=== PATIENT | female | born 1960 | race Caucasian/White ===

== ENCOUNTER → 2023-10-04 09:33 | Outpatient (REF) | payer OTHER, SELFPAY ==
[2023-10-04 10:17] LABS: % Basophils 0.3 % (0-2); % Eosinophils 0.5 % (0-6); % Immature Granulocytes 0.3 % (0-0.5); % Lymphocytes 42.2 % (20.5-51.1); % Monocytes 11.6 % (1.7-9.3); % Neutrophils 45.1 % (42.2-75.2); Absolute Lymphocytes 1.7 10^3/uL (1.2-3.4); Absolute Monocytes 0.5 10^3/uL (0.1-0.6); Absolute Neutrophils 1.8 10^3/uL (1.4-6.5); Hematocrit 28.9 % (37.0-47.0); Hemoglobin 10.2 g/dL (12.0-16.0); Mean Corp Hgb Conc. 35.3 g/dL (33.0-37.0); Mean Corpuscular Hgb 33.1 pg (27.0-31.0); Mean Corpuscular Volume 93.8 fL (81.0-99.0); Mean Platelet Volume 9.5 fL (7.4-10.4); Nucleated Red Blood Cells % 0 %; Platelet Count 117 10^3/uL (130-400); Red Blood Cell Count 3.08 10^6/uL (4.20-5.40); Red Cell Dist. Width 21.8 % (11.5-14.5)
[2023-10-04 13:09] LABS: ALT (SGPT) 19 U/L (0-35); AST (SGOT) 22 U/L (14-36); Albumin 3.9 g/dl (3.5-5.0); Alkaline Phosphatase 162 U/L (38-126); Blood Urea Nitrogen 13 mg/dl (7-17); Calcium 9.2 mg/dl (8.4-10.2); Carbon Dioxide 23 mmol/L (22-30); Chloride 101 mmol/L (98-107); Glucose 89 mg/dl (70-99); Potassium 4.4 mmol/L (3.5-5.1); Sodium 132 mmol/L (135-145); Total Bilirubin 0.5 mg/dl (0.2-1.3); Total Protein 6.1 g/dl (6.3-8.2); eGFR > 60.00
== END ==
LOC: REG 09:33
PROVIDERS: ATTENDING PHYSICIAN Internal Medicine Hematology & Oncology; FAMILY PHYSICIAN Family Medicine
DX: C56.9 Malignant neoplasm of unspecified ovary (principal); Z72.0 Tobacco use; R18.0 Malignant ascites; J91.0 Malignant pleural effusion; Z80.3 Family history of malignant neoplasm of breast; Z80.0 Family history of malignant neoplasm of digestive organs; D75.839 Thrombocytosis, unspecified; G89.3 Neoplasm related pain (acute) (chronic); E46 Unspecified protein-calorie malnutrition
CPT/HCPCS: 36415; 80053; 85025

== ENCOUNTER → 2023-10-11 09:38 | Outpatient (REF) | payer OTHER, SELFPAY ==
[2023-10-11 11:00] LABS: % Basophils 0.3 % (0-2); % Eosinophils 1.1 % (0-6); % Lymphocytes 41.1 % (20.5-51.1); % Neutrophils 54.5 % (42.2-75.2); Absolute Lymphocytes 1.5 10^3/uL (1.2-3.4); Absolute Monocytes 0.1 10^3/uL (0.1-0.6); Hematocrit 28.1 % (37.0-47.0); Hemoglobin 9.9 g/dL (12.0-16.0); Mean Corp Hgb Conc. 35.2 g/dL (33.0-37.0); Mean Corpuscular Hgb 33.4 pg (27.0-31.0); Mean Corpuscular Volume 94.9 fL (81.0-99.0); Nucleated Red Blood Cells % 0 %; Red Blood Cell Count 2.96 10^6/uL (4.20-5.40); Red Cell Dist. Width 22.7 % (11.5-14.5); White Blood Cell Count 3.7 10^3/uL (4.8-10.8)
[2023-10-11 11:23] LABS: ALT (SGPT) 15 U/L (0-35); AST (SGOT) 22 U/L (14-36); Albumin 3.8 g/dl (3.5-5.0); Alkaline Phosphatase 106 U/L (38-126); Blood Urea Nitrogen 11 mg/dl (7-17); Calcium 9.3 mg/dl (8.4-10.2); Carbon Dioxide 24 mmol/L (22-30); Chloride 100 mmol/L (98-107); Glucose 94 mg/dl (70-99); Potassium 4.8 mmol/L (3.5-5.1); Sodium 133 mmol/L (135-145); Total Bilirubin 0.5 mg/dl (0.2-1.3); Total Protein 5.9 g/dl (6.3-8.2); eGFR > 60.00
[2023-10-11 12:07] LABS: Mean Platelet Volume 10.6 fL (7.4-10.4); Platelet Count 67 10^3/uL (130-400)
[2023-10-11 12:08] LABS: Anisocytosis 1+; Normal RBC Morphology No; Ovalocytes Slight
[2023-10-11 12:09] LABS: Tear Drop Red Blood Cells Slight
== END ==
LOC: REG 09:38
PROVIDERS: ATTENDING PHYSICIAN Internal Medicine Hematology & Oncology; FAMILY PHYSICIAN Family Medicine
DX: C56.9 Malignant neoplasm of unspecified ovary (principal); Z72.0 Tobacco use; R18.0 Malignant ascites; J91.0 Malignant pleural effusion; Z80.3 Family history of malignant neoplasm of breast; D75.839 Thrombocytosis, unspecified; G89.3 Neoplasm related pain (acute) (chronic); E46 Unspecified protein-calorie malnutrition
CPT/HCPCS: 36415; 80053; 85025

== ENCOUNTER → 2023-10-18 10:29 | Outpatient (REF) | payer OTHER, SELFPAY ==
[2023-10-18 11:44] LABS: Hematocrit 25.1 % (37.0-47.0); Hemoglobin 8.7 g/dL (12.0-16.0); Mean Corp Hgb Conc. 34.7 g/dL (33.0-37.0); Mean Corpuscular Hgb 33.1 pg (27.0-31.0); Mean Corpuscular Volume 95.4 fL (81.0-99.0); Mean Platelet Volume 10.5 fL (7.4-10.4); Nucleated Red Blood Cells % 0 %; Platelet Count 157 10^3/uL (130-400); Red Blood Cell Count 2.63 10^6/uL (4.20-5.40); White Blood Cell Count 2.7 10^3/uL (4.8-10.8)
[2023-10-18 12:02] LABS: ALT (SGPT) 18 U/L (0-35); AST (SGOT) 25 U/L (14-36); Albumin 3.9 g/dl (3.5-5.0); Alkaline Phosphatase 132 U/L (38-126); Blood Urea Nitrogen 9 mg/dl (7-17); Calcium 8.8 mg/dl (8.4-10.2); Carbon Dioxide 23 mmol/L (22-30); Chloride 104 mmol/L (98-107); Glucose 88 mg/dl (70-99); Potassium 4.4 mmol/L (3.5-5.1); Sodium 130 mmol/L (135-145); Total Bilirubin 0.3 mg/dl (0.2-1.3); eGFR > 60.00
[2023-10-18 15:05] LABS: Absolute Neutrophils -Man Diff 0.9 10^3/uL (1.4-6.5); Atypical Lymphocytes 4 %; Band Neutrophils 0 % (0-3); Lymphocytes 53 % (20-51); Monocytes 6 % (2-9); Segmented Neutrophils 36 % (42-75)
[2023-10-18 15:07] LABS: Platelets Checked Yes
[2023-10-18 15:09] LABS: Acanthocytes Slight; Anisocytosis 1+; Hypochromasia 1+; Normal RBC Morphology No; Ovalocytes 1+; Total Cells Counted 100
== END ==
LOC: REG 10:29
PROVIDERS: ATTENDING PHYSICIAN Internal Medicine Hematology & Oncology; FAMILY PHYSICIAN Family Medicine
DX: C56.9 Malignant neoplasm of unspecified ovary (principal); Z72.0 Tobacco use; R18.0 Malignant ascites; J91.0 Malignant pleural effusion; Z80.3 Family history of malignant neoplasm of breast; Z80.0 Family history of malignant neoplasm of digestive organs; D75.839 Thrombocytosis, unspecified; G89.3 Neoplasm related pain (acute) (chronic); E46 Unspecified protein-calorie malnutrition
CPT/HCPCS: 36415; 80053; 85025

== ENCOUNTER → 2023-10-19 09:05 | Outpatient (REF) | payer OTHER, SELFPAY | LOC: HWRAD 09:05 | PROVIDERS: ATTENDING PHYSICIAN Obstetrics & Gynecology; FAMILY PHYSICIAN Family Medicine | DX: C56.3 Malignant neoplasm of bilateral ovaries (principal) | CPT/HCPCS: 71260; 74177; Q9967 ==

== ENCOUNTER → 2023-10-25 10:00 | Outpatient (REF) | payer OTHER, SELFPAY ==
[2023-10-25 10:43] LABS: % Immature Granulocytes 0.4 % (0-0.5); % Lymphocytes 55.2 % (20.5-51.1); % Monocytes 15.8 % (1.7-9.3); % Neutrophils 28.6 % (42.2-75.2); Absolute Lymphocytes 1.5 10^3/uL (1.2-3.4); Absolute Monocytes 0.4 10^3/uL (0.1-0.6); Absolute Neutrophils 0.8 10^3/uL (1.4-6.5); Hemoglobin 9.5 g/dL (12.0-16.0); Mean Corp Hgb Conc. 35.2 g/dL (33.0-37.0); Mean Corpuscular Hgb 34.1 pg (27.0-31.0); Mean Corpuscular Volume 96.8 fL (81.0-99.0); Mean Platelet Volume 9.1 fL (7.4-10.4); Nucleated Red Blood Cells % 0 %; Platelet Count 142 10^3/uL (130-400); Red Blood Cell Count 2.79 10^6/uL (4.20-5.40); Red Cell Dist. Width 25.8 % (11.5-14.5); White Blood Cell Count 2.8 10^3/uL (4.8-10.8)
[2023-10-25 11:16] LABS: ALT (SGPT) 18 U/L (0-35); AST (SGOT) 21 U/L (14-36); Albumin 4.2 g/dl (3.5-5.0); Alkaline Phosphatase 145 U/L (38-126); Blood Urea Nitrogen 10 mg/dl (7-17); Carbon Dioxide 23 mmol/L (22-30); Chloride 103 mmol/L (98-107); Glucose 89 mg/dl (70-99); Potassium 4.7 mmol/L (3.5-5.1); Sodium 131 mmol/L (135-145); Total Bilirubin 0.5 mg/dl (0.2-1.3); Total Protein 6.4 g/dl (6.3-8.2); eGFR > 60.00
== END ==
LOC: REG 10:00
PROVIDERS: ATTENDING PHYSICIAN Internal Medicine Hematology & Oncology; FAMILY PHYSICIAN Family Medicine
DX: C56.9 Malignant neoplasm of unspecified ovary (principal); Z72.0 Tobacco use; R18.0 Malignant ascites; J91.0 Malignant pleural effusion; Z80.3 Family history of malignant neoplasm of breast; Z80.0 Family history of malignant neoplasm of digestive organs
CPT/HCPCS: 36415; 80053; 85025

== ENCOUNTER → 2023-11-08 10:19 | Outpatient (REF) | payer OTHER, SELFPAY ==
[2023-11-08 11:12] LABS: Hematocrit 26.1 % (37.0-47.0); Hemoglobin 9.3 g/dL (12.0-16.0); Mean Corp Hgb Conc. 35.6 g/dL (33.0-37.0); Mean Corpuscular Hgb 37.1 pg (27.0-31.0); Mean Platelet Volume 10.9 fL (7.4-10.4); Platelet Count 109 10^3/uL (130-400); Red Blood Cell Count 2.51 10^6/uL (4.20-5.40); Red Cell Dist. Width 26.4 % (11.5-14.5); White Blood Cell Count 16.3 10^3/uL (4.8-10.8)
[2023-11-08 11:41] LABS: ALT (SGPT) 20 U/L (0-35); AST (SGOT) 24 U/L (14-36); Alkaline Phosphatase 166 U/L (38-126); Blood Urea Nitrogen 7 mg/dl (7-17); Carbon Dioxide 23 mmol/L (22-30); Chloride 100 mmol/L (98-107); Glucose 84 mg/dl (70-99); Potassium 4.5 mmol/L (3.5-5.1); Sodium 128 mmol/L (135-145); Total Bilirubin 0.4 mg/dl (0.2-1.3); eGFR > 60.00
[2023-11-08 11:57] LABS: Absolute Neutrophils -Man Diff 8.8 10^3/uL (1.4-6.5); Anisocytosis 1+; Band Neutrophils 11 % (0-3); Hypochromasia 1+; Lymphocytes 31 % (20-51); Microcytosis 1+; Monocytes 15 % (2-9); Normal RBC Morphology No; Ovalocytes Slight; Platelets Checked Yes; Poikilocytosis 1+; Segmented Neutrophils 43 % (42-75)
[2023-11-08 11:58] LABS: Total Cells Counted 100
== END ==
LOC: REG 10:19
PROVIDERS: ATTENDING PHYSICIAN Internal Medicine Hematology & Oncology; FAMILY PHYSICIAN Family Medicine
DX: C56.9 Malignant neoplasm of unspecified ovary (principal); Z72.0 Tobacco use; R18.0 Malignant ascites; J91.0 Malignant pleural effusion; Z80.3 Family history of malignant neoplasm of breast; Z80.0 Family history of malignant neoplasm of digestive organs; D75.839 Thrombocytosis, unspecified; G89.3 Neoplasm related pain (acute) (chronic); E46 Unspecified protein-calorie malnutrition
CPT/HCPCS: 36415; 80053; 85025

== ENCOUNTER → 2023-11-10 09:01 | Outpatient (REF) | payer OTHER, SELFPAY | LOC: RAD 09:01 | PROVIDERS: ATTENDING PHYSICIAN Internal Medicine Hematology & Oncology; FAMILY PHYSICIAN Family Medicine | DX: C56.9 Malignant neoplasm of unspecified ovary (principal); G89.3 Neoplasm related pain (acute) (chronic); Z72.0 Tobacco use; R18.0 Malignant ascites; J91.0 Malignant pleural effusion; Z80.3 Family history of malignant neoplasm of breast; Z80.0 Family history of malignant neoplasm of digestive organs; D75.839 Thrombocytosis, unspecified; E46 Unspecified protein-calorie malnutrition | CPT/HCPCS: 74177; Q9967 ==

== ENCOUNTER → 2023-11-15 08:36 | Outpatient (REF) | payer OTHER, SELFPAY ==
[2023-11-15 09:26] LABS: % Basophils 0.4 % (0-2); % Eosinophils 0.4 % (0-6); % Immature Granulocytes 8.8 % (0-0.5); % Monocytes 8.4 % (1.7-9.3); Absolute Basophils 0.1 10^3/uL (0-0.2); Absolute Eosinophils 0.1 10^3/uL (0-0.7); Absolute Immature Granulocytes 1.1 10^3/uL (0-0.05); Absolute Monocytes 1.1 10^3/uL (0.1-0.6); Absolute Neutrophils 8.4 10^3/uL (1.4-6.5); Hematocrit 31.1 % (37.0-47.0); Hemoglobin 11.1 g/dL (12.0-16.0); Mean Corp Hgb Conc. 35.7 g/dL (33.0-37.0); Mean Corpuscular Volume 106.5 fL (81.0-99.0); Mean Platelet Volume 10.1 fL (7.4-10.4); Nucleated Red Blood Cells % 0.2 %; Platelet Count 160 10^3/uL (130-400); Red Blood Cell Count 2.92 10^6/uL (4.20-5.40); Red Cell Dist. Width 26.2 % (11.5-14.5); White Blood Cell Count 12.7 10^3/uL (4.8-10.8)
[2023-11-15 10:16] LABS: ALT (SGPT) 26 U/L (0-35); AST (SGOT) 24 U/L (14-36); Albumin 4.4 g/dl (3.5-5.0); Alkaline Phosphatase 172 U/L (38-126); Blood Urea Nitrogen 8 mg/dl (7-17); Calcium 9.3 mg/dl (8.4-10.2); Carbon Dioxide 22 mmol/L (22-30); Chloride 102 mmol/L (98-107); Glucose 93 mg/dl (70-99); Potassium 4.5 mmol/L (3.5-5.1); Sodium 134 mmol/L (135-145); Total Bilirubin 0.3 mg/dl (0.2-1.3); Total Protein 6.5 g/dl (6.3-8.2); eGFR > 60.00
== END ==
LOC: REG 08:36
PROVIDERS: ATTENDING PHYSICIAN Internal Medicine Hematology & Oncology; FAMILY PHYSICIAN Family Medicine
DX: C56.9 Malignant neoplasm of unspecified ovary (principal); Z72.0 Tobacco use; R18.0 Malignant ascites; J91.0 Malignant pleural effusion; Z80.3 Family history of malignant neoplasm of breast; Z80.0 Family history of malignant neoplasm of digestive organs; D75.839 Thrombocytosis, unspecified; G89.3 Neoplasm related pain (acute) (chronic); E46 Unspecified protein-calorie malnutrition
CPT/HCPCS: 36415; 80053; 85025

== ENCOUNTER → 2023-11-22 10:45 | Outpatient (REF) | payer OTHER, SELFPAY ==
[2023-11-22 12:16] LABS: ALT (SGPT) 18 U/L (0-35); AST (SGOT) 19 U/L (14-36); Albumin 4.1 g/dl (3.5-5.0); Alkaline Phosphatase 145 U/L (38-126); Blood Urea Nitrogen 14 mg/dl (7-17); Calcium 9.1 mg/dl (8.4-10.2); Carbon Dioxide 21 mmol/L (22-30); Chloride 103 mmol/L (98-107); Glucose 109 mg/dl (70-99); Potassium 4.5 mmol/L (3.5-5.1); Sodium 133 mmol/L (135-145); Total Bilirubin 0.2 mg/dl (0.2-1.3); Total Protein 6.2 g/dl (6.3-8.2); eGFR > 60.00
[2023-11-22 12:50] LABS: % Basophils 0.4 % (0-2); % Eosinophils 0.4 % (0-6); % Immature Granulocytes 0.7 % (0-0.5); % Lymphocytes 11.9 % (20.5-51.1); % Monocytes 11.5 % (1.7-9.3); % Neutrophils 75.1 % (42.2-75.2); Absolute Immature Granulocytes 0.1 10^3/uL (0-0.05); Absolute Lymphocytes 0.9 10^3/uL (1.2-3.4); Absolute Monocytes 0.9 10^3/uL (0.1-0.6); Absolute Neutrophils 5.7 10^3/uL (1.4-6.5); Hematocrit 28.6 % (37.0-47.0); Hemoglobin 10.1 g/dL (12.0-16.0); Mean Corp Hgb Conc. 35.3 g/dL (33.0-37.0); Mean Corpuscular Volume 107.5 fL (81.0-99.0); Mean Platelet Volume 9.4 fL (7.4-10.4); Nucleated Red Blood Cells % 0 %; Platelet Count 258 10^3/uL (130-400); Red Blood Cell Count 2.66 10^6/uL (4.20-5.40); Red Cell Dist. Width 23.3 % (11.5-14.5); White Blood Cell Count 7.5 10^3/uL (4.8-10.8)
== END ==
LOC: REG 10:45
PROVIDERS: ATTENDING PHYSICIAN Internal Medicine Hematology & Oncology; FAMILY PHYSICIAN Family Medicine
DX: C56.9 Malignant neoplasm of unspecified ovary (principal); Z72.0 Tobacco use; R18.0 Malignant ascites; J91.0 Malignant pleural effusion; Z80.3 Family history of malignant neoplasm of breast
CPT/HCPCS: 36415; 80053; 85025

== ENCOUNTER → 2023-11-29 10:55 | Outpatient (REF) | payer OTHER, SELFPAY ==
[2023-11-29 12:22] LABS: % Basophils 0.4 % (0-2); % Eosinophils 1.6 % (0-6); % Immature Granulocytes 0.4 % (0-0.5); % Lymphocytes 21.6 % (20.5-51.1); % Monocytes 9.6 % (1.7-9.3); % Neutrophils 66.4 % (42.2-75.2); Absolute Eosinophils 0.1 10^3/uL (0-0.7); Absolute Lymphocytes 1.5 10^3/uL (1.2-3.4); Absolute Monocytes 0.7 10^3/uL (0.1-0.6); Absolute Neutrophils 4.6 10^3/uL (1.4-6.5); Hematocrit 30.5 % (37.0-47.0); Hemoglobin 10.8 g/dL (12.0-16.0); Mean Corp Hgb Conc. 35.4 g/dL (33.0-37.0); Mean Corpuscular Hgb 38.8 pg (27.0-31.0); Mean Corpuscular Volume 109.7 fL (81.0-99.0); Mean Platelet Volume 9.7 fL (7.4-10.4); Nucleated Red Blood Cells % 0 %; Platelet Count 244 10^3/uL (130-400); Red Blood Cell Count 2.78 10^6/uL (4.20-5.40); Red Cell Dist. Width 19.9 % (11.5-14.5); White Blood Cell Count 6.9 10^3/uL (4.8-10.8)
[2023-11-29 12:51] LABS: ALT (SGPT) 18 U/L (0-35); AST (SGOT) 21 U/L (14-36); Albumin 4.4 g/dl (3.5-5.0); Alkaline Phosphatase 157 U/L (38-126); Blood Urea Nitrogen 16 mg/dl (7-17); Calcium 9.4 mg/dl (8.4-10.2); Carbon Dioxide 19 mmol/L (22-30); Chloride 102 mmol/L (98-107); Glucose 128 mg/dl (70-99); Potassium 4.5 mmol/L (3.5-5.1); Sodium 132 mmol/L (135-145); Total Bilirubin 0.4 mg/dl (0.2-1.3); Total Protein 6.6 g/dl (6.3-8.2); eGFR > 60.00
== END ==
LOC: REG 10:55
PROVIDERS: ATTENDING PHYSICIAN Internal Medicine Hematology & Oncology; FAMILY PHYSICIAN Family Medicine
DX: C56.9 Malignant neoplasm of unspecified ovary (principal); Z72.0 Tobacco use; R18.0 Malignant ascites; J91.0 Malignant pleural effusion; Z80.3 Family history of malignant neoplasm of breast; Z80.0 Family history of malignant neoplasm of digestive organs; D75.839 Thrombocytosis, unspecified; G89.3 Neoplasm related pain (acute) (chronic); E46 Unspecified protein-calorie malnutrition
CPT/HCPCS: 36415; 80053; 85025

== ENCOUNTER → 2023-12-08 10:47 | Outpatient (REF) | payer OTHER, SELFPAY ==
[2023-12-08 11:31] LABS: % Basophils 0.3 % (0-2); % Eosinophils 1.1 % (0-6); % Immature Granulocytes 0.5 % (0-0.5); % Lymphocytes 17.4 % (20.5-51.1); % Monocytes 7.3 % (1.7-9.3); % Neutrophils 73.4 % (42.2-75.2); Absolute Eosinophils 0.1 10^3/uL (0-0.7); Absolute Lymphocytes 1.1 10^3/uL (1.2-3.4); Absolute Monocytes 0.5 10^3/uL (0.1-0.6); Absolute Neutrophils 4.8 10^3/uL (1.4-6.5); Hematocrit 25.9 % (37.0-47.0); Hemoglobin 9.2 g/dL (12.0-16.0); Mean Corp Hgb Conc. 35.5 g/dL (33.0-37.0); Mean Corpuscular Hgb 37.4 pg (27.0-31.0); Mean Corpuscular Volume 105.3 fL (81.0-99.0); Mean Platelet Volume 9.3 fL (7.4-10.4); Nucleated Red Blood Cells % 0 %; Platelet Count 280 10^3/uL (130-400); Red Blood Cell Count 2.46 10^6/uL (4.20-5.40); Red Cell Dist. Width 19.8 % (11.5-14.5); White Blood Cell Count 6.6 10^3/uL (4.8-10.8)
[2023-12-08 12:38] LABS: ALT (SGPT) 21 U/L (0-35); AST (SGOT) 27 U/L (14-36); Albumin 3.2 g/dl (3.5-5.0); Alkaline Phosphatase 131 U/L (38-126); Blood Urea Nitrogen 6 mg/dl (7-17); Calcium 8.7 mg/dl (8.4-10.2); Carbon Dioxide 23 mmol/L (22-30); Chloride 106 mmol/L (98-107); Glucose 97 mg/dl (70-99); Potassium 3.8 mmol/L (3.5-5.1); Sodium 136 mmol/L (135-145); Total Bilirubin 0.5 mg/dl (0.2-1.3); Total Protein 5.2 g/dl (6.3-8.2); eGFR > 60.00
== END ==
LOC: REG 10:47
PROVIDERS: ATTENDING PHYSICIAN Internal Medicine Hematology & Oncology; FAMILY PHYSICIAN Family Medicine
DX: C56.9 Malignant neoplasm of unspecified ovary (principal); Z72.0 Tobacco use; R18.0 Malignant ascites; Z80.3 Family history of malignant neoplasm of breast; Z80.0 Family history of malignant neoplasm of digestive organs
CPT/HCPCS: 36415; 80053; 85025

== ENCOUNTER → 2023-12-13 10:55 | Outpatient (REF) | payer OTHER, SELFPAY ==
[2023-12-13 12:57] LABS: % Basophils 0.4 % (0-2); % Eosinophils 2.4 % (0-6); % Immature Granulocytes 0.4 % (0-0.5); % Lymphocytes 13.8 % (20.5-51.1); % Monocytes 5.9 % (1.7-9.3); % Neutrophils 77.1 % (42.2-75.2); Absolute Eosinophils 0.2 10^3/uL (0-0.7); Absolute Lymphocytes 1.3 10^3/uL (1.2-3.4); Absolute Monocytes 0.6 10^3/uL (0.1-0.6); Absolute Neutrophils 7.4 10^3/uL (1.4-6.5); Hematocrit 29.9 % (37.0-47.0); Hemoglobin 9.9 g/dL (12.0-16.0); Mean Corp Hgb Conc. 33.1 g/dL (33.0-37.0); Mean Corpuscular Hgb 36.4 pg (27.0-31.0); Mean Corpuscular Volume 109.9 fL (81.0-99.0); Mean Platelet Volume 9.7 fL (7.4-10.4); Nucleated Red Blood Cells % 0 %; Platelet Count 324 10^3/uL (130-400); Red Blood Cell Count 2.72 10^6/uL (4.20-5.40); Red Cell Dist. Width 17.9 % (11.5-14.5); White Blood Cell Count 9.6 10^3/uL (4.8-10.8)
[2023-12-13 13:30] LABS: ALT (SGPT) 16 U/L (0-35); AST (SGOT) 19 U/L (14-36); Albumin 3.8 g/dl (3.5-5.0); Alkaline Phosphatase 151 U/L (38-126); Blood Urea Nitrogen 7 mg/dl (7-17); Calcium 9.2 mg/dl (8.4-10.2); Carbon Dioxide 23 mmol/L (22-30); Chloride 104 mmol/L (98-107); Glucose 122 mg/dl (70-99); Potassium 4.1 mmol/L (3.5-5.1); Sodium 134 mmol/L (135-145); Total Bilirubin 0.4 mg/dl (0.2-1.3); Total Protein 6.1 g/dl (6.3-8.2); eGFR > 60.00
[2023-12-14 19:01] LABS: CA 125 221 U/mL (0-35)
== END ==
LOC: REG 10:55
PROVIDERS: ATTENDING PHYSICIAN Internal Medicine Hematology & Oncology; FAMILY PHYSICIAN Family Medicine
DX: C56.9 Malignant neoplasm of unspecified ovary (principal); Z72.0 Tobacco use; R18.0 Malignant ascites; J91.0 Malignant pleural effusion; Z80.3 Family history of malignant neoplasm of breast; Z80.0 Family history of malignant neoplasm of digestive organs; D75.839 Thrombocytosis, unspecified; G89.3 Neoplasm related pain (acute) (chronic); E46 Unspecified protein-calorie malnutrition
CPT/HCPCS: 36415; 80053; 85025; 86304

== ENCOUNTER → 2023-12-20 09:58 | Outpatient (REF) | payer OTHER, SELFPAY ==
[2023-12-20 10:53] LABS: % Basophils 0.6 % (0-2); % Eosinophils 2.2 % (0-6); % Immature Granulocytes 0.3 % (0-0.5); % Lymphocytes 20.8 % (20.5-51.1); % Monocytes 7.6 % (1.7-9.3); % Neutrophils 68.5 % (42.2-75.2); Absolute Eosinophils 0.2 10^3/uL (0-0.7); Absolute Lymphocytes 1.5 10^3/uL (1.2-3.4); Absolute Monocytes 0.6 10^3/uL (0.1-0.6); Hematocrit 32.2 % (37.0-47.0); Hemoglobin 11.1 g/dL (12.0-16.0); Mean Corp Hgb Conc. 34.5 g/dL (33.0-37.0); Mean Corpuscular Hgb 36.6 pg (27.0-31.0); Mean Corpuscular Volume 106.3 fL (81.0-99.0); Mean Platelet Volume 9.3 fL (7.4-10.4); Nucleated Red Blood Cells % 0 %; Platelet Count 341 10^3/uL (130-400); Red Blood Cell Count 3.03 10^6/uL (4.20-5.40); Red Cell Dist. Width 15.9 % (11.5-14.5); White Blood Cell Count 7.3 10^3/uL (4.8-10.8)
[2023-12-20 11:15] LABS: ALT (SGPT) 11 U/L (0-35); AST (SGOT) 21 U/L (14-36); Albumin 4.2 g/dl (3.5-5.0); Alkaline Phosphatase 155 U/L (38-126); Blood Urea Nitrogen 10 mg/dl (7-17); Calcium 9.3 mg/dl (8.4-10.2); Carbon Dioxide 23 mmol/L (22-30); Chloride 101 mmol/L (98-107); Glucose 96 mg/dl (70-99); Potassium 4.6 mmol/L (3.5-5.1); Sodium 131 mmol/L (135-145); Total Bilirubin 0.3 mg/dl (0.2-1.3); Total Protein 6.6 g/dl (6.3-8.2); eGFR > 60.00
== END ==
LOC: REG 09:58
PROVIDERS: ATTENDING PHYSICIAN Internal Medicine Hematology & Oncology; FAMILY PHYSICIAN Family Medicine
DX: C56.9 Malignant neoplasm of unspecified ovary (principal); Z72.0 Tobacco use; R18.0 Malignant ascites; J91.0 Malignant pleural effusion; Z80.3 Family history of malignant neoplasm of breast; Z80.0 Family history of malignant neoplasm of digestive organs; D75.839 Thrombocytosis, unspecified; G89.3 Neoplasm related pain (acute) (chronic); E46 Unspecified protein-calorie malnutrition
CPT/HCPCS: 36415; 80053; 85025

== ENCOUNTER → 2023-12-27 10:41 | Outpatient (REF) | payer OTHER, SELFPAY ==
[2023-12-27 11:28] LABS: % Basophils 0.4 % (0-2); % Eosinophils 1.4 % (0-6); % Immature Granulocytes 0.4 % (0-0.5); % Lymphocytes 18.9 % (20.5-51.1); % Monocytes 6.8 % (1.7-9.3); % Neutrophils 72.1 % (42.2-75.2); Absolute Eosinophils 0.1 10^3/uL (0-0.7); Absolute Lymphocytes 1.9 10^3/uL (1.2-3.4); Absolute Monocytes 0.7 10^3/uL (0.1-0.6); Absolute Neutrophils 7.3 10^3/uL (1.4-6.5); Hematocrit 36.4 % (37.0-47.0); Hemoglobin 12.7 g/dL (12.0-16.0); Mean Corp Hgb Conc. 34.9 g/dL (33.0-37.0); Mean Corpuscular Hgb 36.8 pg (27.0-31.0); Mean Corpuscular Volume 105.5 fL (81.0-99.0); Mean Platelet Volume 9.5 fL (7.4-10.4); Nucleated Red Blood Cells % 0 %; Platelet Count 349 10^3/uL (130-400); Red Blood Cell Count 3.45 10^6/uL (4.20-5.40); Red Cell Dist. Width 14.8 % (11.5-14.5); White Blood Cell Count 10.1 10^3/uL (4.8-10.8)
[2023-12-27 12:05] LABS: ALT (SGPT) 12 U/L (0-35); AST (SGOT) 21 U/L (14-36); Alkaline Phosphatase 146 U/L (38-126); Blood Urea Nitrogen 10 mg/dl (7-17); Calcium 10.1 mg/dl (8.4-10.2); Carbon Dioxide 21 mmol/L (22-30); Chloride 95 mmol/L (98-107); Glucose 122 mg/dl (70-99); Potassium 4.4 mmol/L (3.5-5.1); Total Bilirubin 0.6 mg/dl (0.2-1.3); eGFR > 60.00
[2023-12-27 12:11] LABS: Albumin 4.7 g/dl (3.5-5.0); Sodium 126 mmol/L (135-145)
== END ==
LOC: REG 10:41
PROVIDERS: ATTENDING PHYSICIAN Internal Medicine Hematology & Oncology; FAMILY PHYSICIAN Family Medicine
DX: C56.9 Malignant neoplasm of unspecified ovary (principal); Z72.0 Tobacco use; R18.0 Malignant ascites; J91.0 Malignant pleural effusion; Z80.3 Family history of malignant neoplasm of breast; Z80.0 Family history of malignant neoplasm of digestive organs; D75.839 Thrombocytosis, unspecified; G89.3 Neoplasm related pain (acute) (chronic); E46 Unspecified protein-calorie malnutrition
CPT/HCPCS: 36415; 80053; 85025

== ENCOUNTER → 2024-01-03 11:41 | Outpatient (REF) | payer OTHER, SELFPAY ==
[2024-01-03 13:50] LABS: % Basophils 0.4 % (0-2); % Eosinophils 1.5 % (0-6); % Immature Granulocytes 0.4 % (0-0.5); % Lymphocytes 34.6 % (20.5-51.1); % Monocytes 7.1 % (1.7-9.3); Absolute Eosinophils 0.1 10^3/uL (0-0.7); Absolute Lymphocytes 2.9 10^3/uL (1.2-3.4); Absolute Monocytes 0.6 10^3/uL (0.1-0.6); Absolute Neutrophils 4.8 10^3/uL (1.4-6.5); Hematocrit 34.7 % (37.0-47.0); Hemoglobin 11.9 g/dL (12.0-16.0); Mean Corp Hgb Conc. 34.3 g/dL (33.0-37.0); Mean Corpuscular Hgb 35.4 pg (27.0-31.0); Mean Corpuscular Volume 103.3 fL (81.0-99.0); Mean Platelet Volume 9.6 fL (7.4-10.4); Nucleated Red Blood Cells % 0 %; Platelet Count 269 10^3/uL (130-400); Red Blood Cell Count 3.36 10^6/uL (4.20-5.40); Red Cell Dist. Width 13.9 % (11.5-14.5); White Blood Cell Count 8.5 10^3/uL (4.8-10.8)
[2024-01-03 14:35] LABS: ALT (SGPT) 11 U/L (0-35); AST (SGOT) 21 U/L (14-36); Albumin 4.7 g/dl (3.5-5.0); Alkaline Phosphatase 116 U/L (38-126); Blood Urea Nitrogen 11 mg/dl (7-17); Calcium 9.8 mg/dl (8.4-10.2); Carbon Dioxide 21 mmol/L (22-30); Chloride 93 mmol/L (98-107); Glucose 75 mg/dl (70-99); Potassium 4.9 mmol/L (3.5-5.1); Sodium 123 mmol/L (135-145); Total Bilirubin 0.4 mg/dl (0.2-1.3); Total Protein 6.9 g/dl (6.3-8.2); eGFR > 60.00
== END ==
LOC: REG 11:41
PROVIDERS: ATTENDING PHYSICIAN Internal Medicine Hematology & Oncology; FAMILY PHYSICIAN Family Medicine
DX: C56.9 Malignant neoplasm of unspecified ovary (principal); Z72.0 Tobacco use; R18.0 Malignant ascites; J91.0 Malignant pleural effusion; Z80.3 Family history of malignant neoplasm of breast; Z80.0 Family history of malignant neoplasm of digestive organs; D75.839 Thrombocytosis, unspecified; G89.3 Neoplasm related pain (acute) (chronic); E46 Unspecified protein-calorie malnutrition
CPT/HCPCS: 36415; 80053; 85025

== ENCOUNTER → 2024-01-10 10:28 | Outpatient (REF) | payer OTHER, SELFPAY ==
[2024-01-10 12:04] LABS: % Basophils 0.4 % (0-2); % Eosinophils 1.5 % (0-6); % Immature Granulocytes 0.4 % (0-0.5); % Lymphocytes 34.3 % (20.5-51.1); % Monocytes 2.5 % (1.7-9.3); % Neutrophils 60.9 % (42.2-75.2); Absolute Eosinophils 0.1 10^3/uL (0-0.7); Absolute Lymphocytes 1.8 10^3/uL (1.2-3.4); Absolute Monocytes 0.1 10^3/uL (0.1-0.6); Absolute Neutrophils 3.2 10^3/uL (1.4-6.5); Hematocrit 32.7 % (37.0-47.0); Hemoglobin 11.4 g/dL (12.0-16.0); Mean Corp Hgb Conc. 34.9 g/dL (33.0-37.0); Mean Corpuscular Hgb 36.4 pg (27.0-31.0); Mean Corpuscular Volume 104.5 fL (81.0-99.0); Mean Platelet Volume 9.6 fL (7.4-10.4); Nucleated Red Blood Cells % 0 %; Platelet Count 213 10^3/uL (130-400); Red Blood Cell Count 3.13 10^6/uL (4.20-5.40); Red Cell Dist. Width 14.1 % (11.5-14.5); White Blood Cell Count 5.3 10^3/uL (4.8-10.8)
[2024-01-10 12:17] LABS: ALT (SGPT) 20 U/L (0-35); AST (SGOT) 24 U/L (14-36); Albumin 4.6 g/dl (3.5-5.0); Alkaline Phosphatase 135 U/L (38-126); Blood Urea Nitrogen 13 mg/dl (7-17); Calcium 9.8 mg/dl (8.4-10.2); Carbon Dioxide 25 mmol/L (22-30); Chloride 97 mmol/L (98-107); Glucose 93 mg/dl (70-99); Potassium 4.9 mmol/L (3.5-5.1); Sodium 127 mmol/L (135-145); Total Bilirubin 0.4 mg/dl (0.2-1.3); Total Protein 6.8 g/dl (6.3-8.2); eGFR > 60.00
== END ==
LOC: REG 10:28
PROVIDERS: ATTENDING PHYSICIAN Internal Medicine Hematology & Oncology; FAMILY PHYSICIAN Family Medicine
DX: C56.9 Malignant neoplasm of unspecified ovary (principal); Z72.0 Tobacco use; R18.0 Malignant ascites; J91.0 Malignant pleural effusion; Z80.0 Family history of malignant neoplasm of digestive organs; Z80.3 Family history of malignant neoplasm of breast; D75.839 Thrombocytosis, unspecified; G89.3 Neoplasm related pain (acute) (chronic); E46 Unspecified protein-calorie malnutrition
CPT/HCPCS: 36415; 80053; 85025

== ENCOUNTER 2024-01-11 10:48 | Emergency (ER) | payer OTHER, SELFPAY ==
[2024-01-11] VITALS (9 sets, daily range): BP systolic 92–147; BP diastolic 60–83; BMI 20.5
--- NOTE | 2024-01-11 11:28 | ED.GENMED ---
History of Present Illness
<Kierra Denise PA-C - Last Filed: 01/11/24 20:03>
General
Chief Complaint: Vaginal Bleeding
Source: patient
Exam Limitations: none
Time Seen by Provider: 01/11/24 11:22
Nursing documentation reviewed up to this point in time: agreed with
Travel History
Have you had any contact with someone who has COVID-19?: No
Do you have any symptoms of coronavirus? Fever > 100 degrees, chills, cough, shortness of breath, sore throat, loss of taste or smell, muscle aches, or headache?: No
History of Present Illness
History of Present Illness:
This a 63-year-old female with past medical history of ovarian cancer status post total hysterectomy, COPD presenting to the emergency department today with vaginal spotting starting yesterday. Patient states that this started randomly. She states
that it does not occur with urination. Patient states that it occurs on and off and is not heavy. She states that it is dark in color. Of note, she did have her hysterectomy 5 weeks ago and has had no problems until now. She had this operation
done by Dr. Garcia at [facility]. Patient also states that she has nausea, vomiting, and abdominal pain. Patient states that she had both of these chronically through the course of her Cancer treatment and will have on and off bloating
that occurs with this as well. Patient states that however, this past week the symptoms of gotten worse. Patient also notes some lightheadedness and dizziness. Patient denies any syncopal episodes, chest pain, shortness of breath.
Past History
<Kierra Denise PA-C - Last Filed: 01/11/24 20:03>
Past History
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
Social History
Tobacco: Smoker
Alcohol: Daily
Drug: None
Personal:
Living: with family
Family History
Family History: Cancer (Daughter with history of breast cancer) and Other ( Both mother and father with dementia)
Review of Systems
<Kierra Denise PA-C - Last Filed: 01/11/24 20:03>
Review of Systems
All Other Systems: ROS reviewed and negative except as documented in HPI and ROS
Phy Exam
<Kierra Denise PA-C - Last Filed: 01/11/24 20:03>
Physical Exam
Physical Exam:
General: Patient is well appearing and in no acute distress; non-toxic
Skin: Warm and dry, no rashes or lesions
Head: Normocephalic, atraumatic
Eyes: Sclera non-icteric. EOMs intact.
Cardiac: Regular rate
Peripheral Vascular: No lower extremity edema
Pulm: Normal respiratory effort
Abdomen: Mild abdominal tenderness to palpation, abdominal distention, abdomen is non-tympanic to percussion. Normoactive bowel sounds. No palpable masses. No guarding
Neuro: CN II-XII intact, no focal neurologic deficits.
Psychiatric: Appropriate mood and affect.
Course
<Kierra Denise PA-C - Last Filed: 01/11/24 20:03>
Orders/Labs/Results
Orders:
Orders
01/11/24 11:36
CMP [Comprehensive Metabolic Panel] Urgent
Complete Blood Count/With Diff Urgent
Serum Osmolality Urgent
Comment: ADD ON
01/11/24 11:40
Type+Screen Urgent
01/11/24 12:55
Add On- LAB Urgent
Tests Added?: serum osmolality
01/11/24 13:13
Osmolality, Random Urine Urgent
Date Specimen was Collected: 01/11/24
Time Specimen was Collected: 13:12
Urinalysis Reflex To Culture Urgent
Date Specimen was Collected: 01/11/24
Time Specimen was Collected: 12:10
01/11/24 13:27
CT Abd/pelvis W Iv Cont Urgent
Comment:
Reason For Exam: vaginal bleeding, ab distention, recent hysterecto
Abnormal Lab Results
01/11/24 01/11/24
11:36 13:13
RBC 3.09 L 10^6/uL
(4.20-5.40)
Hgb 11.1 L g/dL
(12.0-16.0)
Hct 30.8 L %
(37.0-47.0)
MCV 99.7 H fL
(81.0-99.0)
MCH 35.9 H pg
(27.0-31.0)
Sodium 122 L mmol/L
(135-145)
Chloride 94 L mmol/L
(98-107)
Serum Osmolality 262 L mOsm/kg
(275-300)
Alkaline Phosphatase 132 H U/L
(38-126)
Urine Osmolality 233 L mOsm/kg
(300-900)
01/11/24 11:36
01/11/24 11:36
Vital Signs
Initial and Last Documented VS:
Initial Vital Signs
Temp Pulse Resp BP Pulse Ox
100 F 94 18 127/83 100
01/11/24 10:57 01/11/24 10:57 01/11/24 10:57 01/11/24 10:57 01/11/24 10:57
Last Documented Vital Signs
Temp Pulse Resp BP Pulse Ox
100 F 67 16 134/82 100
01/11/24 10:57 01/11/24 17:00 01/11/24 17:00 01/11/24 17:00 01/11/24 17:00
<Jimenez Cabral MD - Last Filed: 01/11/24 14:12>
Orders/Labs/Results
Orders:
Orders
01/11/24 11:36
CMP [Comprehensive Metabolic Panel] Urgent
Complete Blood Count/With Diff Urgent
Serum Osmolality Urgent
Comment: ADD ON
01/11/24 11:40
Type+Screen Urgent
01/11/24 12:55
Add On- LAB Urgent
Tests Added?: serum osmolality
01/11/24 13:13
Osmolality, Random Urine Urgent
Date Specimen was Collected: 01/11/24
Time Specimen was Collected: 13:12
Urinalysis Reflex To Culture Urgent
Date Specimen was Collected: 01/11/24
Time Specimen was Collected: 12:10
01/11/24 13:27
CT Abd/pelvis W Iv Cont Urgent
Comment:
Reason For Exam: vaginal bleeding, ab distention, recent hysterecto
Abnormal Lab Results
01/11/24 01/11/24
11:36 13:13
RBC 3.09 L 10^6/uL
(4.20-5.40)
Hgb 11.1 L g/dL
(12.0-16.0)
Hct 30.8 L %
(37.0-47.0)
MCV 99.7 H fL
(81.0-99.0)
MCH 35.9 H pg
(27.0-31.0)
Sodium 122 L mmol/L
(135-145)
Chloride 94 L mmol/L
(98-107)
Serum Osmolality 262 L mOsm/kg
(275-300)
Alkaline Phosphatase 132 H U/L
(38-126)
Urine Osmolality 233 L mOsm/kg
(300-900)
01/11/24 11:36
01/11/24 11:36
Vital Signs
Initial and Last Documented VS:
Initial Vital Signs
Temp Pulse Resp BP Pulse Ox
100 F 94 18 127/83 100
01/11/24 10:57 01/11/24 10:57 01/11/24 10:57 01/11/24 10:57 01/11/24 10:57
Last Documented Vital Signs
Temp Pulse Resp BP Pulse Ox
100 F 67 16 134/82 100
01/11/24 10:57 01/11/24 17:00 01/11/24 17:00 01/11/24 17:00 01/11/24 17:00
<Kierra Denise PA-C - Last Filed: 01/11/24 20:03>
MDM/Problems Addressed
Differential Diagnosis Includes:
Differentials include wound dehiscence, intra-abdominal abscess, ascites, small bowel obstruction, vaginal laceration, urethral injury
MDM/Problems Addressed:
Vaginal bleeding
Chronic conditions affecting care:
Metastatic ovarian cancer, COPD, rheumatoid arthritis,
Acute Exacerbation and/or Progression of Chronic Illness:
metastatic ovarian cancer
<LEENA Dahl Last Filed: 01/11/24 20:03>
*Pulse Oximetry
Patient hypoxic: no
*Critical Care Note
Total Time (30-74mins, 75-104mins- exclusive of procedures): Not Applicable
Data Reviewed
Review of Other/Old Records Reveals: Records (Reviewed ER physician documentation from 08/10/2023, 07/26/2023) and Discharge Summary (Reviewed most recent discharge summary)
<Kierra Denise PA-C - Last Filed: 01/11/24 20:03>
Patient Management
Escalation/DeEscalation of care consider admission/obs:
This a 63-year-old female with past medical history of ovarian cancer status post total hysterectomy, COPD presenting to the emergency department today with vaginal spotting starting yesterday. Of note, patient had a hysterectomy 5 weeks ago. On
exam, she appears chronically ill, her skin is hot to touch, her vitals are stable but she does have a low-grade fever. Her abdomen is distended, she has tenderness palpation. Her CT exam reveals a complex fluid collection between the bladder and
the rectum which may be a postop seroma but could be blood or infection.
I spoke over the phone to the gynecologic oncologist orthodontist at [facility] Dr. Dolan who works with Dr. Garcia, patient's surgeon. I reviewed case with him and we discussed outpatient follow up vs discharge. He was happy to
accept patient as a transfer, however feels that she is safe to follow up in the office tomorrow. Patient adamantly refusing transfer and is requesting to follow up as an outpatient. Considering Dr. Dolan is on board with this plan considering
patient has no true fever, no white count, H + H stable, I think this is reasonable. Dr. Dolan made an appointment for patient with Dr. Garcia tomorrow in the office at 9:30 am. Patient stable for discharge with close outpt follow up, return
precautions given.
<Kierra Denise PA-C - Last Filed: 01/11/24 20:03>
Update Note
Update Note:
3:15 pm: Spoke to radiology he notified me that patient had a complex fluid collection between the bladder and the rectum. I have been working personally along with the techs here to try to make contact with surgical oncology/gynecology team for
further recommendations and to set up possible transfer. Plan of care ongoing.
ED Attending Note
<Kierra Denise PA-C - Last Filed: 01/11/24 20:03>
-
Portions of this chart may have been created with voice recognition software.� Occasional wrong word or��sound alike� substitutions may have occurred due to the inherent limitations of voice recognition software.
<Jimenez Cabral MD - Last Filed: 01/11/24 14:12>
ED Attending Note
Patient seen and examined by attending physician: Yes
ED Attending Note:
Patient with history of total hysterectomy 5 weeks ago at [facility], presents to ED secondary to worsening abdominal distention, pain, and nausea, over the past 5 days. In addition, patient reports vaginal bleeding noted this morning.
Denies fever or chills. Denies vomiting. Denies diarrhea. Abdominal pain described as crampy, diffuse, without any alleviating or exacerbating factors. Denies direct trauma. Denies open wound. Denies loss of appetite.
Physical Exam
General: mild distress, not acutely ill. afebrile
Head: nc/at. eomi
Neck: supple. normal range of motion.
Abdomen: normal bowel sounds. mild distention noted with lower abdominal tenderness to palpation. healing surgical scar noted over lower abdomen without wound dehiscence.
Neuro: alert and oriented. no focal neurological deficits
Skin: no rash
Psychiatric: well kept. interactive and cooperative
Extremities: no edema. no calf tenderness.
Hyponatremia, appears to be chronic, for which patient is taking sodium tablets as an outpatient.
CT abdomen pelvis pending.
Discharge Plan
Departure
Patient Disposition: Home (Routine Discharge)
Date of Disposition: 01/11/24
Time of Disposition: 16:50
Patient with high blood pressure during this ER visit?: Yes
Condition: Good
Discharge Problem:
Vaginal bleeding, Abdominal fluid collection
Instructions: BLOOD PRESSURE
Prescriptions:
No Action
acetaminophen 500 mg Tablet
500 - 1,000 mg PO Q6HPRN PRN (Reason: mild pain/fever)
ibuprofen 200 mg Tablet
200 - 400 mg PO Q6HPRN PRN (Reason: mild pain/fever)
pantoprazole [Protonix] 40 mg tablet,delayed release (DR/EC)
40 mg PO BID Qty: 60 0RF
oxycodone 5 mg tablet
5 mg PO Q6HPRN PRN (Reason: mod to severe pain)
Referrals:
Zhen Finley MD [Family Provider] -
Activity Restrictions/Additional Instructions:
PLEASE REPORT TO DR. ESPOSITO'S OFFICE TOMORROW FOR YOUR APPOINTMENT AT 9:30 AM.
BEFORE THEN, IF YOU HAVE DIZZINESS, SYNCOPAL EPISODES, LIGHTHEADEDNESS, FEVERS OR CHILLS, CHEST PAIN, SHORTNESS OF BREATH, ACUTE WORSENING OF YOUR BLEEDING, OR ANY OTHER SIGNS OR SYMPTOMS CONCERNING TO YOU, PLEASE RETURN TO THE EMERGENCY DEPARTMENT
OR CALL 911.
Interventions
Interventions:
*Risk Screen - Suicide Last Done: 01/11/24 10:57
*General Assessment Last Done: 01/11/24 10:57
*Neglect/Abuse Screening Last Done: 01/11/24 10:57
ED- Fall Risk Assessment Last Done: 01/11/24 11:22
*ED COVID-19 Vaccine History Last Done: 01/11/24 10:57
*Nursing Disposition Last Done: 01/11/24 17:10
ED-Female Genitourinary Assessment Last Done: 01/11/24 11:22
Discharge Date and Time
Discharge Date/Time: 01/11/24 17:11
Print Language: EAST [place]
[2024-01-11 11:57] LABS: % Basophils 0.3 % (0-2); % Eosinophils 1.7 % (0-6); % Immature Granulocytes 0.2 % (0-0.5); % Lymphocytes 32.5 % (20.5-51.1); % Monocytes 3.7 % (1.7-9.3); % Neutrophils 61.6 % (42.2-75.2); Absolute Eosinophils 0.1 10^3/uL (0-0.7); Absolute Lymphocytes 1.9 10^3/uL (1.2-3.4); Absolute Monocytes 0.2 10^3/uL (0.1-0.6); Absolute Neutrophils 3.7 10^3/uL (1.4-6.5); Hematocrit 30.8 % (37.0-47.0); Hemoglobin 11.1 g/dL (12.0-16.0); Mean Corpuscular Hgb 35.9 pg (27.0-31.0); Mean Corpuscular Volume 99.7 fL (81.0-99.0); Mean Platelet Volume 9.1 fL (7.4-10.4); Nucleated Red Blood Cells % 0 %; Platelet Count 191 10^3/uL (130-400); Red Blood Cell Count 3.09 10^6/uL (4.20-5.40); Red Cell Dist. Width 13.9 % (11.5-14.5); White Blood Cell Count 5.9 10^3/uL (4.8-10.8)
[2024-01-11 12:15] LABS: ALT (SGPT) 18 U/L (0-35); AST (SGOT) 23 U/L (14-36); Albumin 4.5 g/dl (3.5-5.0); Alkaline Phosphatase 132 U/L (38-126); Blood Urea Nitrogen 12 mg/dl (7-17); Calcium 9.5 mg/dl (8.4-10.2); Carbon Dioxide 24 mmol/L (22-30); Chloride 94 mmol/L (98-107); Estimated Creatinine Clearance 60 ml/min; Glucose 98 mg/dl (70-99); Potassium 4.7 mmol/L (3.5-5.1); Sodium 122 mmol/L (135-145); Total Bilirubin 0.3 mg/dl (0.2-1.3); Total Protein 6.6 g/dl (6.3-8.2); eGFR > 60.00
[2024-01-11 13:45] LABS: Urine Albumin Negative (Neg - Trace); Urine Bilirubin Negative (Negative); Urine Character Clear (Clear); Urine Color Straw; Urine Glucose Negative (Negative); Urine Ketone Negative (Negative); Urine Leukocyte Negative (Negative); Urine Nitrite Negative (Negative); Urine Occult Blood Negative (Negative); Urine Urobilinogen Negative (Neg - 1+)
[2024-01-11 14:12] LABS: Osmolality Urine 233 mOsm/kg (300-900)
[2024-01-11 14:15] LABS: Osmolality Serum 262 mOsm/kg (275-300)
--- NOTE | 2024-01-11 16:52 | VATNOTE ---
Right SQ port flushed with 500 units of heparin and deaccessed.
== END 2024-01-11 17:11 | disposition home or self-care (01) ==
LOC: EMR 10:48
PROVIDERS: Physician Assistant; EMERGENCY PHYSICIAN Emergency Medicine; FAMILY PHYSICIAN Family Medicine
DX: N93.9 Abnormal uterine and vaginal bleeding, unspecified (principal); R18.8 Other ascites; J44.9 Chronic obstructive pulmonary disease, unspecified; M06.9 Rheumatoid arthritis, unspecified; F17.200 Nicotine dependence, unspecified, uncomplicated; Z87.11 Personal history of peptic ulcer disease; Z90.710 Acquired absence of both cervix and uterus
CPT/HCPCS: 99284; 74177; 80053; 81003; 83930; 83935; 85025; Q9967

== ENCOUNTER → 2024-01-12 12:17 | Outpatient (REF) | payer OTHER, SELFPAY ==
[2024-01-12 13:15] LABS: % Basophils 0.4 % (0-2); % Eosinophils 0.9 % (0-6); % Immature Granulocytes 0.7 % (0-0.5); % Lymphocytes 23.1 % (20.5-51.1); % Neutrophils 69.9 % (42.2-75.2); Absolute Eosinophils 0.1 10^3/uL (0-0.7); Absolute Immature Granulocytes 0.1 10^3/uL (0-0.05); Absolute Lymphocytes 2.1 10^3/uL (1.2-3.4); Absolute Monocytes 0.5 10^3/uL (0.1-0.6); Absolute Neutrophils 6.4 10^3/uL (1.4-6.5); Hematocrit 32.4 % (37.0-47.0); Hemoglobin 11.3 g/dL (12.0-16.0); Mean Corp Hgb Conc. 34.9 g/dL (33.0-37.0); Mean Corpuscular Hgb 36.3 pg (27.0-31.0); Mean Corpuscular Volume 104.2 fL (81.0-99.0); Mean Platelet Volume 9.6 fL (7.4-10.4); Nucleated Red Blood Cells % 0 %; Platelet Count 201 10^3/uL (130-400); Red Blood Cell Count 3.11 10^6/uL (4.20-5.40); Red Cell Dist. Width 13.8 % (11.5-14.5); White Blood Cell Count 9.1 10^3/uL (4.8-10.8)
[2024-01-12 13:44] LABS: ALT (SGPT) 18 U/L (0-35); AST (SGOT) 22 U/L (14-36); Albumin 4.5 g/dl (3.5-5.0); Alkaline Phosphatase 130 U/L (38-126); Amylase 62 U/L (30-110); Blood Urea Nitrogen 14 mg/dl (7-17); Calcium 9.3 mg/dl (8.4-10.2); Carbon Dioxide 21 mmol/L (22-30); Chloride 97 mmol/L (98-107); Glucose 111 mg/dl (70-99); Lipase 60 U/L (23-300); Potassium 4.6 mmol/L (3.5-5.1); Sodium 125 mmol/L (135-145); Total Bilirubin 0.2 mg/dl (0.2-1.3); Total Protein 6.7 g/dl (6.3-8.2); eGFR > 60.00
== END ==
LOC: REG 12:17
PROVIDERS: FAMILY PHYSICIAN Family Medicine; OTHER PHYSICIAN Obstetrics & Gynecology
DX: C56.3 Malignant neoplasm of bilateral ovaries (principal); R10.13 Epigastric pain; N76.0 Acute vaginitis
CPT/HCPCS: 36415; 80053; 82150; 83690; 85025

== ENCOUNTER → 2024-01-17 11:10 | Outpatient (REF) | payer OTHER, SELFPAY ==
[2024-01-17 12:08] LABS: % Basophils 0.2 % (0-2); % Eosinophils 0.2 % (0-6); % Immature Granulocytes 0.2 % (0-0.5); % Lymphocytes 37.9 % (20.5-51.1); % Monocytes 10.6 % (1.7-9.3); % Neutrophils 50.9 % (42.2-75.2); Absolute Lymphocytes 1.8 10^3/uL (1.2-3.4); Absolute Monocytes 0.5 10^3/uL (0.1-0.6); Absolute Neutrophils 2.4 10^3/uL (1.4-6.5); Hematocrit 29.7 % (37.0-47.0); Hemoglobin 10.3 g/dL (12.0-16.0); Mean Corp Hgb Conc. 34.7 g/dL (33.0-37.0); Mean Corpuscular Hgb 35.6 pg (27.0-31.0); Mean Corpuscular Volume 102.8 fL (81.0-99.0); Mean Platelet Volume 9.9 fL (7.4-10.4); Nucleated Red Blood Cells % 0 %; Platelet Count 143 10^3/uL (130-400); Red Blood Cell Count 2.89 10^6/uL (4.20-5.40); Red Cell Dist. Width 13.6 % (11.5-14.5); White Blood Cell Count 4.7 10^3/uL (4.8-10.8)
[2024-01-17 12:39] LABS: ALT (SGPT) 18 U/L (0-35); AST (SGOT) 22 U/L (14-36); Albumin 4.3 g/dl (3.5-5.0); Alkaline Phosphatase 140 U/L (38-126); Blood Urea Nitrogen 16 mg/dl (7-17); Calcium 9.5 mg/dl (8.4-10.2); Carbon Dioxide 20 mmol/L (22-30); Chloride 97 mmol/L (98-107); Glucose 91 mg/dl (70-99); Potassium 5.1 mmol/L (3.5-5.1); Sodium 126 mmol/L (135-145); Total Bilirubin 0.2 mg/dl (0.2-1.3); Total Protein 6.6 g/dl (6.3-8.2); eGFR > 60.00
== END ==
LOC: REG 11:10
PROVIDERS: ATTENDING PHYSICIAN Internal Medicine Hematology & Oncology; FAMILY PHYSICIAN Family Medicine
DX: C56.9 Malignant neoplasm of unspecified ovary (principal); Z72.0 Tobacco use; R18.0 Malignant ascites; J91.0 Malignant pleural effusion; Z80.3 Family history of malignant neoplasm of breast; Z80.0 Family history of malignant neoplasm of digestive organs
CPT/HCPCS: 36415; 80053; 85025

== ENCOUNTER → 2024-01-24 13:23 | Outpatient (REF) | payer OTHER, SELFPAY ==
[2024-01-24 14:29] LABS: % Basophils 0.2 % (0-2); % Eosinophils 0.2 % (0-6); % Immature Granulocytes 0.2 % (0-0.5); % Lymphocytes 39.2 % (20.5-51.1); % Monocytes 7.6 % (1.7-9.3); % Neutrophils 52.6 % (42.2-75.2); Absolute Lymphocytes 2.1 10^3/uL (1.2-3.4); Absolute Monocytes 0.4 10^3/uL (0.1-0.6); Absolute Neutrophils 2.8 10^3/uL (1.4-6.5); Hematocrit 27.9 % (37.0-47.0); Hemoglobin 10.1 g/dL (12.0-16.0); Mean Corp Hgb Conc. 36.2 g/dL (33.0-37.0); Mean Corpuscular Hgb 35.4 pg (27.0-31.0); Mean Corpuscular Volume 97.9 fL (81.0-99.0); Nucleated Red Blood Cells % 0 %; Red Blood Cell Count 2.85 10^6/uL (4.20-5.40); Red Cell Dist. Width 14.1 % (11.5-14.5); White Blood Cell Count 5.3 10^3/uL (4.8-10.8)
[2024-01-24 14:36] LABS: ALT (SGPT) 18 U/L (0-35); AST (SGOT) 22 U/L (14-36); Albumin 4.4 g/dl (3.5-5.0); Alkaline Phosphatase 132 U/L (38-126); Blood Urea Nitrogen 8 mg/dl (7-17); Calcium 9.3 mg/dl (8.4-10.2); Carbon Dioxide 23 mmol/L (22-30); Chloride 96 mmol/L (98-107); Glucose 104 mg/dl (70-99); Potassium 4.4 mmol/L (3.5-5.1); Sodium 127 mmol/L (135-145); Total Bilirubin 0.3 mg/dl (0.2-1.3); Total Protein 6.6 g/dl (6.3-8.2); eGFR > 60.00
[2024-01-24 15:01] LABS: Protein/creatinine Ratio 0.6; Urine Protein 16 mg/dl
[2024-01-24 15:16] LABS: Platelet Count 76 10^3/uL (130-400)
== END ==
LOC: REG 13:23
PROVIDERS: ATTENDING PHYSICIAN Internal Medicine Hematology & Oncology; FAMILY PHYSICIAN Family Medicine
DX: C56.9 Malignant neoplasm of unspecified ovary (principal); Z72.0 Tobacco use; R18.0 Malignant ascites; J91.0 Malignant pleural effusion; Z80.3 Family history of malignant neoplasm of breast; Z80.0 Family history of malignant neoplasm of digestive organs; D75.839 Thrombocytosis, unspecified; G89.3 Neoplasm related pain (acute) (chronic); E46 Unspecified protein-calorie malnutrition
CPT/HCPCS: 36415; 80053; 82570; 84156; 85025

== ENCOUNTER → 2024-01-31 10:25 | Outpatient (REF) | payer OTHER, SELFPAY ==
[2024-01-31 11:13] LABS: % Basophils 0.2 % (0-2); % Eosinophils 0.5 % (0-6); % Immature Granulocytes 0.2 % (0-0.5); % Lymphocytes 39.8 % (20.5-51.1); % Neutrophils 53.3 % (42.2-75.2); Absolute Lymphocytes 2.3 10^3/uL (1.2-3.4); Absolute Monocytes 0.4 10^3/uL (0.1-0.6); Absolute Neutrophils 3.1 10^3/uL (1.4-6.5); Hematocrit 28.4 % (37.0-47.0); Hemoglobin 10.1 g/dL (12.0-16.0); Mean Corp Hgb Conc. 35.6 g/dL (33.0-37.0); Mean Corpuscular Hgb 35.6 pg (27.0-31.0); Nucleated Red Blood Cells % 0 %; Red Blood Cell Count 2.84 10^6/uL (4.20-5.40); Red Cell Dist. Width 14.6 % (11.5-14.5); White Blood Cell Count 5.8 10^3/uL (4.8-10.8)
[2024-01-31 11:42] LABS: Mean Platelet Volume 9.7 fL (7.4-10.4); Platelet Count 52 10^3/uL (130-400)
[2024-01-31 12:30] LABS: ALT (SGPT) 18 U/L (0-35); AST (SGOT) 23 U/L (14-36); Albumin 4.3 g/dl (3.5-5.0); Alkaline Phosphatase 155 U/L (38-126); Blood Urea Nitrogen 14 mg/dl (7-17); Calcium 9.2 mg/dl (8.4-10.2); Carbon Dioxide 23 mmol/L (22-30); Chloride 102 mmol/L (98-107); Glucose 97 mg/dl (70-99); Potassium 4.3 mmol/L (3.5-5.1); Sodium 132 mmol/L (135-145); Total Bilirubin 0.2 mg/dl (0.2-1.3); Total Protein 6.6 g/dl (6.3-8.2); eGFR > 60.00
== END ==
LOC: REG 10:25
PROVIDERS: ATTENDING PHYSICIAN Internal Medicine Hematology & Oncology
DX: C56.9 Malignant neoplasm of unspecified ovary (principal); Z72.0 Tobacco use; R18.0 Malignant ascites; J91.0 Malignant pleural effusion; Z80.3 Family history of malignant neoplasm of breast; Z80.0 Family history of malignant neoplasm of digestive organs; D75.839 Thrombocytosis, unspecified; G89.3 Neoplasm related pain (acute) (chronic); E46 Unspecified protein-calorie malnutrition
CPT/HCPCS: 36415; 80053; 85025

== ENCOUNTER → 2024-02-07 11:00 | Outpatient (REF) | payer OTHER, SELFPAY ==
[2024-02-07 11:52] LABS: % Eosinophils 0.3 % (0-6); % Immature Granulocytes 0.3 % (0-0.5); % Lymphocytes 53.9 % (20.5-51.1); % Monocytes 3.9 % (1.7-9.3); % Neutrophils 41.6 % (42.2-75.2); Absolute Lymphocytes 1.8 10^3/uL (1.2-3.4); Absolute Monocytes 0.1 10^3/uL (0.1-0.6); Absolute Neutrophils 1.4 10^3/uL (1.4-6.5); Hematocrit 30.4 % (37.0-47.0); Hemoglobin 10.5 g/dL (12.0-16.0); Mean Corp Hgb Conc. 34.5 g/dL (33.0-37.0); Mean Corpuscular Volume 101.3 fL (81.0-99.0); Nucleated Red Blood Cells % 0 %; Platelet Count 74 10^3/uL (130-400); Red Cell Dist. Width 14.6 % (11.5-14.5); White Blood Cell Count 3.3 10^3/uL (4.8-10.8)
[2024-02-07 12:41] LABS: ALT (SGPT) 22 U/L (0-35); AST (SGOT) 27 U/L (14-36); Albumin 4.6 g/dl (3.5-5.0); Alkaline Phosphatase 134 U/L (38-126); Blood Urea Nitrogen 13 mg/dl (7-17); Calcium 9.7 mg/dl (8.4-10.2); Carbon Dioxide 22 mmol/L (22-30); Chloride 98 mmol/L (98-107); Glucose 96 mg/dl (70-99); Sodium 129 mmol/L (135-145); Total Bilirubin 0.4 mg/dl (0.2-1.3); Total Protein 6.8 g/dl (6.3-8.2); eGFR > 60.00
== END ==
LOC: REG 11:00
PROVIDERS: ATTENDING PHYSICIAN Internal Medicine Hematology & Oncology
DX: C56.9 Malignant neoplasm of unspecified ovary (principal); Z72.0 Tobacco use; R18.0 Malignant ascites; J91.0 Malignant pleural effusion; Z80.3 Family history of malignant neoplasm of breast; Z80.0 Family history of malignant neoplasm of digestive organs; D75.839 Thrombocytosis, unspecified; G89.3 Neoplasm related pain (acute) (chronic); E46 Unspecified protein-calorie malnutrition
CPT/HCPCS: 36415; 80053; 85025

== ENCOUNTER → 2024-02-14 09:47 | Outpatient (REF) | payer OTHER, SELFPAY ==
[2024-02-14 11:01] LABS: % Lymphocytes 59.3 % (20.5-51.1); % Monocytes 6.7 % (1.7-9.3); Absolute Lymphocytes 1.6 10^3/uL (1.2-3.4); Absolute Monocytes 0.2 10^3/uL (0.1-0.6); Absolute Neutrophils 0.9 10^3/uL (1.4-6.5); Hematocrit 26.1 % (37.0-47.0); Hemoglobin 9.2 g/dL (12.0-16.0); Mean Corp Hgb Conc. 35.2 g/dL (33.0-37.0); Mean Corpuscular Hgb 35.1 pg (27.0-31.0); Mean Corpuscular Volume 99.6 fL (81.0-99.0); Mean Platelet Volume 10.3 fL (7.4-10.4); Nucleated Red Blood Cells % 0 %; Platelet Count 53 10^3/uL (130-400); Red Blood Cell Count 2.62 10^6/uL (4.20-5.40); Red Cell Dist. Width 14.4 % (11.5-14.5); White Blood Cell Count 2.7 10^3/uL (4.8-10.8)
[2024-02-14 12:27] LABS: ALT (SGPT) 23 U/L (0-35); AST (SGOT) 26 U/L (14-36); Albumin 4.1 g/dl (3.5-5.0); Alkaline Phosphatase 141 U/L (38-126); Blood Urea Nitrogen 12 mg/dl (7-17); Carbon Dioxide 25 mmol/L (22-30); Chloride 97 mmol/L (98-107); Glucose 87 mg/dl (70-99); Potassium 4.8 mmol/L (3.5-5.1); Sodium 128 mmol/L (135-145); Total Bilirubin 0.3 mg/dl (0.2-1.3); Total Protein 6.3 g/dl (6.3-8.2); eGFR > 60.00
== END ==
LOC: REG 09:47
PROVIDERS: ATTENDING PHYSICIAN Internal Medicine Hematology & Oncology; FAMILY PHYSICIAN Family Medicine
DX: C56.9 Malignant neoplasm of unspecified ovary (principal); Z72.0 Tobacco use; R18.0 Malignant ascites; J91.0 Malignant pleural effusion; Z80.3 Family history of malignant neoplasm of breast; Z80.0 Family history of malignant neoplasm of digestive organs; D75.839 Thrombocytosis, unspecified; G89.3 Neoplasm related pain (acute) (chronic); E46 Unspecified protein-calorie malnutrition
CPT/HCPCS: 36415; 80053; 85025

== ENCOUNTER → 2024-02-15 10:45 | Outpatient (REF) | payer OTHER, SELFPAY | LOC: HWRAD 10:45 | PROVIDERS: ATTENDING PHYSICIAN Nurse Practitioner Family | DX: R59.0 Localized enlarged lymph nodes (principal) | CPT/HCPCS: 76536 ==

== ENCOUNTER → 2024-02-21 10:32 | Outpatient (REF) | payer OTHER, SELFPAY ==
[2024-02-21 11:17] LABS: % Immature Granulocytes 0.2 % (0-0.5); % Lymphocytes 48.6 % (20.5-51.1); % Monocytes 8.1 % (1.7-9.3); % Neutrophils 43.1 % (42.2-75.2); Absolute Lymphocytes 2.1 10^3/uL (1.2-3.4); Absolute Monocytes 0.3 10^3/uL (0.1-0.6); Absolute Neutrophils 1.8 10^3/uL (1.4-6.5); Hematocrit 23.5 % (37.0-47.0); Hemoglobin 8.7 g/dL (12.0-16.0); Mean Corpuscular Hgb 35.7 pg (27.0-31.0); Mean Corpuscular Volume 96.3 fL (81.0-99.0); Nucleated Red Blood Cells % 0 %; Red Blood Cell Count 2.44 10^6/uL (4.20-5.40); Red Cell Dist. Width 14.8 % (11.5-14.5); White Blood Cell Count 4.2 10^3/uL (4.8-10.8)
[2024-02-21 11:41] LABS: Platelet Count 30 10^3/uL (130-400)
[2024-02-21 11:46] LABS: ALT (SGPT) 20 U/L (0-35); AST (SGOT) 24 U/L (14-36); Albumin 4.1 g/dl (3.5-5.0); Alkaline Phosphatase 137 U/L (38-126); Blood Urea Nitrogen 14 mg/dl (7-17); Calcium 9.4 mg/dl (8.4-10.2); Carbon Dioxide 21 mmol/L (22-30); Chloride 102 mmol/L (98-107); Glucose 79 mg/dl (70-99); Potassium 4.3 mmol/L (3.5-5.1); Sodium 132 mmol/L (135-145); Total Bilirubin 0.3 mg/dl (0.2-1.3); Total Protein 6.2 g/dl (6.3-8.2); eGFR > 60.00
== END ==
LOC: REG 10:32
PROVIDERS: ATTENDING PHYSICIAN Internal Medicine Hematology & Oncology; FAMILY PHYSICIAN Family Medicine
DX: C56.9 Malignant neoplasm of unspecified ovary (principal); Z72.0 Tobacco use; R18.0 Malignant ascites; J91.0 Malignant pleural effusion; Z80.3 Family history of malignant neoplasm of breast; Z80.0 Family history of malignant neoplasm of digestive organs; D75.839 Thrombocytosis, unspecified; G89.3 Neoplasm related pain (acute) (chronic); E46 Unspecified protein-calorie malnutrition
CPT/HCPCS: 36415; 80053; 85025

== ENCOUNTER → 2024-02-23 10:42 | Outpatient (REF) | payer OTHER, SELFPAY ==
[2024-02-23 12:27] LABS: Reticulocyte Count 1.1 % (0.4-2.8)
[2024-02-23 12:42] LABS: Erythrocyte Sed Rate 45 mm/hour (0-20)
[2024-02-23 12:54] LABS: Fibrinogen 338 MG/DL (199-459); INR 1.08; PT 13.8 Sec (11.4-14.6)
[2024-02-23 13:23] LABS: Iron 142 ug/dl (37-170)
[2024-02-23 13:34] LABS: Percent Saturation 58 % (20-50); Total Iron Binding Capacity 243 ug/dl (265-497)
[2024-02-23 13:42] LABS: CA 125 24.1 U/mL (0-35)
[2024-02-23 14:19] LABS: Folate 16.5 ng/ml (2.76-20); Vitamin B12 754 pg/ml (239-931)
[2024-02-23 14:29] LABS: LDH 190 U/L (120-246)
[2024-02-25 23:24] LABS: Haptoglobin 159 mg/dL (30-200)
[2024-02-25 23:47] LABS: Erythropoietin (EPO) 447 mU/mL (4-27)
== END ==
LOC: REG 10:42
PROVIDERS: ATTENDING PHYSICIAN Internal Medicine Hematology & Oncology; FAMILY PHYSICIAN Family Medicine
DX: C56.9 Malignant neoplasm of unspecified ovary (principal); Z72.0 Tobacco use; R18.0 Malignant ascites; J91.0 Malignant pleural effusion; Z80.3 Family history of malignant neoplasm of breast; Z80.0 Family history of malignant neoplasm of digestive organs; D75.839 Thrombocytosis, unspecified; G89.3 Neoplasm related pain (acute) (chronic); E46 Unspecified protein-calorie malnutrition; R10.2 Pelvic and perineal pain
CPT/HCPCS: 36415; 82607; 82668; 82728; 82746; 83010; 83540; 83550; 83615; 83921; 85045; 85384; 85610; 85652; 85730; 86304; 86880

== ENCOUNTER → 2024-02-26 12:15 | Outpatient (REF) | payer OTHER, SELFPAY | LOC: RAD 12:15 | PROVIDERS: ATTENDING PHYSICIAN Obstetrics & Gynecology Gynecologic Oncology; FAMILY PHYSICIAN Family Medicine | DX: R10.2 Pelvic and perineal pain (principal); C56.9 Malignant neoplasm of unspecified ovary; Z72.0 Tobacco use; R18.0 Malignant ascites; J91.0 Malignant pleural effusion; Z80.3 Family history of malignant neoplasm of breast; Z80.0 Family history of malignant neoplasm of digestive organs; D75.839 Thrombocytosis, unspecified; G89.3 Neoplasm related pain (acute) (chronic); E46 Unspecified protein-calorie malnutrition | CPT/HCPCS: 74177; Q9967 ==

== ENCOUNTER 2024-03-01 09:41 | Outpatient (RCR) | payer OTHER, SELFPAY ==
[2024-03-01] VITALS (8 sets, daily range): BP systolic 148–179; BP diastolic 69–82
== END 2024-03-03 23:59 | disposition home or self-care (01) ==
LOC: OID 09:41
PROVIDERS: ATTENDING PHYSICIAN Internal Medicine Hematology & Oncology; FAMILY PHYSICIAN Family Medicine
DX: C56.9 Malignant neoplasm of unspecified ovary (principal); D63.0 Anemia in neoplastic disease; D69.59 Other secondary thrombocytopenia; R18.0 Malignant ascites; J91.0 Malignant pleural effusion; G89.3 Neoplasm related pain (acute) (chronic)
CPT/HCPCS: 36415; 36430; 86850; 86900; 86901; 86920; P9058; P9073

== ENCOUNTER → 2024-03-06 12:57 | Outpatient (REF) | payer OTHER, SELFPAY ==
[2024-03-06 13:44] LABS: % Eosinophils 0.3 % (0-6); % Immature Granulocytes 0.3 % (0-0.5); % Lymphocytes 57.3 % (20.5-51.1); % Monocytes 9.4 % (1.7-9.3); % Neutrophils 32.7 % (42.2-75.2); Absolute Lymphocytes 2.3 10^3/uL (1.2-3.4); Absolute Monocytes 0.4 10^3/uL (0.1-0.6); Absolute Neutrophils 1.3 10^3/uL (1.4-6.5); Hemoglobin 9.4 g/dL (12.0-16.0); Mean Corp Hgb Conc. 36.2 g/dL (33.0-37.0); Mean Corpuscular Hgb 33.8 pg (27.0-31.0); Mean Corpuscular Volume 93.5 fL (81.0-99.0); Mean Platelet Volume 11.3 fL (7.4-10.4); Nucleated Red Blood Cells % 0 %; Platelet Count 50 10^3/uL (130-400); Red Blood Cell Count 2.78 10^6/uL (4.20-5.40); Red Cell Dist. Width 16.4 % (11.5-14.5); White Blood Cell Count 3.9 10^3/uL (4.8-10.8)
[2024-03-06 14:29] LABS: ALT (SGPT) 15 U/L (0-35); AST (SGOT) 20 U/L (14-36); Albumin 4.2 g/dl (3.5-5.0); Alkaline Phosphatase 133 U/L (38-126); Blood Urea Nitrogen 13 mg/dl (7-17); Calcium 9.1 mg/dl (8.4-10.2); Carbon Dioxide 22 mmol/L (22-30); Chloride 95 mmol/L (98-107); Glucose 81 mg/dl (70-99); Potassium 4.2 mmol/L (3.5-5.1); Sodium 126 mmol/L (135-145); Total Bilirubin 0.4 mg/dl (0.2-1.3); Total Protein 6.3 g/dl (6.3-8.2); eGFR > 60.00
== END ==
LOC: REG 12:57
PROVIDERS: ATTENDING PHYSICIAN Internal Medicine Hematology & Oncology; FAMILY PHYSICIAN Family Medicine
DX: C56.9 Malignant neoplasm of unspecified ovary (principal); Z80.3 Family history of malignant neoplasm of breast; Z80.0 Family history of malignant neoplasm of digestive organs; R18.0 Malignant ascites; J91.0 Malignant pleural effusion; G89.3 Neoplasm related pain (acute) (chronic); D75.839 Thrombocytosis, unspecified; Z72.0 Tobacco use; E46 Unspecified protein-calorie malnutrition; R10.2 Pelvic and perineal pain
CPT/HCPCS: 36415; 80053; 85025

== ENCOUNTER 2024-03-08 19:28 | Observation (INO) | payer OTHER, SELFPAY ==
[2024-03-08 14:05] VITALS: BP 171/100
--- NOTE | 2024-03-08 15:36 | ED.GENMED ---
History of Present Illness
General
Chief Complaint: Abnormal Lab Value
Time Seen by Provider: 03/08/24 15:36
History of Present Illness
History of Present Illness:
HPI: The patient presents due to concerns for outpatient blood work that showed hyponatremia. The sodium level was 126 2 days ago. She was told to come here by Dr. Thorne of [facility]. Overall she has been feeling poorly with
headache and some mild abdominal discomfort. She only started having a little bit of diarrhea today. She also states that she has her chemo on hold because of recent transfusion including blood and platelets.
EXAM:
GENERAL: Appears somewhat chronically ill and somewhat weak
HEENT: Moist oral mucosa
CARDIOVASCULAR: No murmurs, normal heart rate, regular rhythm, No chest wall tenderness, port noted in the right upper chest wall
PULMONARY: No respiratory distress, breath sounds are clear and equal
ABDOMEN: Soft with no peritoneal signs, no tenderness
NEUROLOGIC: Excellent strength all extremities, no coordination deficits
PSYCHIATRIC: Appropriate mental status, normal insight and judgement
EXTREMITIES: Nontender, no edema, moves all extremities equally
SKIN: No rash, no lesions
TIME OF INITIAL ENCOUNTER: 3:45 PM
NUMBER AND COMPLEXITY OF PROBLEMS ADDRESSED AT THE ENCOUNTER
� Chronic conditions affecting care: Ovarian cancer and has had malignant pleural effusion and malignant ascites, COPD, high blood pressure, gastric ulcers, history of thrombocytopenia, has had hysterectomy
� Acute Exacerbation and/or Progression of Chronic Illness: This is an acute problem but based on records sodiums have been low in the past
� Differential Diagnosis includes: Medication related, dehydration, SIADH
AMOUNT AND/OR COMPLEXITY OF DATA TO BE REVIEWED AND ANALYZED
� I performed an independent evaluation of and my interpretation is:
EKG:
CT:
X-rays:
Laboratory Studies: Sodium again at 126, urine sodium pending
Other:
� Review of other/old records: Sodium from 03/06/2024 was 126. On 01/03/2024 the patient's sodium was 123
� Clinical information was obtained by an independent historian: Spoke to at bedside
� Prescriptions/Medications Considered but not given:
� Further testing considered but not performed:
RISK OF COMPLICATIONS AND/OR MORBIDITY OR MORTALITY OF PATIENT MANAGEMENT
� Social determinants of health affecting care: Lives at home
� Discussion with other providers: Notified Dr. Parham of patient's presentation however he did not have any further recommendations; hospitalist Dr. Mares for admission
� Escalation of care including admission/observation vs risk of discharge considered: The patient's sodium again is 126. She has a general unwell feeling. She does tell me now that she does not fluid restrict as previously
recommended and 'only drinks a lot of water'. Suspect hyponatremia related to SIADH as well as polydipsia.
Past History
Past History
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
Social History
Tobacco: Smoker
Alcohol: Daily
Drug: None
Personal:
Living: with family
Family History
Family History: Cancer (Daughter with history of breast cancer) and Other ( Both mother and father with dementia)
Phy Exam
Physical Exam
Physical Exam:
See HPI
Course
Orders/Labs/Results
Orders:
Orders
03/08/24 15:37
Osmolality, Random Urine Urgent
Urine Sodium Urgent
03/08/24 16:18
Basic Metabolic Panel Urgent
Complete Blood Count/No Diff Urgent
LFT [[id number]] Urgent
Lipase Urgent
Serum Osmolality Urgent
Abnormal Lab Results
03/08/24
16:18
WBC 4.0 L 10^3/uL
(4.8-10.8)
RBC 2.80 L 10^6/uL
(4.20-5.40)
Hgb 9.7 L g/dL
(12.0-16.0)
Hct 27.0 L %
(37.0-47.0)
MCH 34.6 H pg
(27.0-31.0)
RDW 16.8 H %
(11.5-14.5)
Plt Count 79 L D 10^3/uL
(130-400)
MPV 10.6 H fL
(7.4-10.4)
Sodium 126 L mmol/L
(135-145)
Alkaline Phosphatase 151 H U/L
(38-126)
Total Protein 6.2 L g/dl
(6.3-8.2)
03/08/24 16:18
03/08/24 16:18
Vital Signs
Initial and Last Documented VS:
Initial Vital Signs
Temp Pulse Resp BP Pulse Ox
99.3 F 90 16 171/100 99
03/08/24 14:05 03/08/24 14:05 03/08/24 14:05 03/08/24 14:05 03/08/24 14:05
Last Documented Vital Signs
Temp Pulse Resp BP Pulse Ox
99.3 F 63 13 140/72 99
03/08/24 14:05 03/08/24 17:00 03/08/24 17:00 03/08/24 17:00 03/08/24 17:00
*Critical Care Note
Total Time (30-74mins, 75-104mins- exclusive of procedures): Not Applicable
ED Attending Note
-
Portions of this chart may have been created with voice recognition software.� Occasional wrong word or��sound alike� substitutions may have occurred due to the inherent limitations of voice recognition software.
Discharge Plan
Departure
Patient Disposition: Admit
Date of Disposition: 03/08/24
Time of Disposition: 17:54
Presentation/result/management discussed w/ accepting MD/DO: Hospitalist
Patient with high blood pressure during this ER visit?: Yes
Discharge Problem:
Hyponatremia
Prescriptions:
No Action
acetaminophen 500 mg Tablet
500 mg PO Q6HPRN PRN (Reason: mild pain/fever)
pantoprazole [Protonix] 40 mg tablet,delayed release (DR/EC)
40 mg PO BID Qty: 60 0RF
ondansetron HCl [Zofran] 8 mg Tablet
8 mg PO Q8HPRN PRN (Reason: nausea)
lisinopril 20 mg Tablet
20 mg PO DAILY
oxycodone-acetaminophen [Percocet] 5-325 mg Tablet
1 tab PO Q4HPRN PRN (Reason: moderate pain)
Patient Comments:
03/08/2024: last filled 02/14/24, 90 tabs for 15 days from [facility]
ibuprofen 600 mg tablet
600 mg PO Q4HPRN PRN (Reason: mild pain/fever)
Referrals:
Zhen Finley MD [Family Provider] -
Interventions
Interventions:
*Risk Screen - Suicide Last Done: 03/08/24 17:06
*General Assessment Last Done: 03/08/24 14:05
*Neglect/Abuse Screening Last Done: 03/08/24 17:06
*ED COVID-19 Vaccine History Last Done: 03/08/24 14:05
Discharge Date and Time
Print Language: WELSH
[2024-03-08 15:54] VITALS: BP 149/62
[2024-03-08 16:00] VITALS: BP 156/76
[2024-03-08 16:33] LABS: Hemoglobin 9.7 g/dL (12.0-16.0); Mean Corp Hgb Conc. 35.9 g/dL (33.0-37.0); Mean Corpuscular Hgb 34.6 pg (27.0-31.0); Mean Corpuscular Volume 96.4 fL (81.0-99.0); Mean Platelet Volume 10.6 fL (7.4-10.4); Red Cell Dist. Width 16.8 % (11.5-14.5)
[2024-03-08 16:46] LABS: Platelet Count 79 10^3/uL (130-400)
[2024-03-08 16:47] LABS: ALT (SGPT) 22 U/L (0-35); AST (SGOT) 32 U/L (14-36); Albumin 4.2 g/dl (3.5-5.0); Alkaline Phosphatase 151 U/L (38-126); Blood Urea Nitrogen 12 mg/dl (7-17); Calcium 8.8 mg/dl (8.4-10.2); Carbon Dioxide 23 mmol/L (22-30); Chloride 98 mmol/L (98-107); Direct Bilirubin 0.2 mg/dl (0.0-0.4); Glucose 93 mg/dl (70-99); Lipase 38 U/L (23-300); Potassium 4.2 mmol/L (3.5-5.1); Sodium 126 mmol/L (135-145); Total Bilirubin 0.2 mg/dl (0.2-1.3); Total Protein 6.2 g/dl (6.3-8.2); eGFR > 60.00
[2024-03-08 17:00] VITALS: BP 140/72
[2024-03-08 18:42] LABS: Osmolality Serum 265 mOsm/kg (275-300)
--- NOTE | 2024-03-08 18:52 | HPS.HSE ---
Family Physician
-
Family Physician: Zhen Finley
Chief Complaint
-
abdominal pain, headache
History of Present Illness
63-year-old female past medical history of metastatic ovarian cancer with malignant ascites/pleural effusion status post recent chemotherapy, hyponatremia, rheumatoid arthritis, gastric ulcer/GERD, hypertension, presenting for outpatient blood work
which showed hyponatremia. Sodium level is 126 two days ago. She was told to come here by Dr. Thorne. Overall she has been feeling poorly with headache, mild abdominal discomfort, nausea, chronic balance dysfunction. She had an episode of
diarrhea today. Her chemotherapy has recently been on hold due to anemia and thrombocytopenia requiring transfusions. She has been feeling weak with some balance dysfunction, headaches.
She last received chemotherapy 3 weeks ago.
She drinks roughly 4 plastic water bottles worth of fluids per day. She denies any increased fluid intake recently.
She smokes 2 cigarettes a day. She drinks alcohol occasionally.
Medical History
Past Medical History
Past Medical History: Reports Other ( metastatic ovarian cancer with malignant ascites/pleural effusion status post recent chemotherapy, hyponatremia, rheumatoid arthritis, gastric ulcer/GERD, hypertension)
Past Surgical History: Reports None
Social History
Tobacco: Smoker
Alcohol: Occasional
Drug: None
Family History
Family History: Not pertinent
Allergies / Home Medications
Allergies reflects when Allergies were last updated in [facility].
Home Medications with original date entered in [facility]
Allergy/Medication List:
Allergies
Allergy/AdvReac Type Severity Reaction Status Date / Time
No Known Allergies Allergy Verified 03/08/24 14:07
Home Medications
acetaminophen 500 mg tablet 500 mg PO Q6HPRN PRN mild pain/fever 07/14/23
pantoprazole 40 mg tablet,delayed release (Protonix) 40 mg PO BID #60 tabs 07/19/23
lisinopril 20 mg tablet 20 mg PO DAILY 03/01/24
ondansetron HCl 8 mg tablet 8 mg PO Q8HPRN PRN nausea 03/01/24
oxycodone-acetaminophen 5 mg-325 mg tablet (Percocet) 1 tab PO Q4HPRN PRN moderate pain 03/01/24
ibuprofen 600 mg tablet 600 mg PO Q4HPRN PRN mild pain/fever 03/08/24
Review of Systems
-
History Source: Patient
A 12 point ROS was completed and negative except as noted: Yes
Constitutional: Reports No Symptoms
EENT: Reports No Symptoms
Respiratory: Reports No Symptoms
Cardiac: Reports No Symptoms
Abdomen/GI: Reports See HPI
: Reports No Symptoms
Musculoskeletal: Reports No Symptoms
Skin: Reports No Symptoms
Neurological: Reports See HPI
Endocrine: Reports No Symptoms
Hematologic/Lymphatic: Reports No Symptoms
Psych: Reports No Symptoms
Physical Exam
Vital Signs
Vital Signs
Temp Pulse Resp BP Pulse Ox
99.3 F 63 13 140/72 99
03/08/24 14:05 03/08/24 17:00 03/08/24 17:00 03/08/24 17:00 03/08/24 17:00
Physical Exam
General: Well Developed, Well Nourished and No Apparent Distress
HEENT: NormoCephalic, Moist mucous membranes and Atraumatic
Respiratory: Clear
Cardiac: S1/S2 and Regular Rhythm; No Murmur or Rub
GI: Soft, Non Distended, Normal Bowel Sounds and Tender; No Organomegaly
Rectal: Deferred by Provider
Musculoskeletal: No Clubbing, No Cyanosis and No Edema
Skin: No Rash
Neuro: Nonfocal/grossly intact
Laboratory Results
-
03/08/24 16:18
03/08/24 16:18
Laboratory Results
Total Bilirubin 0.2 mg/dl (0.2-1.3) 03/08/24 16:18
AST 32 U/L (14-36) 03/08/24 16:18
ALT 22 U/L (0-35) 03/08/24 16:18
Alkaline Phosphatase 151 U/L (38-126) H 03/08/24 16:18
Lipase 38 U/L (23-300) 03/08/24 16:18
Data Reviewed
-
Lab Data: Labs Reviewed by me
Old Records: Reviewed
Impression/Plan
-
IMPRESSION:
PLAN:
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
-Check urine sodium, osmolality
-Fluid restriction 40 ounces
-May benefit from Samsca, nephrology consulted
Metastatic ovarian cancer with malignant ascites/pleural effusion status post recent chemotherapy
-Check abdominal ultrasound to evaluate for ascites that may require paracentesis
-Chemotherapy currently on hold due to anemia/thrombocytopenia
-Continue Percocet for chronic pain
-Continue Zofran for nausea
Pancytopenia secondary to chemotherapy
-Counts appear stable
Active smoker
Rheumatoid arthritis
-Not on treatment
Gastric ulcer/GERD
-Continue Protonix
Essential hypertension
-Continue lisinopril
Full code
DVT prophylaxis�SCDs
Regular diet
[2024-03-08 20:36] LABS: Osmolality Urine 151 mOsm/kg (300-900)
[2024-03-08 20:42] LABS: Urine Sodium 33 mmol/L (30-90)
[2024-03-08 21:05] VITALS: BP 168/83; BMI 21.3
[2024-03-08] MEDS: MOTRIN 600 MG PO (21:50)
[2024-03-08] MEDS: PROTONIX 40 MG PO (21:50)
--- NOTE | 2024-03-08 21:53 | PTCARENOTE ---
Pt. admitted through E.D., AAO x 3, vs stable, skin intact, NSR on monitor, call winter within reach.
[2024-03-08 23:00] VITALS: BP 140/82
[2024-03-09 03:00] VITALS: BP 140/82
[2024-03-09] MEDS: MOTRIN 600 MG PO (05:02)
[2024-03-09 06:00] VITALS: BMI 20.9
[2024-03-09 06:13] LABS: % Basophils 0.3 % (0-2); % Immature Granulocytes 0.3 % (0-0.5); % Lymphocytes 55.2 % (20.5-51.1); % Monocytes 12.5 % (1.7-9.3); % Neutrophils 30.7 % (42.2-75.2); Absolute Lymphocytes 1.6 10^3/uL (1.2-3.4); Absolute Monocytes 0.4 10^3/uL (0.1-0.6); Hematocrit 27.3 % (37.0-47.0); Mean Corp Hgb Conc. 36.6 g/dL (33.0-37.0); Mean Corpuscular Hgb 34.2 pg (27.0-31.0); Mean Corpuscular Volume 93.5 fL (81.0-99.0); Mean Platelet Volume 10.6 fL (7.4-10.4); Nucleated Red Blood Cells % 0 %; Platelet Count 81 10^3/uL (130-400); Red Blood Cell Count 2.92 10^6/uL (4.20-5.40); Red Cell Dist. Width 17.2 % (11.5-14.5); White Blood Cell Count 2.9 10^3/uL (4.8-10.8)
[2024-03-09 07:20] LABS: ALT (SGPT) 23 U/L (0-35); AST (SGOT) 30 U/L (14-36); Albumin 4.2 g/dl (3.5-5.0); Alkaline Phosphatase 141 U/L (38-126); Blood Urea Nitrogen 12 mg/dl (7-17); Calcium 9.2 mg/dl (8.4-10.2); Carbon Dioxide 22 mmol/L (22-30); Chloride 104 mmol/L (98-107); Estimated Creatinine Clearance 52 ml/min; Glucose 95 mg/dl (70-99); Potassium 4.4 mmol/L (3.5-5.1); Sodium 131 mmol/L (135-145); Total Bilirubin 0.4 mg/dl (0.2-1.3); Total Protein 6.3 g/dl (6.3-8.2); eGFR > 60.00
[2024-03-09] MEDS: PROTONIX 40 MG PO (07:48)
[2024-03-09] MEDS: ZESTRIL 20 MG PO (07:48)
[2024-03-09 08:00] VITALS: BP 153/93
[2024-03-09 08:56] LABS: Absolute Neutrophils 0.9 10^3/uL (1.4-6.5)
--- NOTE | 2024-03-09 10:12 | W.PN.HOSP.TC ---
Today's Communication/Plan
-
Discharge planning today.
Assessment / Plan
Assessment / Plan
Physical exam:
General: Chronically ill
HEENT: Normocephalic, Atraumatic and Moist Mucous Membranes
Respiratory: Clear to Auscultation; Negative Wheezes, Rales or Rhonchi
Cardiac: Regular Rhythm and S1/S2
GI: Soft, Nontender and Nondistended
Musculoskeletal: No Clubbing, No Cyanosis and No Edema
Neuro: Awake, Alert and Oriented
Psych: Calm
A/P:
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
Patient sodium is 131 today
Continue fluid restriction
Discussed with nephrology and no need to see as inpatient recommended continue fluid restriction as outpatient
Plan to discharge today
Prior to today:
-Check urine sodium, osmolality
-Fluid restriction 40 ounces
-May benefit from [place], nephrology consulted
Metastatic ovarian cancer with malignant ascites/pleural effusion status post recent chemotherapy
Patient follows up with oncology as outpatient and she has an appointment this coming week. Encouraged her to keep current appointment. Remains afebrile and follow-up CBC as outpatient.
Ultrasound no ascites. No further workup.
Prior to today:
-Check abdominal ultrasound to evaluate for ascites that may require paracentesis
-Chemotherapy currently on hold due to anemia/thrombocytopenia
-Continue Percocet for chronic pain
-Continue Zofran for nausea
Pancytopenia secondary to chemotherapy
-Counts appear stable
Active smoker
Rheumatoid arthritis
-Not on treatment
Gastric ulcer/GERD
-Continue Protonix
Essential hypertension
-Continue lisinopril
Full code
DVT prophylaxis�SCDs
Anticipated Discharge: Today
Subjective/Interval History
-
Date of Service: March 09, 2024
Patient feels back to her baseline. Afebrile
Objective Data
-
Labs:
Laboratory Results
03/09/24
05:58
WBC 2.9 L
Hgb 10.0 L
Hct 27.3 L
Plt Count 81 L
Sodium 131 L
Potassium 4.4
Chloride 104
Carbon Dioxide 22
BUN 12
Creatinine 0.8
Glucose 95
Calcium 9.2
Total Bilirubin 0.4
AST 30
ALT 23
Alkaline Phosphatase 141 H
Vital Signs:
Vital Signs
Temp Pulse Resp BP Pulse Ox
98.3 F 70 18 153/93 94
03/09/24 08:00 03/09/24 08:00 03/09/24 08:00 03/09/24 08:00 03/09/24 08:00
I&O
03/08/24 03/09/24 03/10/24
06:59 06:59 06:59
Intake Total 240 / 240
Balance 240 / 240
--- NOTE | 2024-03-09 11:17 | CM ---
Reviewed the chart notes and spoke with the patient at the bedside. The patient is being admitted under observational status. Observational letter provided and explained. The patient had no questions with regards to the letter.
The patient resides with her spouse in a one story home with one step to enter. The patient reports no DME/VN/SNF. The patient confirmed her pharmacy of choice is the [facility]. Patient anticipates being discharged to home with
no needs. Patient's family will provide transportation. CM continues to be available to patient/family and is monitoring medical plan for needs at discharge.
Plan: Discharge to home when medically stable.
[2024-03-09 12:05] VITALS: BP 153/70
--- NOTE | 2024-03-09 13:21 | W.DCSUMMARY ---
Discharge Summary
Discharge Data
Date of Admission: 03/08/24
Date of Discharge: 03/09/24
-
Pending Results: No
Hospital Course
Patient 63 years old female with history of metastatic ovarian cancer and multiple other comorbidities came into the hospital because of hyponatremia. Patient was placed on fluid restriction. Urine osmolarity 151 and urine sodium 33. Serum
osmolarity 265. Her sodium was 126 and went up appropriately to 131. Nephrology initially consulted but they recommended continue fluid restriction and no need to see as inpatient. Patient had an ultrasound of the abdomen with no evidence of
ascites. She does have some pancytopenia but she is afebrile and no signs of active bleeding and her numbers are close to her baseline. Patient has a follow-up with oncology and she will see them as outpatient this week. No other events were
noticed. Otherwise remains hemodynamically stable. Patient will be discharged in stable condition today.
Discharge duration: 35 minutes
Discharge Plan
-
Patient Disposition: Home (Routine Discharge)
Discharge Diagnosis/Procedures: Hyponatremia. Metastatic ovarian cancer.
Diet: Restrict fluids to 48 oz
Activity: As tolerated
Blood Work: Please PCP to order CBC, BMP within 1 week.
Referrals:
Zhen Finley MD [Family Provider] - in less than 1 week
Prescriptions:
Continued
acetaminophen 500 mg Tablet
500 mg PO Q6HPRN PRN (Reason: mild pain/fever)
pantoprazole [Protonix] 40 mg tablet,delayed release (DR/EC)
40 mg PO BID Qty: 60 0RF
ondansetron HCl 8 mg Tablet
8 mg PO Q8HPRN PRN (Reason: nausea)
lisinopril 20 mg Tablet
20 mg PO DAILY
oxycodone-acetaminophen [Percocet] 5-325 mg Tablet
1 tab PO Q4HPRN PRN (Reason: moderate pain)
Patient Comments:
03/08/2024: last filled 02/14/24, 90 tabs for 15 days from [id number]
Discontinued
ibuprofen 600 mg tablet
600 mg PO Q4HPRN PRN (Reason: mild pain/fever)
Discharge Orders:
Discharge Patient (As Directed); Ordered 03/09/24
Ordered By: Dirk Torres
Discharge Date and Time
Discharge Date/Time: 03/09/24 14:21
Print Language: [place]
== END 2024-03-09 14:21 | disposition home or self-care (01) ==
LOC: 4 WEST ACU 19:28
PROVIDERS: ADMITTING PHYSICIAN Hospitalist; ATTENDING PHYSICIAN Hospitalist; EMERGENCY PHYSICIAN Emergency Medicine; FAMILY PHYSICIAN Family Medicine
DX: E87.1 Hypo-osmolality and hyponatremia (principal); C56.9 Malignant neoplasm of unspecified ovary; D61.810 Antineoplastic chemotherapy induced pancytopenia; T45.1X5A Adverse effect of antineoplastic and immunosuppressive drugs, initial encounter; R51.9 Headache, unspecified; R19.7 Diarrhea, unspecified; G89.29 Other chronic pain; R11.0 Nausea; R10.9 Unspecified abdominal pain; R79.89 Other specified abnormal findings of blood chemistry; J44.9 Chronic obstructive pulmonary disease, unspecified; M06.9 Rheumatoid arthritis, unspecified; I10 Essential (primary) hypertension; K21.9 Gastro-esophageal reflux disease without esophagitis; D64.9 Anemia, unspecified; F17.210 Nicotine dependence, cigarettes, uncomplicated; Z82.0 Family history of epilepsy and other diseases of the nervous system; Z92.21 Personal history of antineoplastic chemotherapy; Z87.11 Personal history of peptic ulcer disease; Z80.3 Family history of malignant neoplasm of breast
CPT/HCPCS: 76705; 80048; 80053; 80076; 83690; 83930; 83935; 84300; 85025; 85027; 99285; 99406; G0378

== ENCOUNTER → 2024-03-14 10:19 | Outpatient (REF) | payer OTHER, SELFPAY ==
[2024-03-14 10:49] LABS: % Basophils 0.2 % (0-2); % Eosinophils 0.2 % (0-6); % Immature Granulocytes 0.6 % (0-0.5); % Lymphocytes 40.2 % (20.5-51.1); % Monocytes 9.4 % (1.7-9.3); % Neutrophils 49.4 % (42.2-75.2); Absolute Lymphocytes 2.1 10^3/uL (1.2-3.4); Absolute Monocytes 0.5 10^3/uL (0.1-0.6); Absolute Neutrophils 2.6 10^3/uL (1.4-6.5); Hematocrit 30.2 % (37.0-47.0); Hemoglobin 11.1 g/dL (12.0-16.0); Mean Corp Hgb Conc. 36.8 g/dL (33.0-37.0); Mean Corpuscular Hgb 36.5 pg (27.0-31.0); Mean Corpuscular Volume 99.3 fL (81.0-99.0); Mean Platelet Volume 9.8 fL (7.4-10.4); Nucleated Red Blood Cells % 0 %; Platelet Count 164 10^3/uL (130-400); Red Blood Cell Count 3.04 10^6/uL (4.20-5.40); Red Cell Dist. Width 19.2 % (11.5-14.5); White Blood Cell Count 5.3 10^3/uL (4.8-10.8)
[2024-03-14 11:26] LABS: ALT (SGPT) 22 U/L (0-35); AST (SGOT) 23 U/L (14-36); Albumin 4.5 g/dl (3.5-5.0); Alkaline Phosphatase 137 U/L (38-126); Blood Urea Nitrogen 12 mg/dl (7-17); Calcium 9.6 mg/dl (8.4-10.2); Carbon Dioxide 23 mmol/L (22-30); Chloride 98 mmol/L (98-107); Glucose 84 mg/dl (70-99); Potassium 4.9 mmol/L (3.5-5.1); Sodium 130 mmol/L (135-145); Total Bilirubin 0.2 mg/dl (0.2-1.3); Total Protein 6.6 g/dl (6.3-8.2); eGFR > 60.00
== END ==
LOC: REG 10:19
PROVIDERS: ATTENDING PHYSICIAN Internal Medicine Hematology & Oncology; FAMILY PHYSICIAN Family Medicine
DX: C56.9 Malignant neoplasm of unspecified ovary (principal); Z80.3 Family history of malignant neoplasm of breast; Z80.0 Family history of malignant neoplasm of digestive organs; R18.0 Malignant ascites; J91.0 Malignant pleural effusion; G89.3 Neoplasm related pain (acute) (chronic); D75.839 Thrombocytosis, unspecified; Z72.0 Tobacco use; E46 Unspecified protein-calorie malnutrition; R10.2 Pelvic and perineal pain
CPT/HCPCS: 36415; 80053; 85025

== ENCOUNTER → 2024-03-20 09:08 | Outpatient (REF) | payer OTHER, SELFPAY ==
[2024-03-20 10:08] LABS: % Basophils 0.1 % (0-2); % Eosinophils 0.1 % (0-6); % Lymphocytes 17.8 % (20.5-51.1); % Monocytes 9.1 % (1.7-9.3); % Neutrophils 70.9 % (42.2-75.2); Absolute Immature Granulocytes 0.2 10^3/uL (0-0.05); Absolute Lymphocytes 1.6 10^3/uL (1.2-3.4); Absolute Monocytes 0.8 10^3/uL (0.1-0.6); Absolute Neutrophils 6.3 10^3/uL (1.4-6.5); Hemoglobin 10.5 g/dL (12.0-16.0); Mean Corp Hgb Conc. 36.2 g/dL (33.0-37.0); Mean Corpuscular Hgb 35.4 pg (27.0-31.0); Mean Corpuscular Volume 97.6 fL (81.0-99.0); Mean Platelet Volume 9.4 fL (7.4-10.4); Nucleated Red Blood Cells % 0 %; Platelet Count 224 10^3/uL (130-400); Red Blood Cell Count 2.97 10^6/uL (4.20-5.40); Red Cell Dist. Width 20.2 % (11.5-14.5); White Blood Cell Count 8.9 10^3/uL (4.8-10.8)
[2024-03-20 10:37] LABS: ALT (SGPT) 17 U/L (0-35); AST (SGOT) 21 U/L (14-36); Albumin 4.6 g/dl (3.5-5.0); Alkaline Phosphatase 141 U/L (38-126); Blood Urea Nitrogen 15 mg/dl (7-17); Calcium 9.3 mg/dl (8.4-10.2); Carbon Dioxide 21 mmol/L (22-30); Chloride 95 mmol/L (98-107); Glucose 94 mg/dl (70-99); Potassium 4.6 mmol/L (3.5-5.1); Sodium 127 mmol/L (135-145); Total Bilirubin 0.5 mg/dl (0.2-1.3); Total Protein 6.6 g/dl (6.3-8.2); eGFR > 60.00
== END ==
LOC: REG 09:08
PROVIDERS: ATTENDING PHYSICIAN Internal Medicine Hematology & Oncology; FAMILY PHYSICIAN Nurse Practitioner Family
DX: Z09 Encounter for follow-up examination after completed treatment for conditions other than malignant neoplasm (principal); Z85.43 Personal history of malignant neoplasm of ovary; E87.1 Hypo-osmolality and hyponatremia; D64.9 Anemia, unspecified; C56.9 Malignant neoplasm of unspecified ovary; Z80.3 Family history of malignant neoplasm of breast; R18.0 Malignant ascites; J91.0 Malignant pleural effusion; G89.3 Neoplasm related pain (acute) (chronic); D75.839 Thrombocytosis, unspecified; Z72.0 Tobacco use; E46 Unspecified protein-calorie malnutrition; R10.2 Pelvic and perineal pain
CPT/HCPCS: 36415; 80053; 85025

== ENCOUNTER → 2024-03-22 09:34 | Outpatient (REF) | payer OTHER, SELFPAY ==
[2024-03-22 12:08] LABS: Alkaline Phosphatase, Total 163 U/L (38-126)
[2024-03-22 12:57] LABS: Alk Phos After Heat 96
== END ==
LOC: REG 09:34
PROVIDERS: ATTENDING PHYSICIAN Family Medicine; OTHER PHYSICIAN Internal Medicine Hematology & Oncology; REFERRING PHYSICIAN Student in an Organized Health Care Education/Training Program
DX: R74.8 Abnormal levels of other serum enzymes (principal)
CPT/HCPCS: 36415; 84078

== ENCOUNTER → 2024-03-27 11:04 | Outpatient (REF) | payer OTHER, SELFPAY ==
[2024-03-27 12:36] LABS: Blood Urea Nitrogen 13 mg/dl (7-17); Calcium 9.4 mg/dl (8.4-10.2); Carbon Dioxide 23 mmol/L (22-30); Chloride 101 mmol/L (98-107); Glucose 93 mg/dl (70-99); Potassium 4.8 mmol/L (3.5-5.1); Sodium 132 mmol/L (135-145); eGFR > 60.00
[2024-03-27 12:42] LABS: % Basophils 0.4 % (0-2); % Eosinophils 0.9 % (0-6); % Immature Granulocytes 0.4 % (0-0.5); % Lymphocytes 29.5 % (20.5-51.1); % Monocytes 8.7 % (1.7-9.3); % Neutrophils 60.1 % (42.2-75.2); Absolute Eosinophils 0.1 10^3/uL (0-0.7); Absolute Lymphocytes 2.2 10^3/uL (1.2-3.4); Absolute Monocytes 0.7 10^3/uL (0.1-0.6); Absolute Neutrophils 4.6 10^3/uL (1.4-6.5); Hemoglobin 10.7 g/dL (12.0-16.0); Mean Corp Hgb Conc. 35.7 g/dL (33.0-37.0); Mean Corpuscular Hgb 36.3 pg (27.0-31.0); Mean Corpuscular Volume 101.7 fL (81.0-99.0); Mean Platelet Volume 8.9 fL (7.4-10.4); Nucleated Red Blood Cells % 0 %; Platelet Count 279 10^3/uL (130-400); Red Blood Cell Count 2.95 10^6/uL (4.20-5.40); Red Cell Dist. Width 21.2 % (11.5-14.5); White Blood Cell Count 7.6 10^3/uL (4.8-10.8)
== END ==
LOC: REG 11:04
PROVIDERS: ATTENDING PHYSICIAN Internal Medicine Hematology & Oncology; FAMILY PHYSICIAN Family Medicine; REFERRING PHYSICIAN Student in an Organized Health Care Education/Training Program
DX: C56.9 Malignant neoplasm of unspecified ovary (principal); Z80.3 Family history of malignant neoplasm of breast; Z80.0 Family history of malignant neoplasm of digestive organs; R18.0 Malignant ascites; J91.0 Malignant pleural effusion; G89.3 Neoplasm related pain (acute) (chronic); D75.839 Thrombocytosis, unspecified; Z72.0 Tobacco use; E46 Unspecified protein-calorie malnutrition; R10.2 Pelvic and perineal pain
CPT/HCPCS: 36415; 80048; 85025; 86850; 86900; 86901

== ENCOUNTER → 2024-04-03 11:04 | Outpatient (REF) | payer OTHER, SELFPAY ==
[2024-04-03 11:57] LABS: % Basophils 0.2 % (0-2); % Eosinophils 1.3 % (0-6); % Immature Granulocytes 0.5 % (0-0.5); % Lymphocytes 24.7 % (20.5-51.1); % Monocytes 7.1 % (1.7-9.3); % Neutrophils 66.2 % (42.2-75.2); Absolute Eosinophils 0.1 10^3/uL (0-0.7); Absolute Monocytes 0.6 10^3/uL (0.1-0.6); Absolute Neutrophils 5.4 10^3/uL (1.4-6.5); Hemoglobin 11.3 g/dL (12.0-16.0); Mean Corp Hgb Conc. 36.5 g/dL (33.0-37.0); Mean Corpuscular Volume 101.6 fL (81.0-99.0); Mean Platelet Volume 9.2 fL (7.4-10.4); Nucleated Red Blood Cells % 0 %; Platelet Count 259 10^3/uL (130-400); Red Blood Cell Count 3.05 10^6/uL (4.20-5.40); Red Cell Dist. Width 21.2 % (11.5-14.5); White Blood Cell Count 8.2 10^3/uL (4.8-10.8)
[2024-04-03 12:07] LABS: Osmolality Urine 264 mOsm/kg (300-900)
[2024-04-03 12:24] LABS: Blood Urea Nitrogen 14 mg/dl (7-17); Calcium 9.6 mg/dl (8.4-10.2); Carbon Dioxide 22 mmol/L (22-30); Chloride 97 mmol/L (98-107); Glucose 143 mg/dl (70-99); Potassium 4.9 mmol/L (3.5-5.1); Sodium 126 mmol/L (135-145); eGFR > 60.00
[2024-04-03 12:30] LABS: Urine Sodium 40 mmol/L (30-90)
[2024-04-03 16:29] LABS: Osmolality Serum 269 mOsm/kg (275-300)
== END ==
LOC: REG 11:04
PROVIDERS: ATTENDING PHYSICIAN Internal Medicine Hematology & Oncology; FAMILY PHYSICIAN Family Medicine; REFERRING PHYSICIAN Student in an Organized Health Care Education/Training Program
DX: C56.9 Malignant neoplasm of unspecified ovary (principal); Z80.3 Family history of malignant neoplasm of breast; Z80.0 Family history of malignant neoplasm of digestive organs; R18.0 Malignant ascites; J91.0 Malignant pleural effusion; G89.3 Neoplasm related pain (acute) (chronic); D75.839 Thrombocytosis, unspecified; Z72.0 Tobacco use; E46 Unspecified protein-calorie malnutrition; R10.2 Pelvic and perineal pain; E87.1 Hypo-osmolality and hyponatremia
CPT/HCPCS: 36415; 80048; 83930; 83935; 84300; 85025; 86850; 86900; 86901

== ENCOUNTER → 2024-04-10 11:29 | Outpatient (REF) | payer OTHER, SELFPAY ==
[2024-04-10 14:01] LABS: % Basophils 0.4 % (0-2); % Eosinophils 2.2 % (0-6); % Immature Granulocytes 0.3 % (0-0.5); % Lymphocytes 24.6 % (20.5-51.1); % Monocytes 6.5 % (1.7-9.3); Absolute Eosinophils 0.2 10^3/uL (0-0.7); Absolute Lymphocytes 1.9 10^3/uL (1.2-3.4); Absolute Monocytes 0.5 10^3/uL (0.1-0.6); Absolute Neutrophils 5.2 10^3/uL (1.4-6.5); Hematocrit 32.8 % (37.0-47.0); Hemoglobin 11.7 g/dL (12.0-16.0); Mean Corp Hgb Conc. 35.7 g/dL (33.0-37.0); Mean Corpuscular Hgb 37.9 pg (27.0-31.0); Mean Corpuscular Volume 106.1 fL (81.0-99.0); Mean Platelet Volume 9.4 fL (7.4-10.4); Nucleated Red Blood Cells % 0 %; Platelet Count 245 10^3/uL (130-400); Red Blood Cell Count 3.09 10^6/uL (4.20-5.40); Red Cell Dist. Width 20.3 % (11.5-14.5); White Blood Cell Count 7.8 10^3/uL (4.8-10.8)
[2024-04-10 14:37] LABS: Blood Urea Nitrogen 8 mg/dl (7-17); Calcium 9.7 mg/dl (8.4-10.2); Carbon Dioxide 22 mmol/L (22-30); Chloride 100 mmol/L (98-107); Glucose 84 mg/dl (70-99); Potassium 4.5 mmol/L (3.5-5.1); Sodium 131 mmol/L (135-145); eGFR > 60.00
== END ==
LOC: REG 11:29
PROVIDERS: ATTENDING PHYSICIAN Internal Medicine Hematology & Oncology; FAMILY PHYSICIAN Family Medicine; REFERRING PHYSICIAN Student in an Organized Health Care Education/Training Program
DX: C56.9 Malignant neoplasm of unspecified ovary (principal); Z80.3 Family history of malignant neoplasm of breast; Z80.0 Family history of malignant neoplasm of digestive organs; R18.0 Malignant ascites; J91.0 Malignant pleural effusion; G89.3 Neoplasm related pain (acute) (chronic); D75.839 Thrombocytosis, unspecified; Z72.0 Tobacco use; E46 Unspecified protein-calorie malnutrition; R10.2 Pelvic and perineal pain
CPT/HCPCS: 36415; 80048; 85025; 86850; 86900; 86901

== ENCOUNTER → 2024-04-15 19:28 | Outpatient (REF) | payer OTHER, SELFPAY | LOC: MRI 19:28 | PROVIDERS: ATTENDING PHYSICIAN Internal Medicine Hematology & Oncology; FAMILY PHYSICIAN Nurse Practitioner Family | DX: C56.9 Malignant neoplasm of unspecified ovary (principal); Z80.3 Family history of malignant neoplasm of breast; Z80.0 Family history of malignant neoplasm of digestive organs; R18.0 Malignant ascites; J91.0 Malignant pleural effusion; G89.3 Neoplasm related pain (acute) (chronic); D75.839 Thrombocytosis, unspecified; Z72.0 Tobacco use; E46 Unspecified protein-calorie malnutrition; R10.2 Pelvic and perineal pain | CPT/HCPCS: 70553 ==

== ENCOUNTER → 2024-04-17 11:07 | Outpatient (REF) | payer OTHER, SELFPAY ==
[2024-04-17 12:19] LABS: % Basophils 0.4 % (0-2); % Eosinophils 1.9 % (0-6); % Immature Granulocytes 0.4 % (0-0.5); % Lymphocytes 21.8 % (20.5-51.1); % Monocytes 6.4 % (1.7-9.3); % Neutrophils 69.1 % (42.2-75.2); Absolute Basophils 0.1 10^3/uL (0-0.2); Absolute Eosinophils 0.2 10^3/uL (0-0.7); Absolute Immature Granulocytes 0.1 10^3/uL (0-0.05); Absolute Lymphocytes 2.5 10^3/uL (1.2-3.4); Absolute Monocytes 0.7 10^3/uL (0.1-0.6); Hemoglobin 12.3 g/dL (12.0-16.0); Mean Corp Hgb Conc. 36.2 g/dL (33.0-37.0); Mean Corpuscular Hgb 38.7 pg (27.0-31.0); Mean Corpuscular Volume 106.9 fL (81.0-99.0); Mean Platelet Volume 9.4 fL (7.4-10.4); Nucleated Red Blood Cells % 0 %; Platelet Count 253 10^3/uL (130-400); Red Blood Cell Count 3.18 10^6/uL (4.20-5.40); Red Cell Dist. Width 18.9 % (11.5-14.5); White Blood Cell Count 11.5 10^3/uL (4.8-10.8)
[2024-04-17 12:55] LABS: Blood Urea Nitrogen 13 mg/dl (7-17); Carbon Dioxide 23 mmol/L (22-30); Chloride 98 mmol/L (98-107); Glucose 83 mg/dl (70-99); Sodium 130 mmol/L (135-145); eGFR > 60.00
[2024-04-17 13:01] LABS: Potassium 4.5 mmol/L (3.5-5.1)
== END ==
LOC: REG 11:07
PROVIDERS: ATTENDING PHYSICIAN Internal Medicine Hematology & Oncology; FAMILY PHYSICIAN Family Medicine
DX: C56.9 Malignant neoplasm of unspecified ovary (principal); Z80.3 Family history of malignant neoplasm of breast; Z80.0 Family history of malignant neoplasm of digestive organs; R18.0 Malignant ascites; J91.0 Malignant pleural effusion; G89.3 Neoplasm related pain (acute) (chronic); D75.839 Thrombocytosis, unspecified; Z72.0 Tobacco use; E46 Unspecified protein-calorie malnutrition; R10.2 Pelvic and perineal pain
CPT/HCPCS: 36415; 80048; 85025

== ENCOUNTER → 2024-04-18 10:02 | Outpatient (REF) | payer OTHER, SELFPAY ==
[2024-04-18 11:46] LABS: Blood Urea Nitrogen 14 mg/dl (7-17); Calcium 9.7 mg/dl (8.4-10.2); Carbon Dioxide 22 mmol/L (22-30); Chloride 100 mmol/L (98-107); Glucose 82 mg/dl (70-99); Potassium 4.8 mmol/L (3.5-5.1); Sodium 129 mmol/L (135-145); eGFR > 60.00
[2024-04-18 12:05] LABS: Osmolality Urine 340 mOsm/kg (300-900)
[2024-04-18 12:15] LABS: Urine Sodium 50 mmol/L (30-90)
== END ==
LOC: REG 10:02
PROVIDERS: ATTENDING PHYSICIAN Student in an Organized Health Care Education/Training Program; FAMILY PHYSICIAN Family Medicine
DX: I10 Essential (primary) hypertension (principal); D72.829 Elevated white blood cell count, unspecified; E87.1 Hypo-osmolality and hyponatremia; R19.00 Intra-abdominal and pelvic swelling, mass and lump, unspecified site
CPT/HCPCS: 36415; 80048; 83935; 84300

== ENCOUNTER 2024-04-23 11:57 | Outpatient (RCR) | payer OTHER, SELFPAY ==
[2024-04-23 12:03] LABS: % Basophils 0.2 % (0-2); % Eosinophils 2.1 % (0-6); % Immature Granulocytes 0.2 % (0-0.5); % Lymphocytes 18.4 % (20.5-51.1); % Monocytes 6.3 % (1.7-9.3); % Neutrophils 72.8 % (42.2-75.2); Absolute Eosinophils 0.2 10^3/uL (0-0.7); Absolute Lymphocytes 1.7 10^3/uL (1.2-3.4); Absolute Monocytes 0.6 10^3/uL (0.1-0.6); Absolute Neutrophils 6.8 10^3/uL (1.4-6.5); Hematocrit 34.6 % (37.0-47.0); Hemoglobin 12.1 g/dL (12.0-16.0); Mean Corpuscular Hgb 37.9 pg (27.0-31.0); Mean Corpuscular Volume 108.5 fL (81.0-99.0); Mean Platelet Volume 8.7 fL (7.4-10.4); Platelet Count 243 10^3/uL (130-400); Red Blood Cell Count 3.19 10^6/uL (4.20-5.40); Red Cell Dist. Width 17.6 % (11.5-14.5); White Blood Cell Count 9.4 10^3/uL (4.8-10.8)
[2024-04-23 16:05] LABS: Blood Urea Nitrogen 13 mg/dl (7-17); Calcium 9.6 mg/dl (8.4-10.2); Carbon Dioxide 23 mmol/L (22-30); Chloride 96 mmol/L (98-107); Glucose 87 mg/dl (70-99); Potassium 4.7 mmol/L (3.5-5.1); Sodium 127 mmol/L (135-145); eGFR > 60.00
== END 2024-05-04 23:59 | disposition home or self-care (01) ==
LOC: OID 11:57
PROVIDERS: ATTENDING PHYSICIAN Internal Medicine Hematology & Oncology; FAMILY PHYSICIAN Family Medicine
DX: C56.9 Malignant neoplasm of unspecified ovary (principal); R18.0 Malignant ascites; J91.0 Malignant pleural effusion; G89.3 Neoplasm related pain (acute) (chronic); D75.839 Thrombocytosis, unspecified
CPT/HCPCS: 80048; 85025; 86850; 86900; 86901

== ENCOUNTER → 2024-05-01 09:10 | Outpatient (REF) | payer OTHER, SELFPAY ==
[2024-05-01 10:01] LABS: % Basophils 0.6 % (0-2); % Eosinophils 2.1 % (0-6); % Immature Granulocytes 0.5 % (0-0.5); % Lymphocytes 24.9 % (20.5-51.1); % Monocytes 7.4 % (1.7-9.3); % Neutrophils 64.5 % (42.2-75.2); Absolute Basophils 0.1 10^3/uL (0-0.2); Absolute Eosinophils 0.2 10^3/uL (0-0.7); Absolute Lymphocytes 2.1 10^3/uL (1.2-3.4); Absolute Monocytes 0.6 10^3/uL (0.1-0.6); Absolute Neutrophils 5.5 10^3/uL (1.4-6.5); Hematocrit 32.1 % (37.0-47.0); Hemoglobin 11.4 g/dL (12.0-16.0); Mean Corp Hgb Conc. 35.5 g/dL (33.0-37.0); Mean Corpuscular Hgb 37.9 pg (27.0-31.0); Mean Corpuscular Volume 106.6 fL (81.0-99.0); Mean Platelet Volume 9.1 fL (7.4-10.4); Nucleated Red Blood Cells % 0 %; Platelet Count 249 10^3/uL (130-400); Red Blood Cell Count 3.01 10^6/uL (4.20-5.40); Red Cell Dist. Width 16.3 % (11.5-14.5); White Blood Cell Count 8.5 10^3/uL (4.8-10.8)
[2024-05-01 11:02] LABS: Blood Urea Nitrogen 12 mg/dl (7-17); Calcium 9.7 mg/dl (8.4-10.2); Carbon Dioxide 26 mmol/L (22-30); Chloride 98 mmol/L (98-107); Glucose 91 mg/dl (70-99); Potassium 4.9 mmol/L (3.5-5.1); Sodium 134 mmol/L (135-145); eGFR > 60.00
== END ==
LOC: REG 09:10
PROVIDERS: ATTENDING PHYSICIAN Internal Medicine Hematology & Oncology; FAMILY PHYSICIAN Family Medicine; REFERRING PHYSICIAN Student in an Organized Health Care Education/Training Program
DX: C56.9 Malignant neoplasm of unspecified ovary (principal); Z80.3 Family history of malignant neoplasm of breast; R18.0 Malignant ascites; J91.0 Malignant pleural effusion; G89.3 Neoplasm related pain (acute) (chronic); D75.839 Thrombocytosis, unspecified; Z72.0 Tobacco use; E46 Unspecified protein-calorie malnutrition; R10.2 Pelvic and perineal pain; Z80.0 Family history of malignant neoplasm of digestive organs
CPT/HCPCS: 36415; 80048; 85025

== ENCOUNTER → 2024-05-08 08:45 | Outpatient (REF) | payer OTHER, SELFPAY ==
[2024-05-08 09:55] LABS: % Basophils 0.7 % (0-2); % Eosinophils 1.5 % (0-6); % Immature Granulocytes 0.5 % (0-0.5); % Lymphocytes 29.9 % (20.5-51.1); % Monocytes 4.7 % (1.7-9.3); % Neutrophils 62.7 % (42.2-75.2); Absolute Eosinophils 0.1 10^3/uL (0-0.7); Absolute Lymphocytes 1.8 10^3/uL (1.2-3.4); Absolute Monocytes 0.3 10^3/uL (0.1-0.6); Absolute Neutrophils 3.8 10^3/uL (1.4-6.5); Hematocrit 30.2 % (37.0-47.0); Hemoglobin 10.6 g/dL (12.0-16.0); Mean Corp Hgb Conc. 35.1 g/dL (33.0-37.0); Mean Corpuscular Hgb 38.4 pg (27.0-31.0); Mean Corpuscular Volume 109.4 fL (81.0-99.0); Mean Platelet Volume 9.5 fL (7.4-10.4); Nucleated Red Blood Cells % 0 %; Platelet Count 188 10^3/uL (130-400); Red Blood Cell Count 2.76 10^6/uL (4.20-5.40); Red Cell Dist. Width 14.7 % (11.5-14.5)
[2024-05-08 11:58] LABS: ALT (SGPT) 39 U/L (0-35); AST (SGOT) 49 U/L (14-36); Albumin 4.5 g/dl (3.5-5.0); Alkaline Phosphatase 174 U/L (38-126); Blood Urea Nitrogen 20 mg/dl (7-17); Calcium 9.6 mg/dl (8.4-10.2); Carbon Dioxide 19 mmol/L (22-30); Chloride 102 mmol/L (98-107); Glucose 93 mg/dl (70-99); Potassium 5.4 mmol/L (3.5-5.1); Sodium 135 mmol/L (135-145); Total Bilirubin 0.2 mg/dl (0.2-1.3); Total Protein 6.6 g/dl (6.3-8.2); eGFR > 60.00
== END ==
LOC: REG 08:45
PROVIDERS: ATTENDING PHYSICIAN Student in an Organized Health Care Education/Training Program; FAMILY PHYSICIAN Internal Medicine Hematology & Oncology
DX: C56.9 Malignant neoplasm of unspecified ovary (principal); Z80.3 Family history of malignant neoplasm of breast; Z80.0 Family history of malignant neoplasm of digestive organs; R18.0 Malignant ascites; J91.0 Malignant pleural effusion; G89.3 Neoplasm related pain (acute) (chronic); D75.839 Thrombocytosis, unspecified; Z72.0 Tobacco use; E46 Unspecified protein-calorie malnutrition; R10.2 Pelvic and perineal pain; I10 Essential (primary) hypertension; E87.1 Hypo-osmolality and hyponatremia; R19.00 Intra-abdominal and pelvic swelling, mass and lump, unspecified site; D64.9 Anemia, unspecified
CPT/HCPCS: 36415; 80053; 85025

== ENCOUNTER → 2024-05-15 09:59 | Outpatient (REF) | payer OTHER, SELFPAY ==
[2024-05-15 11:36] LABS: % Basophils 0.2 % (0-2); % Eosinophils 0.5 % (0-6); % Immature Granulocytes 0.2 % (0-0.5); % Lymphocytes 34.2 % (20.5-51.1); % Monocytes 7.4 % (1.7-9.3); % Neutrophils 57.5 % (42.2-75.2); Absolute Lymphocytes 1.4 10^3/uL (1.2-3.4); Absolute Monocytes 0.3 10^3/uL (0.1-0.6); Absolute Neutrophils 2.4 10^3/uL (1.4-6.5); Hematocrit 30.3 % (37.0-47.0); Mean Corp Hgb Conc. 36.3 g/dL (33.0-37.0); Mean Corpuscular Hgb 39.6 pg (27.0-31.0); Mean Platelet Volume 10.1 fL (7.4-10.4); Nucleated Red Blood Cells % 0 %; Platelet Count 146 10^3/uL (130-400); Red Blood Cell Count 2.78 10^6/uL (4.20-5.40); White Blood Cell Count 4.2 10^3/uL (4.8-10.8)
[2024-05-15 11:52] LABS: ALT (SGPT) 31 U/L (0-35); AST (SGOT) 36 U/L (14-36); Albumin 4.5 g/dl (3.5-5.0); Alkaline Phosphatase 161 U/L (38-126); Blood Urea Nitrogen 11 mg/dl (7-17); Calcium 9.7 mg/dl (8.4-10.2); Carbon Dioxide 24 mmol/L (22-30); Chloride 98 mmol/L (98-107); Glucose 94 mg/dl (70-99); Potassium 4.7 mmol/L (3.5-5.1); Sodium 133 mmol/L (135-145); Total Bilirubin 0.3 mg/dl (0.2-1.3); Total Protein 6.7 g/dl (6.3-8.2); eGFR > 60.00
== END ==
LOC: REG 09:59
PROVIDERS: ATTENDING PHYSICIAN Internal Medicine Hematology & Oncology; FAMILY PHYSICIAN Family Medicine
DX: C56.9 Malignant neoplasm of unspecified ovary (principal); Z80.3 Family history of malignant neoplasm of breast; Z80.0 Family history of malignant neoplasm of digestive organs; R18.0 Malignant ascites; J91.0 Malignant pleural effusion; G89.3 Neoplasm related pain (acute) (chronic); D75.839 Thrombocytosis, unspecified; Z72.0 Tobacco use; E46 Unspecified protein-calorie malnutrition; R10.2 Pelvic and perineal pain
CPT/HCPCS: 36415; 80053; 85025

== ENCOUNTER → 2024-05-24 12:44 | Outpatient (REF) | payer OTHER, SELFPAY ==
[2024-05-24 15:02] LABS: ALT (SGPT) 28 U/L (0-35); AST (SGOT) 30 U/L (14-36); Albumin 4.3 g/dl (3.5-5.0); Alkaline Phosphatase 163 U/L (38-126); Blood Urea Nitrogen 13 mg/dl (7-17); Calcium 9.2 mg/dl (8.4-10.2); Carbon Dioxide 26 mmol/L (22-30); Chloride 102 mmol/L (98-107); Glucose 100 mg/dl (70-99); Potassium 4.2 mmol/L (3.5-5.1); Sodium 137 mmol/L (135-145); Total Bilirubin 0.3 mg/dl (0.2-1.3); Total Protein 6.4 g/dl (6.3-8.2); eGFR > 60.00
[2024-05-24 15:15] LABS: % Eosinophils 0.4 % (0-6); % Immature Granulocytes 0.4 % (0-0.5); % Lymphocytes 43.8 % (20.5-51.1); % Monocytes 8.5 % (1.7-9.3); % Neutrophils 46.9 % (42.2-75.2); Absolute Lymphocytes 2.1 10^3/uL (1.2-3.4); Absolute Monocytes 0.4 10^3/uL (0.1-0.6); Absolute Neutrophils 2.2 10^3/uL (1.4-6.5); Hematocrit 28.5 % (37.0-47.0); Hemoglobin 10.1 g/dL (12.0-16.0); Mean Corp Hgb Conc. 35.4 g/dL (33.0-37.0); Nucleated Red Blood Cells % 0 %; Platelet Count 85 10^3/uL (130-400); Red Blood Cell Count 2.59 10^6/uL (4.20-5.40); Red Cell Dist. Width 14.2 % (11.5-14.5); White Blood Cell Count 4.7 10^3/uL (4.8-10.8)
== END ==
LOC: REG 12:44
PROVIDERS: ATTENDING PHYSICIAN Internal Medicine Hematology & Oncology; FAMILY PHYSICIAN Family Medicine
DX: C56.9 Malignant neoplasm of unspecified ovary (principal); Z80.3 Family history of malignant neoplasm of breast; Z80.0 Family history of malignant neoplasm of digestive organs; R18.0 Malignant ascites; J91.0 Malignant pleural effusion; G89.3 Neoplasm related pain (acute) (chronic); D75.839 Thrombocytosis, unspecified; Z72.0 Tobacco use; E46 Unspecified protein-calorie malnutrition; R10.2 Pelvic and perineal pain
CPT/HCPCS: 36415; 80053; 85025

== ENCOUNTER → 2024-05-30 12:10 | Outpatient (REF) | payer OTHER, SELFPAY ==
[2024-05-30 13:49] LABS: % Basophils 0.2 % (0-2); % Eosinophils 0.9 % (0-6); % Immature Granulocytes 0.5 % (0-0.5); % Lymphocytes 36.4 % (20.5-51.1); Absolute Eosinophils 0.1 10^3/uL (0-0.7); Absolute Lymphocytes 2.4 10^3/uL (1.2-3.4); Absolute Monocytes 0.5 10^3/uL (0.1-0.6); Absolute Neutrophils 3.6 10^3/uL (1.4-6.5); Hematocrit 30.9 % (37.0-47.0); Hemoglobin 10.8 g/dL (12.0-16.0); Mean Corpuscular Hgb 37.9 pg (27.0-31.0); Mean Corpuscular Volume 108.4 fL (81.0-99.0); Mean Platelet Volume 10.4 fL (7.4-10.4); Nucleated Red Blood Cells % 0 %; Platelet Count 93 10^3/uL (130-400); Red Blood Cell Count 2.85 10^6/uL (4.20-5.40); White Blood Cell Count 6.6 10^3/uL (4.8-10.8)
[2024-05-30 13:50] LABS: ALT (SGPT) 21 U/L (0-35); AST (SGOT) 24 U/L (14-36); Albumin 4.8 g/dl (3.5-5.0); Alkaline Phosphatase 153 U/L (38-126); Blood Urea Nitrogen 16 mg/dl (7-17); Calcium 9.8 mg/dl (8.4-10.2); Carbon Dioxide 22 mmol/L (22-30); Chloride 101 mmol/L (98-107); Glucose 118 mg/dl (70-99); Potassium 4.7 mmol/L (3.5-5.1); Sodium 137 mmol/L (135-145); Total Bilirubin 0.2 mg/dl (0.2-1.3); Total Protein 6.9 g/dl (6.3-8.2); eGFR > 60.00
== END ==
LOC: REG 12:10
PROVIDERS: ATTENDING PHYSICIAN Internal Medicine Hematology & Oncology; FAMILY PHYSICIAN Family Medicine
DX: C56.9 Malignant neoplasm of unspecified ovary (principal); Z80.3 Family history of malignant neoplasm of breast; Z80.0 Family history of malignant neoplasm of digestive organs; R18.0 Malignant ascites; J91.0 Malignant pleural effusion; G89.3 Neoplasm related pain (acute) (chronic); D75.839 Thrombocytosis, unspecified; Z72.0 Tobacco use; E46 Unspecified protein-calorie malnutrition; R10.2 Pelvic and perineal pain
CPT/HCPCS: 36415; 80053; 85025

== ENCOUNTER → 2024-06-05 12:09 | Outpatient (REF) | payer OTHER, SELFPAY ==
[2024-06-05 13:07] LABS: % Basophils 0.2 % (0-2); % Eosinophils 0.6 % (0-6); % Immature Granulocytes 0.3 % (0-0.5); % Lymphocytes 28.9 % (20.5-51.1); % Monocytes 9.3 % (1.7-9.3); % Neutrophils 60.7 % (42.2-75.2); Absolute Lymphocytes 1.8 10^3/uL (1.2-3.4); Absolute Monocytes 0.6 10^3/uL (0.1-0.6); Absolute Neutrophils 3.8 10^3/uL (1.4-6.5); Hematocrit 31.6 % (37.0-47.0); Hemoglobin 11.3 g/dL (12.0-16.0); Mean Corp Hgb Conc. 35.8 g/dL (33.0-37.0); Mean Platelet Volume 10.1 fL (7.4-10.4); Nucleated Red Blood Cells % 0 %; Platelet Count 163 10^3/uL (130-400); Red Cell Dist. Width 14.9 % (11.5-14.5); White Blood Cell Count 6.2 10^3/uL (4.8-10.8)
[2024-06-05 13:39] LABS: ALT (SGPT) 20 U/L (0-35); AST (SGOT) 27 U/L (14-36); Albumin 4.7 g/dl (3.5-5.0); Alkaline Phosphatase 167 U/L (38-126); Blood Urea Nitrogen 13 mg/dl (7-17); Calcium 9.6 mg/dl (8.4-10.2); Carbon Dioxide 21 mmol/L (22-30); Chloride 101 mmol/L (98-107); Glucose 92 mg/dl (70-99); Potassium 4.6 mmol/L (3.5-5.1); Sodium 134 mmol/L (135-145); Total Bilirubin 0.4 mg/dl (0.2-1.3); Total Protein 6.8 g/dl (6.3-8.2); eGFR > 60.00
[2024-06-06 20:45] LABS: CA 125 183 U/mL (0-35)
== END ==
LOC: REG 12:09
PROVIDERS: ATTENDING PHYSICIAN Internal Medicine Hematology & Oncology; FAMILY PHYSICIAN Family Medicine; OTHER PHYSICIAN Obstetrics & Gynecology Gynecologic Oncology
DX: C56.9 Malignant neoplasm of unspecified ovary (principal); Z80.3 Family history of malignant neoplasm of breast; Z80.0 Family history of malignant neoplasm of digestive organs; R18.0 Malignant ascites; J91.0 Malignant pleural effusion; G89.3 Neoplasm related pain (acute) (chronic); D75.839 Thrombocytosis, unspecified; Z72.0 Tobacco use; E46 Unspecified protein-calorie malnutrition; R10.2 Pelvic and perineal pain
CPT/HCPCS: 36415; 80053; 85025; 86304

== ENCOUNTER → 2024-06-07 13:36 | Outpatient (REF) | payer OTHER, SELFPAY | LOC: RAD 13:36 | PROVIDERS: ATTENDING PHYSICIAN Obstetrics & Gynecology Gynecologic Oncology; FAMILY PHYSICIAN Nurse Practitioner Family; REFERRING PHYSICIAN Internal Medicine Hematology & Oncology | DX: R10.2 Pelvic and perineal pain (principal); C56.9 Malignant neoplasm of unspecified ovary; Z80.3 Family history of malignant neoplasm of breast; Z80.0 Family history of malignant neoplasm of digestive organs; R18.0 Malignant ascites; J91.0 Malignant pleural effusion; G89.3 Neoplasm related pain (acute) (chronic); D75.839 Thrombocytosis, unspecified; Z72.0 Tobacco use; E46 Unspecified protein-calorie malnutrition | CPT/HCPCS: 71260; 74177; Q9967 ==

== ENCOUNTER → 2024-06-12 13:34 | Outpatient (REF) | payer OTHER, SELFPAY ==
[2024-06-12 14:36] LABS: % Basophils 0.4 % (0-2); % Immature Granulocytes 0.4 % (0-0.5); % Lymphocytes 27.3 % (20.5-51.1); % Monocytes 8.9 % (1.7-9.3); Absolute Eosinophils 0.1 10^3/uL (0-0.7); Absolute Monocytes 0.6 10^3/uL (0.1-0.6); Absolute Neutrophils 4.5 10^3/uL (1.4-6.5); Mean Corp Hgb Conc. 35.5 g/dL (33.0-37.0); Mean Corpuscular Hgb 38.3 pg (27.0-31.0); Mean Platelet Volume 9.3 fL (7.4-10.4); Nucleated Red Blood Cells % 0 %; Platelet Count 200 10^3/uL (130-400); Red Blood Cell Count 2.87 10^6/uL (4.20-5.40); Red Cell Dist. Width 15.7 % (11.5-14.5); White Blood Cell Count 7.2 10^3/uL (4.8-10.8)
[2024-06-12 15:49] LABS: ALT (SGPT) 22 U/L (0-35); AST (SGOT) 25 U/L (14-36); Albumin 4.6 g/dl (3.5-5.0); Alkaline Phosphatase 156 U/L (38-126); Blood Urea Nitrogen 13 mg/dl (7-17); Calcium 9.5 mg/dl (8.4-10.2); Carbon Dioxide 23 mmol/L (22-30); Chloride 103 mmol/L (98-107); Glucose 95 mg/dl (70-99); Iron 82 ug/dl (37-170); Potassium 4.6 mmol/L (3.5-5.1); Sodium 137 mmol/L (135-145); Total Bilirubin < 0.1 mg/dl (0.2-1.3); Total Protein 6.7 g/dl (6.3-8.2); eGFR > 60.00
[2024-06-12 15:58] LABS: Percent Saturation 27 % (20-50); Total Iron Binding Capacity 301 ug/dl (265-497)
[2024-06-12 16:22] LABS: Ferritin 74.4 ng/ml (11.1-264.0)
[2024-06-12 16:53] LABS: Folate > 20.0 ng/ml (2.76-20); Vitamin B12 873 pg/ml (239-931)
== END ==
LOC: REG 13:34
PROVIDERS: ATTENDING PHYSICIAN Internal Medicine Hematology & Oncology; FAMILY PHYSICIAN Nurse Practitioner Family
DX: C56.9 Malignant neoplasm of unspecified ovary (principal); Z80.3 Family history of malignant neoplasm of breast; Z80.0 Family history of malignant neoplasm of digestive organs; R18.0 Malignant ascites; J91.0 Malignant pleural effusion; G89.3 Neoplasm related pain (acute) (chronic); D75.839 Thrombocytosis, unspecified; Z72.0 Tobacco use; E46 Unspecified protein-calorie malnutrition; R10.2 Pelvic and perineal pain; Z12.31 Encounter for screening mammogram for malignant neoplasm of breast; D64.9 Anemia, unspecified
CPT/HCPCS: 36415; 80053; 82607; 82728; 82746; 83540; 83550; 85025

== ENCOUNTER → 2024-06-19 12:29 | Outpatient (REF) | payer OTHER, SELFPAY ==
[2024-06-19 13:31] LABS: % Basophils 0.4 % (0-2); % Eosinophils 1.1 % (0-6); % Immature Granulocytes 0.6 % (0-0.5); % Lymphocytes 30.1 % (20.5-51.1); % Monocytes 8.8 % (1.7-9.3); Absolute Eosinophils 0.1 10^3/uL (0-0.7); Absolute Immature Granulocytes 0.1 10^3/uL (0-0.05); Absolute Lymphocytes 2.5 10^3/uL (1.2-3.4); Absolute Monocytes 0.7 10^3/uL (0.1-0.6); Absolute Neutrophils 4.9 10^3/uL (1.4-6.5); Hematocrit 33.6 % (37.0-47.0); Hemoglobin 11.7 g/dL (12.0-16.0); Mean Corp Hgb Conc. 34.8 g/dL (33.0-37.0); Mean Corpuscular Hgb 37.3 pg (27.0-31.0); Mean Platelet Volume 9.4 fL (7.4-10.4); Nucleated Red Blood Cells % 0 %; Platelet Count 260 10^3/uL (130-400); Red Blood Cell Count 3.14 10^6/uL (4.20-5.40); Red Cell Dist. Width 15.6 % (11.5-14.5); White Blood Cell Count 8.3 10^3/uL (4.8-10.8)
[2024-06-19 14:20] LABS: ALT (SGPT) 23 U/L (0-35); AST (SGOT) 24 U/L (14-36); Albumin 4.8 g/dl (3.5-5.0); Alkaline Phosphatase 137 U/L (38-126); Blood Urea Nitrogen 19 mg/dl (7-17); Calcium 9.9 mg/dl (8.4-10.2); Carbon Dioxide 25 mmol/L (22-30); Chloride 99 mmol/L (98-107); Glucose 90 mg/dl (70-99); Potassium 5.1 mmol/L (3.5-5.1); Sodium 135 mmol/L (135-145); Total Bilirubin 0.1 mg/dl (0.2-1.3); Total Protein 6.9 g/dl (6.3-8.2); eGFR > 60.00
== END ==
LOC: REG 12:29
PROVIDERS: ATTENDING PHYSICIAN Internal Medicine Hematology & Oncology; FAMILY PHYSICIAN Family Medicine
DX: C56.9 Malignant neoplasm of unspecified ovary (principal); Z80.3 Family history of malignant neoplasm of breast; Z80.0 Family history of malignant neoplasm of digestive organs; R18.0 Malignant ascites; J91.0 Malignant pleural effusion; G89.3 Neoplasm related pain (acute) (chronic); D75.839 Thrombocytosis, unspecified; Z72.0 Tobacco use; E46 Unspecified protein-calorie malnutrition; R10.2 Pelvic and perineal pain
CPT/HCPCS: 36415; 80053; 85025

== ENCOUNTER → 2024-06-25 13:41 | Outpatient (REF) | payer OTHER, SELFPAY | LOC: WDC 13:41 | PROVIDERS: ATTENDING PHYSICIAN Nurse Practitioner Family | DX: Z12.31 Encounter for screening mammogram for malignant neoplasm of breast (principal) | CPT/HCPCS: 77063; 77067 ==

== ENCOUNTER → 2024-06-26 12:09 | Outpatient (REF) | payer OTHER, SELFPAY ==
[2024-06-26 12:57] LABS: % Basophils 0.3 % (0-2); % Eosinophils 1.6 % (0-6); % Immature Granulocytes 0.5 % (0-0.5); % Lymphocytes 28.5 % (20.5-51.1); % Monocytes 10.4 % (1.7-9.3); % Neutrophils 58.7 % (42.2-75.2); Absolute Eosinophils 0.1 10^3/uL (0-0.7); Absolute Lymphocytes 2.1 10^3/uL (1.2-3.4); Absolute Monocytes 0.8 10^3/uL (0.1-0.6); Absolute Neutrophils 4.4 10^3/uL (1.4-6.5); Hematocrit 31.7 % (37.0-47.0); Hemoglobin 11.4 g/dL (12.0-16.0); Mean Corpuscular Hgb 40.1 pg (27.0-31.0); Mean Corpuscular Volume 111.6 fL (81.0-99.0); Mean Platelet Volume 9.3 fL (7.4-10.4); Nucleated Red Blood Cells % 0 %; Platelet Count 269 10^3/uL (130-400); Red Blood Cell Count 2.84 10^6/uL (4.20-5.40); White Blood Cell Count 7.5 10^3/uL (4.8-10.8)
[2024-06-26 13:29] LABS: ALT (SGPT) 21 U/L (0-35); AST (SGOT) 27 U/L (14-36); Albumin 4.3 g/dl (3.5-5.0); Alkaline Phosphatase 136 U/L (38-126); Blood Urea Nitrogen 18 mg/dl (7-17); Calcium 9.2 mg/dl (8.4-10.2); Carbon Dioxide 21 mmol/L (22-30); Chloride 106 mmol/L (98-107); Glucose 104 mg/dl (70-99); Potassium 4.8 mmol/L (3.5-5.1); Sodium 136 mmol/L (135-145); Total Bilirubin 0.2 mg/dl (0.2-1.3); Total Protein 6.3 g/dl (6.3-8.2); eGFR > 60.00
== END ==
LOC: REG 12:09
PROVIDERS: ATTENDING PHYSICIAN Internal Medicine Hematology & Oncology; FAMILY PHYSICIAN Nurse Practitioner Family
DX: C56.9 Malignant neoplasm of unspecified ovary (principal); Z80.3 Family history of malignant neoplasm of breast; Z80.0 Family history of malignant neoplasm of digestive organs; R18.0 Malignant ascites; J91.0 Malignant pleural effusion; G89.3 Neoplasm related pain (acute) (chronic); D75.839 Thrombocytosis, unspecified; Z72.0 Tobacco use; E46 Unspecified protein-calorie malnutrition; R10.2 Pelvic and perineal pain
CPT/HCPCS: 36415; 80053; 85025

== ENCOUNTER → 2024-07-04 09:47 | Outpatient (REF) | payer OTHER, SELFPAY ==
[2024-07-04 10:26] LABS: % Basophils 0.4 % (0-2); % Eosinophils 1.9 % (0-6); % Immature Granulocytes 0.4 % (0-0.5); % Lymphocytes 25.2 % (20.5-51.1); % Monocytes 9.8 % (1.7-9.3); % Neutrophils 62.3 % (42.2-75.2); Absolute Eosinophils 0.1 10^3/uL (0-0.7); Absolute Lymphocytes 1.8 10^3/uL (1.2-3.4); Absolute Monocytes 0.7 10^3/uL (0.1-0.6); Absolute Neutrophils 4.5 10^3/uL (1.4-6.5); Hematocrit 33.3 % (37.0-47.0); Hemoglobin 11.9 g/dL (12.0-16.0); Mean Corp Hgb Conc. 35.7 g/dL (33.0-37.0); Mean Corpuscular Hgb 38.9 pg (27.0-31.0); Mean Corpuscular Volume 108.8 fL (81.0-99.0); Mean Platelet Volume 9.1 fL (7.4-10.4); Nucleated Red Blood Cells % 0 %; Platelet Count 226 10^3/uL (130-400); Red Blood Cell Count 3.06 10^6/uL (4.20-5.40); Red Cell Dist. Width 14.2 % (11.5-14.5); White Blood Cell Count 7.2 10^3/uL (4.8-10.8)
[2024-07-04 10:55] LABS: ALT (SGPT) 26 U/L (0-35); AST (SGOT) 32 U/L (14-36); Albumin 4.5 g/dl (3.5-5.0); Alkaline Phosphatase 161 U/L (38-126); Blood Urea Nitrogen 12 mg/dl (7-17); Calcium 9.8 mg/dl (8.4-10.2); Carbon Dioxide 23 mmol/L (22-30); Chloride 97 mmol/L (98-107); Glucose 99 mg/dl (70-99); Potassium 5.1 mmol/L (3.5-5.1); Sodium 131 mmol/L (135-145); Total Bilirubin 0.3 mg/dl (0.2-1.3); Total Protein 6.6 g/dl (6.3-8.2); eGFR > 60.00
== END ==
LOC: REG 09:47
PROVIDERS: ATTENDING PHYSICIAN Specialist; FAMILY PHYSICIAN Internal Medicine Hematology & Oncology
DX: E87.1 Hypo-osmolality and hyponatremia (principal); C56.9 Malignant neoplasm of unspecified ovary; Z80.3 Family history of malignant neoplasm of breast; Z80.0 Family history of malignant neoplasm of digestive organs; R18.0 Malignant ascites; J91.0 Malignant pleural effusion; G89.3 Neoplasm related pain (acute) (chronic); D75.839 Thrombocytosis, unspecified; Z72.0 Tobacco use; E46 Unspecified protein-calorie malnutrition; R10.2 Pelvic and perineal pain
CPT/HCPCS: 36415; 80053; 85025

== ENCOUNTER → 2024-07-09 11:41 | Outpatient (REF) | payer OTHER, SELFPAY ==
[2024-07-09 13:05] LABS: % Basophils 0.3 % (0-2); % Immature Granulocytes 0.4 % (0-0.5); % Lymphocytes 25.8 % (20.5-51.1); % Monocytes 7.9 % (1.7-9.3); % Neutrophils 63.6 % (42.2-75.2); Absolute Eosinophils 0.2 10^3/uL (0-0.7); Absolute Lymphocytes 2.4 10^3/uL (1.2-3.4); Absolute Monocytes 0.7 10^3/uL (0.1-0.6); Absolute Neutrophils 5.8 10^3/uL (1.4-6.5); Hematocrit 33.1 % (37.0-47.0); Mean Corp Hgb Conc. 36.3 g/dL (33.0-37.0); Mean Corpuscular Hgb 39.2 pg (27.0-31.0); Mean Corpuscular Volume 108.2 fL (81.0-99.0); Mean Platelet Volume 9.3 fL (7.4-10.4); Nucleated Red Blood Cells % 0 %; Platelet Count 251 10^3/uL (130-400); Red Blood Cell Count 3.06 10^6/uL (4.20-5.40); Red Cell Dist. Width 13.8 % (11.5-14.5); White Blood Cell Count 9.1 10^3/uL (4.8-10.8)
[2024-07-09 13:31] LABS: ALT (SGPT) 29 U/L (0-35); AST (SGOT) 39 U/L (14-36); Albumin 4.3 g/dl (3.5-5.0); Alkaline Phosphatase 141 U/L (38-126); Blood Urea Nitrogen 11 mg/dl (7-17); Calcium 9.4 mg/dl (8.4-10.2); Carbon Dioxide 23 mmol/L (22-30); Chloride 94 mmol/L (98-107); Glucose 82 mg/dl (70-99); Potassium 5.1 mmol/L (3.5-5.1); Sodium 128 mmol/L (135-145); Total Bilirubin 0.2 mg/dl (0.2-1.3); Total Protein 6.5 g/dl (6.3-8.2); eGFR > 60.00
== END ==
LOC: REG 11:41
PROVIDERS: ATTENDING PHYSICIAN Internal Medicine Hematology & Oncology; FAMILY PHYSICIAN Nurse Practitioner Family
DX: C56.9 Malignant neoplasm of unspecified ovary (principal); Z80.3 Family history of malignant neoplasm of breast; Z80.0 Family history of malignant neoplasm of digestive organs; R18.0 Malignant ascites; J91.0 Malignant pleural effusion; G89.3 Neoplasm related pain (acute) (chronic); D75.839 Thrombocytosis, unspecified; Z72.0 Tobacco use; E46 Unspecified protein-calorie malnutrition; R10.2 Pelvic and perineal pain
CPT/HCPCS: 36415; 80053; 85025

== ENCOUNTER → 2024-07-17 11:57 | Outpatient (REF) | payer OTHER, SELFPAY ==
[2024-07-17 12:31] LABS: % Basophils 0.3 % (0-2); % Eosinophils 1.3 % (0-6); % Immature Granulocytes 0.5 % (0-0.5); % Lymphocytes 16.8 % (20.5-51.1); % Monocytes 8.8 % (1.7-9.3); % Neutrophils 72.3 % (42.2-75.2); Absolute Eosinophils 0.1 10^3/uL (0-0.7); Absolute Immature Granulocytes 0.1 10^3/uL (0-0.05); Absolute Lymphocytes 1.7 10^3/uL (1.2-3.4); Absolute Monocytes 0.9 10^3/uL (0.1-0.6); Absolute Neutrophils 7.5 10^3/uL (1.4-6.5); Hematocrit 33.2 % (37.0-47.0); Hemoglobin 12.2 g/dL (12.0-16.0); Mean Corp Hgb Conc. 36.7 g/dL (33.0-37.0); Mean Corpuscular Hgb 39.4 pg (27.0-31.0); Mean Corpuscular Volume 107.1 fL (81.0-99.0); Mean Platelet Volume 9.3 fL (7.4-10.4); Nucleated Red Blood Cells % 0 %; Platelet Count 244 10^3/uL (130-400); Red Cell Dist. Width 13.4 % (11.5-14.5); White Blood Cell Count 10.3 10^3/uL (4.8-10.8)
[2024-07-17 13:51] LABS: ALT (SGPT) 27 U/L (0-35); AST (SGOT) 32 U/L (14-36); Albumin 4.5 g/dl (3.5-5.0); Alkaline Phosphatase 134 U/L (38-126); Blood Urea Nitrogen 16 mg/dl (7-17); Calcium 9.5 mg/dl (8.4-10.2); Carbon Dioxide 23 mmol/L (22-30); Chloride 96 mmol/L (98-107); Glucose 82 mg/dl (70-99); Potassium 5.1 mmol/L (3.5-5.1); Sodium 131 mmol/L (135-145); Total Bilirubin 0.3 mg/dl (0.2-1.3); Total Protein 6.8 g/dl (6.3-8.2); eGFR > 60.00
== END ==
LOC: REG 11:57
PROVIDERS: ATTENDING PHYSICIAN Internal Medicine Hematology & Oncology; FAMILY PHYSICIAN Nurse Practitioner Family
DX: C56.9 Malignant neoplasm of unspecified ovary (principal); Z80.3 Family history of malignant neoplasm of breast; Z80.0 Family history of malignant neoplasm of digestive organs; R18.0 Malignant ascites; J91.0 Malignant pleural effusion; G89.3 Neoplasm related pain (acute) (chronic); D75.839 Thrombocytosis, unspecified; Z72.0 Tobacco use; E46 Unspecified protein-calorie malnutrition; R10.2 Pelvic and perineal pain
CPT/HCPCS: 36415; 80053; 85025

== ENCOUNTER → 2024-07-18 14:44 | Outpatient (REF) | payer OTHER, SELFPAY ==
[2024-07-18 15:30] LABS: Urine Albumin Negative (Neg - Trace); Urine Bilirubin Negative (Negative); Urine Character Clear (Clear); Urine Color Yellow; Urine Glucose Negative (Negative); Urine Ketone Negative (Negative); Urine Leukocyte Negative (Negative); Urine Nitrite Negative (Negative); Urine Occult Blood Negative (Negative); Urine Urobilinogen Negative (Neg - 1+)
== END ==
LOC: REG 14:44
PROVIDERS: ATTENDING PHYSICIAN Nurse Practitioner Adult Health; FAMILY PHYSICIAN Nurse Practitioner Family
DX: C56.9 Malignant neoplasm of unspecified ovary (principal); Z80.3 Family history of malignant neoplasm of breast; Z80.0 Family history of malignant neoplasm of digestive organs; R18.0 Malignant ascites; J91.0 Malignant pleural effusion; G89.3 Neoplasm related pain (acute) (chronic); D75.839 Thrombocytosis, unspecified; Z72.0 Tobacco use; E46 Unspecified protein-calorie malnutrition; R10.2 Pelvic and perineal pain
CPT/HCPCS: 72100; 81003; 87086

== ENCOUNTER → 2024-07-24 10:37 | Outpatient (REF) | payer OTHER, SELFPAY ==
[2024-07-24 11:33] LABS: % Basophils 0.3 % (0-2); % Eosinophils 1.9 % (0-6); % Immature Granulocytes 0.7 % (0-0.5); % Lymphocytes 19.5 % (20.5-51.1); % Monocytes 7.8 % (1.7-9.3); % Neutrophils 69.8 % (42.2-75.2); Absolute Eosinophils 0.2 10^3/uL (0-0.7); Absolute Immature Granulocytes 0.1 10^3/uL (0-0.05); Absolute Lymphocytes 1.8 10^3/uL (1.2-3.4); Absolute Monocytes 0.7 10^3/uL (0.1-0.6); Absolute Neutrophils 6.4 10^3/uL (1.4-6.5); Hematocrit 33.4 % (37.0-47.0); Hemoglobin 11.8 g/dL (12.0-16.0); Mean Corp Hgb Conc. 35.3 g/dL (33.0-37.0); Mean Corpuscular Hgb 38.4 pg (27.0-31.0); Mean Corpuscular Volume 108.8 fL (81.0-99.0); Mean Platelet Volume 9.2 fL (7.4-10.4); Nucleated Red Blood Cells % 0 %; Platelet Count 269 10^3/uL (130-400); Red Blood Cell Count 3.07 10^6/uL (4.20-5.40); Red Cell Dist. Width 13.4 % (11.5-14.5); White Blood Cell Count 9.1 10^3/uL (4.8-10.8)
[2024-07-24 12:06] LABS: ALT (SGPT) 25 U/L (0-35); AST (SGOT) 27 U/L (14-36); Albumin 4.1 g/dl (3.5-5.0); Alkaline Phosphatase 138 U/L (38-126); Blood Urea Nitrogen 13 mg/dl (7-17); Calcium 9.2 mg/dl (8.4-10.2); Carbon Dioxide 23 mmol/L (22-30); Chloride 101 mmol/L (98-107); Glucose 72 mg/dl (70-99); Potassium 5.2 mmol/L (3.5-5.1); Sodium 134 mmol/L (135-145); Total Bilirubin 0.2 mg/dl (0.2-1.3); Total Protein 6.3 g/dl (6.3-8.2); eGFR > 60.00
== END ==
LOC: REG 10:37
PROVIDERS: ATTENDING PHYSICIAN Internal Medicine Hematology & Oncology; FAMILY PHYSICIAN Nurse Practitioner Family
DX: C56.9 Malignant neoplasm of unspecified ovary (principal); Z80.3 Family history of malignant neoplasm of breast; Z80.0 Family history of malignant neoplasm of digestive organs; R18.0 Malignant ascites; J91.0 Malignant pleural effusion; G89.3 Neoplasm related pain (acute) (chronic); D75.839 Thrombocytosis, unspecified; Z72.0 Tobacco use; E46 Unspecified protein-calorie malnutrition; R10.2 Pelvic and perineal pain
CPT/HCPCS: 36415; 80053; 85025

== ENCOUNTER → 2024-07-30 12:51 | Outpatient (REF) | payer OTHER, SELFPAY ==
[2024-07-30 14:04] LABS: % Basophils 0.4 % (0-2); % Eosinophils 1.8 % (0-6); % Immature Granulocytes 0.6 % (0-0.5); % Lymphocytes 19.9 % (20.5-51.1); % Monocytes 6.6 % (1.7-9.3); % Neutrophils 70.7 % (42.2-75.2); Absolute Eosinophils 0.2 10^3/uL (0-0.7); Absolute Immature Granulocytes 0.1 10^3/uL (0-0.05); Absolute Lymphocytes 1.9 10^3/uL (1.2-3.4); Absolute Monocytes 0.6 10^3/uL (0.1-0.6); Absolute Neutrophils 6.9 10^3/uL (1.4-6.5); Hematocrit 34.7 % (37.0-47.0); Hemoglobin 11.6 g/dL (12.0-16.0); Mean Corp Hgb Conc. 33.4 g/dL (33.0-37.0); Mean Corpuscular Hgb 36.9 pg (27.0-31.0); Mean Corpuscular Volume 110.5 fL (81.0-99.0); Mean Platelet Volume 9.3 fL (7.4-10.4); Nucleated Red Blood Cells % 0 %; Platelet Count 276 10^3/uL (130-400); Red Blood Cell Count 3.14 10^6/uL (4.20-5.40); Red Cell Dist. Width 13.2 % (11.5-14.5); White Blood Cell Count 9.7 10^3/uL (4.8-10.8)
[2024-07-30 14:25] LABS: ALT (SGPT) 26 U/L (0-35); AST (SGOT) 33 U/L (14-36); Albumin 4.4 g/dl (3.5-5.0); Alkaline Phosphatase 167 U/L (38-126); Blood Urea Nitrogen 9 mg/dl (7-17); Calcium 9.3 mg/dl (8.4-10.2); Carbon Dioxide 23 mmol/L (22-30); Chloride 96 mmol/L (98-107); Glucose 86 mg/dl (70-99); Sodium 129 mmol/L (135-145); Total Bilirubin 0.3 mg/dl (0.2-1.3); Total Protein 6.5 g/dl (6.3-8.2); eGFR > 60.00
== END ==
LOC: REG 12:51
PROVIDERS: ATTENDING PHYSICIAN Internal Medicine Hematology & Oncology; FAMILY PHYSICIAN Nurse Practitioner Family
DX: C56.9 Malignant neoplasm of unspecified ovary (principal); Z80.3 Family history of malignant neoplasm of breast; Z80.0 Family history of malignant neoplasm of digestive organs; R18.0 Malignant ascites; J91.0 Malignant pleural effusion; G89.3 Neoplasm related pain (acute) (chronic); D75.839 Thrombocytosis, unspecified; R10.2 Pelvic and perineal pain
CPT/HCPCS: 36415; 80053; 85025

== ENCOUNTER → 2024-08-07 13:29 | Outpatient (REF) | payer OTHER, SELFPAY ==
[2024-08-07 14:19] LABS: % Basophils 0.4 % (0-2); % Eosinophils 2.5 % (0-6); % Immature Granulocytes 0.5 % (0-0.5); % Lymphocytes 23.6 % (20.5-51.1); % Monocytes 7.4 % (1.7-9.3); % Neutrophils 65.6 % (42.2-75.2); Absolute Eosinophils 0.2 10^3/uL (0-0.7); Absolute Monocytes 0.6 10^3/uL (0.1-0.6); Absolute Neutrophils 5.6 10^3/uL (1.4-6.5); Hematocrit 32.7 % (37.0-47.0); Hemoglobin 11.6 g/dL (12.0-16.0); Mean Corp Hgb Conc. 35.5 g/dL (33.0-37.0); Mean Corpuscular Hgb 37.5 pg (27.0-31.0); Mean Corpuscular Volume 105.8 fL (81.0-99.0); Nucleated Red Blood Cells % 0 %; Platelet Count 326 10^3/uL (130-400); Red Blood Cell Count 3.09 10^6/uL (4.20-5.40); Red Cell Dist. Width 13.2 % (11.5-14.5); White Blood Cell Count 8.5 10^3/uL (4.8-10.8)
[2024-08-07 14:41] LABS: ALT (SGPT) 41 U/L (0-35); AST (SGOT) 53 U/L (14-36); Albumin 4.2 g/dl (3.5-5.0); Alkaline Phosphatase 201 U/L (38-126); Blood Urea Nitrogen 14 mg/dl (7-17); Calcium 9.4 mg/dl (8.4-10.2); Carbon Dioxide 26 mmol/L (22-30); Chloride 95 mmol/L (98-107); Glucose 89 mg/dl (70-99); Potassium 5.6 mmol/L (3.5-5.1); Sodium 128 mmol/L (135-145); Total Bilirubin 0.3 mg/dl (0.2-1.3); Total Protein 6.5 g/dl (6.3-8.2); eGFR > 60.00
== END ==
LOC: REG 13:29
PROVIDERS: ATTENDING PHYSICIAN Internal Medicine Hematology & Oncology; FAMILY PHYSICIAN Nurse Practitioner Family
DX: C56.9 Malignant neoplasm of unspecified ovary (principal); Z80.3 Family history of malignant neoplasm of breast; Z80.0 Family history of malignant neoplasm of digestive organs; R18.0 Malignant ascites; J91.0 Malignant pleural effusion; G89.3 Neoplasm related pain (acute) (chronic)
CPT/HCPCS: 36415; 80053; 85025; 86300

== ENCOUNTER → 2024-08-20 11:41 | Outpatient (REF) | payer OTHER, SELFPAY ==
[2024-08-20 12:36] LABS: % Basophils 0.5 % (0-2); % Eosinophils 1.6 % (0-6); % Immature Granulocytes 0.3 % (0-0.5); % Lymphocytes 22.8 % (20.5-51.1); % Monocytes 6.9 % (1.7-9.3); % Neutrophils 67.9 % (42.2-75.2); Absolute Eosinophils 0.1 10^3/uL (0-0.7); Absolute Monocytes 0.6 10^3/uL (0.1-0.6); Hematocrit 33.5 % (37.0-47.0); Hemoglobin 11.7 g/dL (12.0-16.0); Mean Corp Hgb Conc. 34.9 g/dL (33.0-37.0); Mean Corpuscular Hgb 36.8 pg (27.0-31.0); Mean Corpuscular Volume 105.3 fL (81.0-99.0); Mean Platelet Volume 8.8 fL (7.4-10.4); Nucleated Red Blood Cells % 0 %; Platelet Count 315 10^3/uL (130-400); Red Blood Cell Count 3.18 10^6/uL (4.20-5.40); Red Cell Dist. Width 13.2 % (11.5-14.5); White Blood Cell Count 8.9 10^3/uL (4.8-10.8)
[2024-08-20 13:57] LABS: ALT (SGPT) 23 U/L (0-35); AST (SGOT) 29 U/L (14-36); Albumin 4.4 g/dl (3.5-5.0); Alkaline Phosphatase 186 U/L (38-126); Blood Urea Nitrogen 14 mg/dl (7-17); Calcium 9.3 mg/dl (8.4-10.2); Carbon Dioxide 23 mmol/L (22-30); Chloride 100 mmol/L (98-107); Glucose 81 mg/dl (70-99); Sodium 133 mmol/L (135-145); Total Bilirubin 0.2 mg/dl (0.2-1.3); Total Protein 6.8 g/dl (6.3-8.2); eGFR > 60.00
== END ==
LOC: REG 11:41
PROVIDERS: ATTENDING PHYSICIAN Internal Medicine Hematology & Oncology; FAMILY PHYSICIAN Nurse Practitioner Family
DX: C56.9 Malignant neoplasm of unspecified ovary (principal); Z80.3 Family history of malignant neoplasm of breast; Z80.0 Family history of malignant neoplasm of digestive organs; R18.0 Malignant ascites; J91.0 Malignant pleural effusion; G89.3 Neoplasm related pain (acute) (chronic); D75.839 Thrombocytosis, unspecified; Z72.0 Tobacco use; E46 Unspecified protein-calorie malnutrition; R10.2 Pelvic and perineal pain
CPT/HCPCS: 36415; 73502; 80053; 85025

== ENCOUNTER → 2024-09-02 13:45 | Outpatient (REF) | payer OTHER, SELFPAY ==
[2024-09-02 14:39] LABS: % Basophils 0.3 % (0-2); % Eosinophils 2.5 % (0-6); % Immature Granulocytes 0.5 % (0-0.5); % Lymphocytes 24.1 % (20.5-51.1); % Monocytes 11.2 % (1.7-9.3); % Neutrophils 61.4 % (42.2-75.2); Absolute Eosinophils 0.2 10^3/uL (0-0.7); Absolute Lymphocytes 1.6 10^3/uL (1.2-3.4); Absolute Monocytes 0.7 10^3/uL (0.1-0.6); Hematocrit 34.4 % (37.0-47.0); Hemoglobin 11.6 g/dL (12.0-16.0); Mean Corp Hgb Conc. 33.7 g/dL (33.0-37.0); Mean Corpuscular Hgb 35.5 pg (27.0-31.0); Mean Corpuscular Volume 105.2 fL (81.0-99.0); Mean Platelet Volume 8.9 fL (7.4-10.4); Nucleated Red Blood Cells % 0 %; Platelet Count 236 10^3/uL (130-400); Red Blood Cell Count 3.27 10^6/uL (4.20-5.40); Red Cell Dist. Width 13.4 % (11.5-14.5); White Blood Cell Count 6.4 10^3/uL (4.8-10.8)
[2024-09-02 15:05] LABS: ALT (SGPT) 36 U/L (0-35); AST (SGOT) 49 U/L (14-36); Albumin 4.3 g/dl (3.5-5.0); Alkaline Phosphatase 212 U/L (38-126); Blood Urea Nitrogen 12 mg/dl (7-17); Calcium 9.3 mg/dl (8.4-10.2); Carbon Dioxide 24 mmol/L (22-30); Chloride 97 mmol/L (98-107); Glucose 103 mg/dl (70-99); Potassium 4.8 mmol/L (3.5-5.1); Sodium 129 mmol/L (135-145); Total Bilirubin 0.2 mg/dl (0.2-1.3); Total Protein 6.7 g/dl (6.3-8.2); eGFR > 60.00
== END ==
LOC: REG 13:45
PROVIDERS: ATTENDING PHYSICIAN Internal Medicine Hematology & Oncology; FAMILY PHYSICIAN Nurse Practitioner Family
DX: D56.9 Thalassemia, unspecified (principal); Z80.3 Family history of malignant neoplasm of breast; R18.0 Malignant ascites; J91.0 Malignant pleural effusion; G89.3 Neoplasm related pain (acute) (chronic); D75.839 Thrombocytosis, unspecified; Z72.0 Tobacco use; E46 Unspecified protein-calorie malnutrition; R10.2 Pelvic and perineal pain
CPT/HCPCS: 36415; 80053; 85025

== ENCOUNTER → 2024-09-03 11:07 | Outpatient (REF) | payer OTHER, SELFPAY | LOC: RAD 11:07 | PROVIDERS: ATTENDING PHYSICIAN Nurse Practitioner Adult Health | DX: C56.9 Malignant neoplasm of unspecified ovary (principal); Z80.3 Family history of malignant neoplasm of breast; Z80.0 Family history of malignant neoplasm of digestive organs; R18.0 Malignant ascites; J91.0 Malignant pleural effusion; G89.3 Neoplasm related pain (acute) (chronic); D75.839 Thrombocytosis, unspecified; Z72.0 Tobacco use; E46 Unspecified protein-calorie malnutrition; R10.2 Pelvic and perineal pain | CPT/HCPCS: 71046 ==

== ENCOUNTER 2024-09-06 22:41 | Observation (INO) | payer OTHER, SELFPAY ==
[2024-09-06] VITALS (7 sets, daily range): BP systolic 131–158; BP diastolic 79–121
--- NOTE | 2024-09-06 13:37 | ED.GENMED ---
Addendum entered and electronically signed by JULITO Villanueva 09/07/24 03:11:
-
Original Note:
ED Provider Triage
<Simone Greene PA-C - Last Filed: 09/06/24 13:38>
-
Patient seen by provider in Triage?: Seen in Triage
64 yo female w/ hx of COPD and tobacco use presents due to chest tightness and SOB x 2 weeks. Had outpatient CXR 3d ago unremarkable. No fevers or chills. Cough is generally dry.
Coarse expiratory wheezing heard throughout lungs. No respiratory distress on exam.
Likely viral mediated COPD exacerbation. Give PO prednisone and order DUoNeb, repeat CXR. No indication for labs at this time
History of Present Illness
<Simone Greene PA-C - Last Filed: 09/06/24 13:38>
General
Chief Complaint: Cold/Flu/URI Symptoms
Time Seen by Provider: 09/06/24 17:57
<JULITO Villanueva - Last Filed: 09/06/24 21:18>
General
Source: patient
Exam Limitations: none
History of Present Illness
History of Present Illness:
This is a 64 year old female that comes in with c/o cough and SOB. States that she has been SOB for the past 2 weeks. States that she has a lot of thick yellow mucous. States that she had a chest x-ray on Monday and she was called by [facility] and
told that she may have a blood clot or a collapsed lung. States that she was told to come to the ER. States that for the past 4 days she has had chest heaviness and it hurts to breath. States that she has some upper abd discomfort. nausea, headache
and lightheadedness. Denies any fever, chills, vomiting, diarrhea, urinary burning.
Past History
<Simone Greene PA-C - Last Filed: 09/06/24 13:38>
Past History
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
Social History
Tobacco: Smoker
Alcohol: Daily
Drug: None
Personal:
Living: with family
Family History
Family History: Cancer (Daughter with history of breast cancer) and Other ( Both mother and father with dementia)
<JULITO Villanueva - Last Filed: 09/06/24 21:18>
Past History
ED Past Medical History: Cancer (Ovarian cancer), COPD, HTN and Other (Right pleural effusion July 2023-found to be malignant effusion, Rheumatoid arthritis/gastric ulcer, Headache, neuropathy, Ascites, UTi, Paracentesis, Thoracentesis, RA)
ED Past Surgical History: Gynecological (Hysterectomy, Ovary removed)
Social History
Tobacco: Smoker
Alcohol: Occasional
Drug: None
Personal:
Living: with family
Review of Systems
<JULITO Villanueva - Last Filed: 09/06/24 21:18>
Review of Systems
All Other Systems: ROS reviewed and negative except as documented in HPI and ROS
Constitutional: Reports no symptoms; Denies fever or chills
EENT: Reports no symptoms
Respiratory: Reports cough and trouble breathing
Cardiac: Reports chest pain
ABD/GI: Reports abdominal pain (Upper abd) and nausea; Denies vomiting or diarrhea
: Reports no symptoms; Denies dysuria, frequency or urgency
Musculoskeletal: Reports no symptoms
Neurological: Reports headache and other (Lightheadedness); Denies dizzy
Psychiatric: Reports no symptoms
Phy Exam
<JULITO Villanueva - Last Filed: 09/06/24 21:18>
General Physical Exam
General Presentation: no apparent distress
General age: appears stated age
General Skin: warm and dry
General Habitus: normal
General Mental: alert
General Hydration: appears well hydrated
ENT Exam
ENT Exam: TM's normal, pharynx normal and neck supple
Eye Exam
Eye Exam: EOMI
Cardiovascular Exam
Cardiovascular Exam: regular rate/rhythm, no edema and normal peripheral pulses
Pulmonary Exam
Pulmonary Exam: no rales, no crackles, no rhonchi, generalized wheezing (Exp throughout) and other (Dry cough noted)
Gastrointestinal Exam
Gastrointestinal Exam: normal bowel sounds, soft, no pulsatile mass, ascites and tender (Generalized tenderness with palpation that patient states she has and it comes and goes)
Musculoskeletal Exam
Musculoskeletal Exam: full ROM and no edema
Skin Exam
Skin Exam: normal color, warm/dry, no rash and no petechia
Psychiatric Exam
Psychiatric Exam: normal mood/affect
Course
<Simone Greene PA-C - Last Filed: 09/06/24 13:38>
Orders/Labs/Results
Orders:
Orders
09/06/24 13:35
Ipratropium/Albuterol Sulfate [Duoneb] 6 ml INH R NOW ONE
Prednisone [Deltasone] 50 mg PO NOW STA
09/06/24 13:36
CR Chest - 2 Views Urgent
Comment:
Reason For Exam: COPD exacerbation
09/06/24 17:33
Electrocardiogram (*1) Urgent
Reason for Study: Shortness of Breath
EKG- Treatment ONCE
Ipratropium/Albuterol Sulfate [Duoneb] 3 ml INH R NOW ONE
09/06/24 18:11
CT Chest PE Study Urgent
Comment: history of ovarian Cancer
Reason For Exam: SOB, Chest heaviness
09/06/24 18:12
0.9% Sodium Chloride 500 ml [Nss] 500 ml IV BOLUS
09/06/24 19:09
Complete Blood Count/With Diff Urgent
Comprehensive Metabolic Panel Urgent
Troponin I Urgent
09/06/24 21:12
Azithromycin 500 mg/250 ml [Zithromax Infusion] 500 mg in 250 ml IV NOW
CefTRIAXone [Rocephin] 1,000 mg IV NOW STA
Abnormal Lab Results
09/06/24
19:09
RBC 3.31 L 10^6/uL
(4.20-5.40)
Hgb 11.6 L g/dL
(12.0-16.0)
Hct 34.3 L %
(37.0-47.0)
MCV 103.6 H fL
(81.0-99.0)
MCH 35.0 H pg
(27.0-31.0)
Absolute Neuts (auto) 6.7 H 10^3/uL
(1.4-6.5)
Absolute Lymphs (auto) 0.8 L 10^3/uL
(1.2-3.4)
Neutrophils % 87.5 H %
(42.2-75.2)
Lymphocytes % 10.3 L %
(20.5-51.1)
Monocytes % 1.2 L %
(1.7-9.3)
Glucose 172 H mg/dl
(70-99)
Alkaline Phosphatase 234 H U/L
(38-126)
09/06/24 19:09
09/06/24 19:09
Vital Signs
Initial and Last Documented VS:
Initial Vital Signs
Temp Pulse Resp BP Pulse Ox
98.6 F 89 22 147/109 99
09/06/24 13:32 09/06/24 13:32 09/06/24 13:32 09/06/24 13:32 09/06/24 13:32
Last Documented Vital Signs
Temp Pulse Resp BP Pulse Ox
98.6 F 72 11 158/97 99
09/06/24 16:00 09/06/24 21:00 09/06/24 21:00 09/06/24 21:00 09/06/24 21:00
<JULITO Villanueva - Last Filed: 09/06/24 21:18>
Orders/Labs/Results
Orders:
Orders
09/06/24 13:35
Ipratropium/Albuterol Sulfate [Duoneb] 6 ml INH R NOW ONE
Prednisone [Deltasone] 50 mg PO NOW STA
09/06/24 13:36
CR Chest - 2 Views Urgent
Comment:
Reason For Exam: COPD exacerbation
09/06/24 17:33
Electrocardiogram (*1) Urgent
Reason for Study: Shortness of Breath
EKG- Treatment ONCE
Ipratropium/Albuterol Sulfate [Duoneb] 3 ml INH R NOW ONE
09/06/24 18:11
CT Chest PE Study Urgent
Comment: history of ovarian Cancer
Reason For Exam: SOB, Chest heaviness
09/06/24 18:12
0.9% Sodium Chloride 500 ml [Nss] 500 ml IV BOLUS
09/06/24 19:09
Complete Blood Count/With Diff Urgent
Comprehensive Metabolic Panel Urgent
Troponin I Urgent
09/06/24 21:12
Azithromycin 500 mg/250 ml [Zithromax Infusion] 500 mg in 250 ml IV NOW
CefTRIAXone [Rocephin] 1,000 mg IV NOW STA
Abnormal Lab Results
09/06/24
19:09
RBC 3.31 L 10^6/uL
(4.20-5.40)
Hgb 11.6 L g/dL
(12.0-16.0)
Hct 34.3 L %
(37.0-47.0)
MCV 103.6 H fL
(81.0-99.0)
MCH 35.0 H pg
(27.0-31.0)
Absolute Neuts (auto) 6.7 H 10^3/uL
(1.4-6.5)
Absolute Lymphs (auto) 0.8 L 10^3/uL
(1.2-3.4)
Neutrophils % 87.5 H %
(42.2-75.2)
Lymphocytes % 10.3 L %
(20.5-51.1)
Monocytes % 1.2 L %
(1.7-9.3)
Glucose 172 H mg/dl
(70-99)
Alkaline Phosphatase 234 H U/L
(38-126)
09/06/24 19:09
09/06/24 19:09
H/H slightly low. Hyperglycemia. Alk phos elevation ( Cancer), Troponin <0.012
Vital Signs
Initial and Last Documented VS:
Initial Vital Signs
Temp Pulse Resp BP Pulse Ox
98.6 F 89 22 147/109 99
09/06/24 13:32 09/06/24 13:32 09/06/24 13:32 09/06/24 13:32 09/06/24 13:32
Last Documented Vital Signs
Temp Pulse Resp BP Pulse Ox
98.6 F 72 11 158/97 99
09/06/24 16:00 09/06/24 21:00 09/06/24 21:00 09/06/24 21:00 09/06/24 21:00
<JULITO Villanueva - Last Filed: 09/06/24 21:18>
MDM/Problems Addressed
Differential Diagnosis Includes:
PE, wheezing, COPD
MDM/Problems Addressed:
This is a 64 year old female that comes in with c/o chest heaviness and SOB. States that she has been sick for the past 2 weeks. States that she is SOB and then the past 4 days she started with chest heaviness and it hurts to breath. States that
[facility] told her to come.
Will check labs, CT chest, patient had a Duo neb and steroids,
back into see patient. Explained that she would be admitted. Continued with Exp wheezing throughout. CT shows that there is a right upper lobe Pneumonia and new metastatic disease in the upper abd. Will admit. Hospitalist notified,.
Chronic conditions affecting care: COPD and Cancer
Acute Exacerbation and/or Progression of Chronic Illness: COPD and Cancer
<JULITO Villanueva - Last Filed: 09/06/24 21:18>
*Radiology
Radiology exam reviewed: radiology read reviewed (Chest-Thin linear densities within the lingula, stable dating back to CT examination of June 07, 2024, likely linear scarring. No new lung parenchymal opacity is identified. Cardiac silhouette
and vascular markings appear within normal limits. CT chest- New hepatic and peritoneal metastatic ) and all reviewed NAD by ED Provider (CT chest cont- in the upper abdomen. new minimal right pleural effusion. New small subpleural airspace
consolidation in the right upper lobe. Diganostic possibilities are (1) mild subsegmental atelectasis or (2) Mild pneumonia. Right IJ chemotherapy mediport in place. )
*Pulse Oximetry
Patient hypoxic: no
*EKG
Interpreted by ED Provider?: Yes
Heart Rate: 69
Rate: normal
Rhythm: sinus
[place]: left axis deviation
Interval: normal interval
QRS Pattern: normal QRS
Ischemia: no ischemia
*Principal Research Economist Interpretation
Rate: Principal Research Economist- N/A
*Critical Care Note
Total Time (30-74mins, 75-104mins- exclusive of procedures): Not Applicable
ED Attending Note
<Simone Greene PA-C - Last Filed: 09/06/24 13:38>
-
Portions of this chart may have been created with voice recognition software.� Occasional wrong word or��sound alike� substitutions may have occurred due to the inherent limitations of voice recognition software.
Discharge Plan
Departure
Patient Disposition: Admit
Date of Disposition: 09/06/24
Time of Disposition: 21:14
Admit to: Med/Surg
Presentation/result/management discussed w/ accepting MD/DO: Hospitalist
Patient with high blood pressure during this ER visit?: Yes
Condition: Good
Covid-19: Not Applicable
Discharge Problem:
SOB (shortness of breath), Bilateral wheezing, Right upper lobe pneumonia
Prescriptions:
No Action
acetaminophen 500 mg Tablet
500 mg PO Q6HPRN PRN (Reason: mild pain/fever)
pantoprazole [Protonix] 40 mg tablet,delayed release (DR/EC)
40 mg PO BID Qty: 60 0RF
ondansetron HCl 8 mg Tablet
8 mg PO Q8HPRN PRN (Reason: nausea)
lisinopril 20 mg Tablet
20 mg PO DAILY
oxycodone-acetaminophen [Percocet] 5-325 mg Tablet
1 tab PO Q4HPRN PRN (Reason: moderate pain)
Patient Comments:
03/08/2024: last filled 02/14/24, 90 tabs for 15 days from [id number]
Referrals:
Katy Carlos CRNP [Family Provider] -
Interventions
Interventions:
*Risk Screen - Suicide Last Done: 09/06/24 13:32
*General Assessment Last Done: 09/06/24 13:32
*Neglect/Abuse Screening Last Done: 09/06/24 13:32
*ED COVID-19 Vaccine History Last Done: 09/06/24 19:30
ED- Pulmonary Assessment Last Done: 09/06/24 17:28
Discharge Date and Time
Print Language: SPANISH
[2024-09-06] MEDS: DELTASONE 50 MG PO (13:41)
[2024-09-06] MEDS: DUONEB 3 ML INH (17:40)
[2024-09-06 19:21] LABS: % Basophils 0.3 % (0-2); % Eosinophils 0.4 % (0-6); % Immature Granulocytes 0.3 % (0-0.5); % Lymphocytes 10.3 % (20.5-51.1); % Monocytes 1.2 % (1.7-9.3); % Neutrophils 87.5 % (42.2-75.2); Absolute Lymphocytes 0.8 10^3/uL (1.2-3.4); Absolute Monocytes 0.1 10^3/uL (0.1-0.6); Absolute Neutrophils 6.7 10^3/uL (1.4-6.5); Hematocrit 34.3 % (37.0-47.0); Hemoglobin 11.6 g/dL (12.0-16.0); Mean Corp Hgb Conc. 33.8 g/dL (33.0-37.0); Mean Corpuscular Volume 103.6 fL (81.0-99.0); Mean Platelet Volume 8.9 fL (7.4-10.4); Nucleated Red Blood Cells % 0 %; Platelet Count 252 10^3/uL (130-400); Red Blood Cell Count 3.31 10^6/uL (4.20-5.40); Red Cell Dist. Width 13.2 % (11.5-14.5); White Blood Cell Count 7.7 10^3/uL (4.8-10.8)
[2024-09-06] MEDS: NSS 500 IV (19:23)
[2024-09-06 19:40] LABS: ALT (SGPT) 28 U/L (0-35); AST (SGOT) 33 U/L (14-36); Albumin 4.3 g/dl (3.5-5.0); Alkaline Phosphatase 234 U/L (38-126); Blood Urea Nitrogen 11 mg/dl (7-17); Calcium 9.4 mg/dl (8.4-10.2); Carbon Dioxide 23 mmol/L (22-30); Chloride 102 mmol/L (98-107); Glucose 172 mg/dl (70-99); Potassium 4.6 mmol/L (3.5-5.1); Sodium 135 mmol/L (135-145); Total Bilirubin 0.2 mg/dl (0.2-1.3); Total Protein 6.8 g/dl (6.3-8.2); eGFR > 60.00
[2024-09-06 19:45] LABS: Troponin I < 0.012 ng/ml
[2024-09-06] MEDS: ROCEPHIN 1000 MG IV (21:26)
[2024-09-06] MEDS: ZITHROMAX INFUSION 250 IV (21:26)
--- NOTE | 2024-09-06 22:20 | HPS.HSE ---
Family Physician
-
Family Physician: JULITO Flores
Chief Complaint
-
Chest tightness and cough
History of Present Illness
This is a 64-year-old female with history of stage IV ovarian cancer currently on salvage chemo and presents to the emergency department after follow-up with oncologist for ongoing cough and shortness of breath.
Patient reports that she has been having 4 weeks of chest tightness and wheezing with some cough. Over the last 2 weeks she now has productive cough with increased congestion and postnasal drip. She denies any sick contact. She has not checked
her for viral infection recently. She has had no fevers or chills. She reports chest pain with coughing. She otherwise denies any chest pain at rest. She is not hypoxic but reports some mild dyspnea on exertion. She denies any lower extremity
swelling. Patient's currently smokes about 5 cigarettes a day.
Seen by her oncologist and sent to the emergency department for further evaluation pending next infusion on September 12.
In the ED she was hypertensive to 160/90, she was satting 99% on room air. ECG showed normal sinus rhythm at rate of 69. Chest x-ray shows no acute changes. She had a CT angio which is negative for PE. It did showed a right upper lobe subpleural
consolidation versus atelectasis. There is increase peritoneal and hepatic mets which are new. CBC is unchanged with a white count of 7.711 of 11.6 and platelets of 52. Electrolytes BUN/creatinine were within normal limits.
Medical History
Past Medical History
Past Medical History: Reports Cancer (Stage IV ovarian cancer on chemo), COPD and HTN
Past Surgical History: Reports Other
Social History
Tobacco: Smoker
Alcohol: Occasional
Drug: None
Personal:
Living: With Family
Family History
Family History: Not pertinent
Allergies / Home Medications
Allergies reflects when Allergies were last updated in [employer].
Home Medications with original date entered in [employer]
Allergy/Medication List:
Allergies
Allergy/AdvReac Type Severity Reaction Status Date / Time
No Known Allergies Allergy Verified 09/06/24 13:37
Home Medications
acetaminophen 500 mg tablet 500 mg PO Q6HPRN PRN mild pain/fever 07/14/23
pantoprazole 40 mg tablet,delayed release (Protonix) 40 mg PO BID #60 tabs 07/19/23
lisinopril 20 mg tablet 20 mg PO DAILY Blood Pressure 03/01/24
ondansetron HCl 8 mg tablet 8 mg PO Q8HPRN PRN nausea 03/01/24
oxycodone-acetaminophen 5 mg-325 mg tablet (Percocet) 1 tab PO Q4HPRN PRN moderate pain 03/01/24
Review of Systems
-
Constitutional: Reports No Symptoms
EENT: Reports Runny Nose
Respiratory: Reports Cough and Trouble Breathing
Cardiac: Reports No Symptoms
Abdomen/GI: Reports No Symptoms
: Reports No Symptoms
Musculoskeletal: Reports No Symptoms
Skin: Reports No Symptoms
Neurological: Reports No Symptoms
Endocrine: Reports No Symptoms
Hematologic/Lymphatic: Reports No Symptoms
Psych: Reports No Symptoms
Physical Exam
Vital Signs
Vital Signs
Temp Pulse Resp BP Pulse Ox
98.6 F 72 11 158/97 99
09/06/24 16:00 09/06/24 21:00 09/06/24 21:00 09/06/24 21:00 09/06/24 21:00
Physical Exam
General: Well Developed, Well Nourished, Comfortable and Conversant
HEENT: NormoCephalic, Anicteric, Moist mucous membranes and Atraumatic
Respiratory: Clear and Wheezes
Cardiac: S1/S2 and Regular Rhythm
Breast: Deferred by me
GI: Non Tender, Non Distended and Normal Bowel Sounds
Rectal: Deferred by Provider
Genito-urinary: Deferred by me
Musculoskeletal: No Clubbing, No Cyanosis and No Edema
Neuro: AO x 3 and Nonfocal/grossly intact
Psych: Calm
Laboratory Results
-
09/06/24 19:09
09/06/24 19:
Laboratory Results
Total Bilirubin 0.2 mg/dl (0.2-1.3) 09/06/24 19:
AST 33 U/L (14-36) 09/06/24 19:
ALT 28 U/L (0-35) 09/06/24 19:09
Alkaline Phosphatase 234 U/L (38-126) H 09/06/24 19:
Troponin I < 0.012 ng/ml 09/06/24 19:09
Data Reviewed
-
Diagnostic Radiology: Image Personally Visualized and interpreted
CT Scan: Report Reviewed by me
Medical Tests (Nuc Med, Echo, EKG etc): Image Personally Visualized and interpreted
Lab Data: Labs Reviewed by me
Old Records: Reviewed
Impression/Plan
-
IMPRESSION:
64-year-old female with history of ovarian cancer presenting to the emergency department with progressive worsening of cough and shortness of breath. She has chest tightness and cough that is productive of yellowish to greenish sputum. This has
been going on for at least 2 weeks. Examination she has coarse wheezes bilaterally throughout the lung hernandez. X-ray is unrevealing. CT is negative for PE but does show possible right lower lobe opacity/atelectasis. She is not hypoxic. She is
afebrile and hemodynamically stable in no acute distress. Incidental findings on CT scan shows increased mets with mets to liver and peritoneal.
PLAN:
1. COPD exacerbation - Picture is more c/w COPD exacerbation than pneumonia but cannot rule out pna
- admit to med/surg
- check covid/flu
- continue ceftriaxone/azithromycin pending procalcitonin
- prednisone daily
- nebs RTC and prn
- supportive care with antitussives
2. Ovarian Ca - patient on salvage chemo, new mets.
- outpatient onc follow up
DVT PPX - lovenox sq
Code status - Full code
[2024-09-06 23:15] LABS: COVID-19 Antigen Negative (Negative)
[2024-09-07] VITALS: BP 139/72
[2024-09-07 01:00] VITALS: BP 143/72
[2024-09-07 01:34] VITALS: BP 158/88; BMI 23.5
--- NOTE | 2024-09-07 03:01 | PTCARENOTE ---
Pt. arrived to unit from ED via stretcher. Patient able to safely ambulate into room 337-1 on . Patient AAOx3 and able to make needs known. Abdomen round, distended. Patient reports this is chronic for her. Oriented to unit. Call winter within
reach. Plan of care ongoing.
--- NOTE | 2024-09-07 07:15 | W.PN.HOSP.TC ---
Today's Communication/Plan
-
Discharge today
Assessment / Plan
Assessment / Plan
Physical Exam
General: Well Developed, Well Nourished, Comfortable and Conversant
HEENT: NormoCephalic, Anicteric, Moist mucous membranes and Atraumatic
Respiratory: Clear and Wheezes
Cardiac: S1/S2 and Regular Rhythm
Breast: Deferred by me
GI: Non Tender, Non Distended and Normal Bowel Sounds
Rectal: Deferred by Provider
Genito-urinary: Deferred by me
Musculoskeletal: No Clubbing, No Cyanosis and No Edema
Neuro: AO x 3 and Nonfocal/grossly intact
Psych: Calm
Assessment/Plan
64-year-old female with history of ovarian cancer presenting to the emergency department with progressive worsening of cough and shortness of breath. She has chest tightness and cough that is productive of yellowish to greenish sputum. This has
been going on for at least 2 weeks. Examination she has coarse wheezes bilaterally throughout the lung hernandez. X-ray is unrevealing. CT is negative for PE but does show possible right lower lobe opacity/atelectasis. She is not hypoxic. She is
afebrile and hemodynamically stable in no acute distress. Incidental findings on CT scan shows increased mets with mets to liver and peritoneal.
PLAN:
#COPD exacerbation - Picture is more c/w COPD exacerbation than pneumonia but cannot rule out pna
- Currently on room air
- COVID and Flu negative
- continue ceftriaxone/azithromycin inpatient
- Duonebs while inpatient
- Prednisone taper
- Augmentin 875 Q12H for 5 days
- On discharge, will do Symbicort and prn Albuterol
- nebs RTC and prn
- supportive care with antitussives
#Ovarian Ca - patient on salvage chemo, new mets.
- outpatient onc follow up
DVT PPX - lovenox sq
Code status - Full code
More than 30 minutes spent in discharge including
Final examination of the patient
Summarizing hospital stay
Instructions for continuing care to all relevant caregivers
Preparation of discharge records, prescriptions, and referral forms
Total time spent (in minutes): 39
Anticipated Discharge: Today
Subjective/Interval History
-
Date of Service: September 07, 2024
Objective Data
-
Labs:
Laboratory Results
09/06/24 09/07/24
19:09 06:00
WBC 7.7 Pending
Hgb 11.6 L Pending
Hct 34.3 L Pending
Plt Count 252 Pending
Sodium 135 Pending
Potassium 4.6 Pending
Chloride 102 Pending
Carbon Dioxide 23 Pending
BUN 11 Pending
Creatinine 0.7 Pending
Glucose 172 H Pending
Calcium 9.4 Pending
Total Bilirubin 0.2
AST 33
ALT 28
Alkaline Phosphatase 234 H
Vital Signs:
Vital Signs
Temp Pulse Resp BP Pulse Ox
98.0 F 76 18 158/88 99
09/07/24 01:34 09/07/24 01:34 09/07/24 01:34 09/07/24 01:34 09/07/24 01:34
I&O
09/06/24 09/07/24 09/08/24
06:59 06:59 06:59
Intake Total 240 / 240
Balance 240 / 240
[2024-09-07 07:52] VITALS: BP 133/80
[2024-09-07] MEDS: DUONEB 3 ML INH ×2 (08:08→12:06)
[2024-09-07 08:12] LABS: Hematocrit 30.6 % (37.0-47.0); Hemoglobin 10.7 g/dL (12.0-16.0); Mean Corpuscular Hgb 35.9 pg (27.0-31.0); Mean Corpuscular Volume 102.7 fL (81.0-99.0); Mean Platelet Volume 8.9 fL (7.4-10.4); Platelet Count 232 10^3/uL (130-400); Red Blood Cell Count 2.98 10^6/uL (4.20-5.40); Red Cell Dist. Width 13.2 % (11.5-14.5); White Blood Cell Count 6.8 10^3/uL (4.8-10.8)
[2024-09-07 08:40] LABS: Procalcitonin < 0.05 ng/ml (0.0-0.25)
[2024-09-07] MEDS: ZESTRIL 20 MG PO (09:05)
[2024-09-07] MEDS: MUCINEX 600 MG PO (09:05)
[2024-09-07] MEDS: DELTASONE 50 MG PO (09:05)
[2024-09-07] MEDS: PROTONIX 40 MG PO (09:05)
[2024-09-07 09:26] LABS: Blood Urea Nitrogen 10 mg/dl (7-17); Calcium 9.3 mg/dl (8.4-10.2); Carbon Dioxide 24 mmol/L (22-30); Chloride 104 mmol/L (98-107); Estimated Creatinine Clearance 59 ml/min; Glucose 84 mg/dl (70-99); Potassium 4.4 mmol/L (3.5-5.1); Sodium 136 mmol/L (135-145); eGFR > 60.00
--- NOTE | 2024-09-07 15:28 | CM ---
Initial assessment completed at bedside
Outpatient Observation Form provided; form signed @ 1524
Pharmacy verified: [facility] @ [address]
Patient lives with spouse and 2 daughters in a one floor [place]; 1 step to enter; bath has stall shower with grab bar and shower chair
Independent with ambulation, stairs, and ADLs; no longer driving
NO SNF or Home Health utilization history
Spouse will transport home
Plan: Discharge to home today; no needs
--- NOTE | 2024-09-07 15:57 | W.DCSUMMARY ---
Discharge Summary
Discharge Data
Date of Admission: 09/06/24
Date of Discharge: 09/07/24
Total time spent discharging patient (in min): 39
-
Pending Results: No
Hospital Course
64-year-old female with past medical history of stage IV ovarian cancer currently on salvage chemo and presented to the emergency department after follow-up with oncologist for ongoing cough and shortness of breath. Patient was started on
antibiotics and steroids, and within less than 24 hours was doing much better, she was eager to go home and insisted on leaving, and she was stable for discharge with outpatient pulmonary.
Discharge Plan
-
Patient Disposition: Home (Routine Discharge)
Discharge Diagnosis/Procedures: Chest CT Results (as per radiologist's report)
'IMPRESSION:
1. NEW HEPATIC and PERITONEAL METASTATIC DISEASE in the upper abdomen.
2. New minimal right pleural effusion.
3. New small subpleural airspace consolidation in the right lower lobe. Diagnostic possibilities are (1) mild subsegmental atelectasis or (2) mild pneumonia.
4. Right IJ chemotherapy Mediport in place.'

#COPD exacerbation
#Ovarian Cancer
#Rheumatoid Arthritis?
#GERD?
Condition: Good
Diet: As tolerated
Activity: As tolerated
Referrals:
Elsa Cotto MD [Active] - in two to three weeks (Hospital follow-up for COPD)
Katy Carlos CRNP [Family Provider] - in less than 1 week
Additional Discharge Medication Instructions: Symbicort, as needed albuterol inhaler, Amoxicillin-Clavulanate, Guaifenesin and Prednisone Taper are new medications.
Prescriptions:
New
prednisone 10 mg tablet
See Rx Instructions .ROUTE .COMPLEX Qty: 40 0RF
Rx Instructions:
Start on 09/08/23: 50 mg/d x2 days; 40 mg/d x3 days; 30 mg/d x3 days; 20 mg/d x3 days; 10 mg/d x3 days
amoxicillin-pot clavulanate 875-125 mg tablet
1 tab PO Q12H 5 Days Qty: 10 0RF
albuterol sulfate 90 mcg/actuation HFA aerosol inhaler
2 puff inhalation Q6H PRN (Reason: shortness of breath or wheezing) Qty: 6.7 1RF
budesonide-formoterol [Symbicort] 160-4.5 mcg/actuation HFA aerosol inhaler
2 puff inhalation Q12H Qty: 10.2 1RF
guaifenesin 600 mg Tablet Extended Release 12hr
600 mg PO Q12 Qty: 60 1RF
Continued
acetaminophen 500 mg Tablet
500 mg PO Q6HPRN PRN (Reason: mild pain/fever)
pantoprazole [Protonix] 40 mg tablet,delayed release (DR/EC)
40 mg PO BID Qty: 60 0RF
lisinopril 20 mg Tablet
20 mg PO DAILY
gabapentin 300 mg Capsule
300 mg PO QID
sodium chloride tablet
1,000 mg PO BID
Discontinued
ondansetron HCl 8 mg Tablet
8 mg PO Q8HPRN PRN (Reason: nausea)
oxycodone-acetaminophen [Percocet] 5-325 mg Tablet
1 tab PO Q4HPRN PRN (Reason: moderate pain)
Patient Comments:
03/08/2024: last filled 02/14/24, 90 tabs for 15 days from [facility]#[id number]
Discharge Orders:
Discharge Patient (As Directed); Ordered 09/07/24
Ordered By: Robbi Rausch
Discharge Date and Time
Discharge Date/Time: 09/07/24 17:45
Print Language: UPPER SORBIAN
[2024-09-07] MEDS: DUONEB INH (16:09)
[2024-09-07 16:12] VITALS: BP 136/72
== END 2024-09-07 17:45 | disposition home or self-care (01) ==
LOC: 3 WEST ACU 22:41
PROVIDERS: Clinical Nurse Specialist Family Health; ADMITTING PHYSICIAN Internal Medicine; ATTENDING PHYSICIAN Hospitalist; EMERGENCY PHYSICIAN Emergency Medicine; FAMILY PHYSICIAN Nurse Practitioner Family
DX: J18.9 Pneumonia, unspecified organism (principal); J90 Pleural effusion, not elsewhere classified; R06.02 Shortness of breath; R05.9 Cough, unspecified; R42 Dizziness and giddiness; R11.0 Nausea; R51.9 Headache, unspecified; R10.10 Upper abdominal pain, unspecified; R09.82 Postnasal drip; J98.11 Atelectasis; C78.6 Secondary malignant neoplasm of retroperitoneum and peritoneum; C78.7 Secondary malignant neoplasm of liver and intrahepatic bile duct; C56.9 Malignant neoplasm of unspecified ovary; J44.0 Chronic obstructive pulmonary disease with (acute) lower respiratory infection; F17.210 Nicotine dependence, cigarettes, uncomplicated; M06.9 Rheumatoid arthritis, unspecified; I10 Essential (primary) hypertension; J44.1 Chronic obstructive pulmonary disease with (acute) exacerbation; R73.9 Hyperglycemia, unspecified; Z87.440 Personal history of urinary (tract) infections; Z90.721 Acquired absence of ovaries, unilateral; Z90.710 Acquired absence of both cervix and uterus; Z87.11 Personal history of peptic ulcer disease; Z92.21 Personal history of antineoplastic chemotherapy; Z11.52 Encounter for screening for COVID-19
CPT/HCPCS: 71046; 71275; 80048; 80053; 84145; 84484; 85025; 85027; 87502; 87811; 93005; 94640; 96361; 96365; 96375; 99285; 99406; G0378; Q9967

== ENCOUNTER → 2024-09-11 11:10 | Outpatient (REF) | payer OTHER, SELFPAY ==
[2024-09-11 12:40] LABS: % Basophils 0.2 % (0-2); % Eosinophils 0.5 % (0-6); % Immature Granulocytes 0.8 % (0-0.5); % Lymphocytes 13.7 % (20.5-51.1); % Monocytes 5.2 % (1.7-9.3); % Neutrophils 79.6 % (42.2-75.2); Absolute Eosinophils 0.1 10^3/uL (0-0.7); Absolute Immature Granulocytes 0.1 10^3/uL (0-0.05); Absolute Lymphocytes 1.8 10^3/uL (1.2-3.4); Absolute Monocytes 0.7 10^3/uL (0.1-0.6); Absolute Neutrophils 10.3 10^3/uL (1.4-6.5); Hematocrit 35.9 % (37.0-47.0); Hemoglobin 11.8 g/dL (12.0-16.0); Mean Corp Hgb Conc. 32.9 g/dL (33.0-37.0); Mean Corpuscular Hgb 34.8 pg (27.0-31.0); Mean Corpuscular Volume 105.9 fL (81.0-99.0); Mean Platelet Volume 9.1 fL (7.4-10.4); Nucleated Red Blood Cells % 0 %; Platelet Count 309 10^3/uL (130-400); Red Blood Cell Count 3.39 10^6/uL (4.20-5.40); Red Cell Dist. Width 13.6 % (11.5-14.5)
[2024-09-11 14:24] LABS: ALT (SGPT) 18 U/L (0-35); AST (SGOT) 19 U/L (14-36); Albumin 4.1 g/dl (3.5-5.0); Alkaline Phosphatase 153 U/L (38-126); Blood Urea Nitrogen 10 mg/dl (7-17); Calcium 8.8 mg/dl (8.4-10.2); Carbon Dioxide 25 mmol/L (22-30); Chloride 102 mmol/L (98-107); Glucose 82 mg/dl (70-99); Potassium 3.7 mmol/L (3.5-5.1); Sodium 137 mmol/L (135-145); Total Bilirubin 0.5 mg/dl (0.2-1.3); Total Protein 6.5 g/dl (6.3-8.2); eGFR > 60.00
== END ==
LOC: REG 11:10
PROVIDERS: ATTENDING PHYSICIAN Internal Medicine Hematology & Oncology; FAMILY PHYSICIAN Nurse Practitioner Family
DX: C56.9 Malignant neoplasm of unspecified ovary (principal); Z80.3 Family history of malignant neoplasm of breast; Z80.0 Family history of malignant neoplasm of digestive organs; R18.0 Malignant ascites; J91.0 Malignant pleural effusion; G89.3 Neoplasm related pain (acute) (chronic); D75.839 Thrombocytosis, unspecified; Z72.0 Tobacco use; E46 Unspecified protein-calorie malnutrition; R10.2 Pelvic and perineal pain
CPT/HCPCS: 36415; 80053; 85025

== ENCOUNTER → 2024-09-13 14:48 | Outpatient (REF) | payer OTHER, SELFPAY | LOC: RAD 14:48 | PROVIDERS: ATTENDING PHYSICIAN Internal Medicine Hematology & Oncology; FAMILY PHYSICIAN Nurse Practitioner Family | DX: C56.9 Malignant neoplasm of unspecified ovary (principal); Z80.3 Family history of malignant neoplasm of breast; Z80.0 Family history of malignant neoplasm of digestive organs | CPT/HCPCS: 76700 ==

== ENCOUNTER → 2024-09-17 11:53 | Outpatient (REF) | payer OTHER, SELFPAY ==
[2024-09-17 12:44] LABS: % Basophils 0.1 % (0-2); % Eosinophils 0.1 % (0-6); % Immature Granulocytes 0.5 % (0-0.5); % Lymphocytes 7.3 % (20.5-51.1); % Monocytes 1.6 % (1.7-9.3); % Neutrophils 90.4 % (42.2-75.2); Absolute Immature Granulocytes 0.1 10^3/uL (0-0.05); Absolute Monocytes 0.2 10^3/uL (0.1-0.6); Absolute Neutrophils 12.2 10^3/uL (1.4-6.5); Hematocrit 35.8 % (37.0-47.0); Hemoglobin 12.3 g/dL (12.0-16.0); Mean Corp Hgb Conc. 34.4 g/dL (33.0-37.0); Mean Corpuscular Hgb 35.3 pg (27.0-31.0); Mean Corpuscular Volume 102.9 fL (81.0-99.0); Mean Platelet Volume 9.1 fL (7.4-10.4); Nucleated Red Blood Cells % 0 %; Platelet Count 296 10^3/uL (130-400); Red Blood Cell Count 3.48 10^6/uL (4.20-5.40); Red Cell Dist. Width 14.2 % (11.5-14.5); White Blood Cell Count 13.5 10^3/uL (4.8-10.8)
[2024-09-17 13:54] LABS: ALT (SGPT) 25 U/L (0-35); AST (SGOT) 30 U/L (14-36); Albumin 4.4 g/dl (3.5-5.0); Alkaline Phosphatase 188 U/L (38-126); Blood Urea Nitrogen 14 mg/dl (7-17); Calcium 9.7 mg/dl (8.4-10.2); Carbon Dioxide 24 mmol/L (22-30); Chloride 99 mmol/L (98-107); Glucose 195 mg/dl (70-99); Potassium 4.7 mmol/L (3.5-5.1); Sodium 134 mmol/L (135-145); Total Bilirubin 0.3 mg/dl (0.2-1.3); Total Protein 6.9 g/dl (6.3-8.2); eGFR > 60.00
[2024-09-17 14:07] LABS: CA 125 3160 U/mL (0-35)
== END ==
LOC: REG 11:53
PROVIDERS: ATTENDING PHYSICIAN Internal Medicine Hematology & Oncology; FAMILY PHYSICIAN Nurse Practitioner Family; REFERRING PHYSICIAN Obstetrics & Gynecology Gynecologic Oncology
DX: C56.9 Malignant neoplasm of unspecified ovary (principal); Z80.3 Family history of malignant neoplasm of breast; Z80.0 Family history of malignant neoplasm of digestive organs; R18.0 Malignant ascites; J91.0 Malignant pleural effusion; G89.3 Neoplasm related pain (acute) (chronic); D75.839 Thrombocytosis, unspecified; Z72.0 Tobacco use; E46 Unspecified protein-calorie malnutrition; R10.2 Pelvic and perineal pain
CPT/HCPCS: 36415; 80053; 85025; 86304

== ENCOUNTER → 2024-09-23 11:53 | Outpatient (REF) | payer OTHER, SELFPAY ==
[2024-09-23 12:22] LABS: % Basophils 0.2 % (0-2); % Eosinophils 0.3 % (0-6); % Immature Granulocytes 0.6 % (0-0.5); % Monocytes 4.2 % (1.7-9.3); % Neutrophils 83.7 % (42.2-75.2); Absolute Immature Granulocytes 0.1 10^3/uL (0-0.05); Absolute Lymphocytes 1.3 10^3/uL (1.2-3.4); Absolute Monocytes 0.5 10^3/uL (0.1-0.6); Absolute Neutrophils 9.8 10^3/uL (1.4-6.5); Hematocrit 37.4 % (37.0-47.0); Hemoglobin 12.5 g/dL (12.0-16.0); Mean Corp Hgb Conc. 33.4 g/dL (33.0-37.0); Mean Corpuscular Hgb 34.2 pg (27.0-31.0); Mean Corpuscular Volume 102.5 fL (81.0-99.0); Mean Platelet Volume 8.7 fL (7.4-10.4); Nucleated Red Blood Cells % 0 %; Platelet Count 332 10^3/uL (130-400); Red Blood Cell Count 3.65 10^6/uL (4.20-5.40); Red Cell Dist. Width 14.4 % (11.5-14.5); White Blood Cell Count 11.7 10^3/uL (4.8-10.8)
[2024-09-23 12:39] LABS: ALT (SGPT) 25 U/L (0-35); AST (SGOT) 22 U/L (14-36); Albumin 4.6 g/dl (3.5-5.0); Alkaline Phosphatase 160 U/L (38-126); Blood Urea Nitrogen 22 mg/dl (7-17); Calcium 9.5 mg/dl (8.4-10.2); Carbon Dioxide 24 mmol/L (22-30); Chloride 97 mmol/L (98-107); Glucose 159 mg/dl (70-99); Potassium 5.1 mmol/L (3.5-5.1); Sodium 132 mmol/L (135-145); Total Bilirubin 0.2 mg/dl (0.2-1.3); Total Protein 7.1 g/dl (6.3-8.2); eGFR > 60.00
[2024-09-23 19:14] LABS: CA 125 4160 U/mL (0-35)
== END ==
LOC: REG 11:53
PROVIDERS: ATTENDING PHYSICIAN Internal Medicine Hematology & Oncology; FAMILY PHYSICIAN Nurse Practitioner Family; REFERRING PHYSICIAN Obstetrics & Gynecology Gynecologic Oncology
DX: C56.9 Malignant neoplasm of unspecified ovary (principal); Z80.3 Family history of malignant neoplasm of breast; Z80.0 Family history of malignant neoplasm of digestive organs; R18.0 Malignant ascites; J91.0 Malignant pleural effusion; G89.3 Neoplasm related pain (acute) (chronic); D75.839 Thrombocytosis, unspecified; Z72.0 Tobacco use; E46 Unspecified protein-calorie malnutrition; R10.2 Pelvic and perineal pain
CPT/HCPCS: 36415; 80053; 85025; 86304

== ENCOUNTER → 2024-09-26 13:00 | Outpatient (REF) | payer OTHER, SELFPAY | LOC: RAD 13:00 | PROVIDERS: ATTENDING PHYSICIAN Obstetrics & Gynecology Gynecologic Oncology; FAMILY PHYSICIAN Nurse Practitioner Family | DX: R10.2 Pelvic and perineal pain (principal); C56.9 Malignant neoplasm of unspecified ovary; Z80.3 Family history of malignant neoplasm of breast; Z80.0 Family history of malignant neoplasm of digestive organs; R18.0 Malignant ascites; J91.0 Malignant pleural effusion; G89.3 Neoplasm related pain (acute) (chronic); D75.839 Thrombocytosis, unspecified; Z72.0 Tobacco use; E46 Unspecified protein-calorie malnutrition | CPT/HCPCS: 71260; 74177; Q9967 ==

== ENCOUNTER 2024-09-27 07:47 | Outpatient (REF) | payer OTHER, SELFPAY ==
[2024-09-27] VITALS (7 sets, daily range): BP systolic 71–126; BP diastolic 54–67; BMI 23.6
[2024-09-27 09:01] LABS: % Basophils 0.3 % (0-2); % Eosinophils 0.7 % (0-6); % Immature Granulocytes 0.7 % (0-0.5); % Lymphocytes 8.3 % (20.5-51.1); % Monocytes 5.3 % (1.7-9.3); % Neutrophils 84.7 % (42.2-75.2); Absolute Eosinophils 0.1 10^3/uL (0-0.7); Absolute Immature Granulocytes 0.1 10^3/uL (0-0.05); Absolute Lymphocytes 1.1 10^3/uL (1.2-3.4); Absolute Monocytes 0.7 10^3/uL (0.1-0.6); Absolute Neutrophils 11.4 10^3/uL (1.4-6.5); Hemoglobin 12.2 g/dL (12.0-16.0); Mean Corp Hgb Conc. 34.9 g/dL (33.0-37.0); Mean Corpuscular Volume 100.3 fL (81.0-99.0); Mean Platelet Volume 8.7 fL (7.4-10.4); Nucleated Red Blood Cells % 0 %; Platelet Count 285 10^3/uL (130-400); Red Blood Cell Count 3.49 10^6/uL (4.20-5.40); Red Cell Dist. Width 14.6 % (11.5-14.5); White Blood Cell Count 13.5 10^3/uL (4.8-10.8)
[2024-09-27 09:18] LABS: INR 0.93; PT 12.8 Sec (11.4-14.6)
--- NOTE | 2024-09-27 12:36 | VATNOTE ---
R SQ port deaccessed at this time per protocol. Flushed with heparin, see MAR.
== END 2024-09-27 12:39 | disposition home or self-care (01) ==
LOC: RADI 07:47
PROVIDERS: Radiology Vascular & Interventional Radiology; ATTENDING PHYSICIAN Internal Medicine Hematology & Oncology; FAMILY PHYSICIAN Nurse Practitioner Family
DX: C78.7 Secondary malignant neoplasm of liver and intrahepatic bile duct (principal); C56.9 Malignant neoplasm of unspecified ovary
CPT/HCPCS: 88307; 47000; 76942; 85025; 85610; 88333; 99152

== ENCOUNTER → 2024-09-30 12:26 | Outpatient (REF) | payer OTHER, SELFPAY ==
[2024-09-30 13:04] LABS: % Basophils 0.3 % (0-2); % Eosinophils 0.2 % (0-6); % Immature Granulocytes 0.8 % (0-0.5); % Lymphocytes 7.9 % (20.5-51.1); % Monocytes 3.1 % (1.7-9.3); % Neutrophils 87.7 % (42.2-75.2); Absolute Immature Granulocytes 0.1 10^3/uL (0-0.05); Absolute Lymphocytes 1.1 10^3/uL (1.2-3.4); Absolute Monocytes 0.4 10^3/uL (0.1-0.6); Absolute Neutrophils 12.4 10^3/uL (1.4-6.5); Hematocrit 36.6 % (37.0-47.0); Hemoglobin 12.5 g/dL (12.0-16.0); Mean Corp Hgb Conc. 34.2 g/dL (33.0-37.0); Mean Corpuscular Hgb 34.2 pg (27.0-31.0); Mean Corpuscular Volume 100.3 fL (81.0-99.0); Mean Platelet Volume 9.1 fL (7.4-10.4); Nucleated Red Blood Cells % 0 %; Platelet Count 286 10^3/uL (130-400); Red Blood Cell Count 3.65 10^6/uL (4.20-5.40); Red Cell Dist. Width 14.5 % (11.5-14.5); White Blood Cell Count 14.1 10^3/uL (4.8-10.8)
[2024-09-30 13:43] LABS: ALT (SGPT) 21 U/L (0-35); AST (SGOT) 22 U/L (14-36); Albumin 4.4 g/dl (3.5-5.0); Alkaline Phosphatase 141 U/L (38-126); Blood Urea Nitrogen 19 mg/dl (7-17); Calcium 9.8 mg/dl (8.4-10.2); Carbon Dioxide 23 mmol/L (22-30); Chloride 93 mmol/L (98-107); Glucose 128 mg/dl (70-99); Potassium 5.1 mmol/L (3.5-5.1); Sodium 125 mmol/L (135-145); Total Bilirubin 0.2 mg/dl (0.2-1.3); Total Protein 6.9 g/dl (6.3-8.2); eGFR > 60.00
== END ==
LOC: REG 12:26
PROVIDERS: ATTENDING PHYSICIAN Internal Medicine Hematology & Oncology; FAMILY PHYSICIAN Nurse Practitioner Family
DX: C56.9 Malignant neoplasm of unspecified ovary (principal); Z80.3 Family history of malignant neoplasm of breast; Z80.0 Family history of malignant neoplasm of digestive organs; R18.0 Malignant ascites; J91.0 Malignant pleural effusion; G89.3 Neoplasm related pain (acute) (chronic); D75.839 Thrombocytosis, unspecified; Z72.0 Tobacco use; E46 Unspecified protein-calorie malnutrition
CPT/HCPCS: 36415; 80053; 85025

== ENCOUNTER → 2024-10-02 10:46 | Outpatient (REF) | payer OTHER, SELFPAY | LOC: RCS 10:46 | PROVIDERS: ATTENDING PHYSICIAN Internal Medicine Hematology & Oncology; FAMILY PHYSICIAN Nurse Practitioner Family | DX: R10.2 Pelvic and perineal pain (principal) | CPT/HCPCS: 93306; 93356 ==

== ENCOUNTER → 2024-10-07 13:25 | Outpatient (REF) | payer OTHER, SELFPAY | LOC: MRI 3T 13:25 | PROVIDERS: ATTENDING PHYSICIAN Internal Medicine Hematology & Oncology; FAMILY PHYSICIAN Nurse Practitioner Family | DX: R10.2 Pelvic and perineal pain (principal) | CPT/HCPCS: 72158; A9575 ==

== ENCOUNTER → 2024-10-08 10:48 | Outpatient (REF) | payer OTHER, SELFPAY ==
[2024-10-08 11:41] LABS: % Basophils 0.2 % (0-2); % Eosinophils 0.4 % (0-6); % Immature Granulocytes 0.4 % (0-0.5); % Lymphocytes 8.1 % (20.5-51.1); % Monocytes 2.4 % (1.7-9.3); % Neutrophils 88.5 % (42.2-75.2); Absolute Immature Granulocytes 0.1 10^3/uL (0-0.05); Absolute Lymphocytes 0.9 10^3/uL (1.2-3.4); Absolute Monocytes 0.3 10^3/uL (0.1-0.6); Absolute Neutrophils 9.9 10^3/uL (1.4-6.5); Hematocrit 36.7 % (37.0-47.0); Hemoglobin 12.4 g/dL (12.0-16.0); Mean Corp Hgb Conc. 33.8 g/dL (33.0-37.0); Mean Corpuscular Hgb 33.6 pg (27.0-31.0); Mean Corpuscular Volume 99.5 fL (81.0-99.0); Mean Platelet Volume 9.1 fL (7.4-10.4); Nucleated Red Blood Cells % 0 %; Platelet Count 253 10^3/uL (130-400); Red Blood Cell Count 3.69 10^6/uL (4.20-5.40); Red Cell Dist. Width 14.6 % (11.5-14.5); White Blood Cell Count 11.2 10^3/uL (4.8-10.8)
[2024-10-08 12:07] LABS: ALT (SGPT) 22 U/L (0-35); AST (SGOT) 25 U/L (14-36); Albumin 4.7 g/dl (3.5-5.0); Alkaline Phosphatase 121 U/L (38-126); Blood Urea Nitrogen 24 mg/dl (7-17); Calcium 8.9 mg/dl (8.4-10.2); Carbon Dioxide 24 mmol/L (22-30); Chloride 95 mmol/L (98-107); Glucose 112 mg/dl (70-99); Potassium 5.1 mmol/L (3.5-5.1); Sodium 130 mmol/L (135-145); Total Bilirubin 0.7 mg/dl (0.2-1.3); Total Protein 7.4 g/dl (6.3-8.2); eGFR > 60.00
== END ==
LOC: REG 10:48
PROVIDERS: ATTENDING PHYSICIAN Specialist; FAMILY PHYSICIAN Nurse Practitioner Family; REFERRING PHYSICIAN Internal Medicine Hematology & Oncology
DX: C56.9 Malignant neoplasm of unspecified ovary (principal); Z80.3 Family history of malignant neoplasm of breast; Z80.0 Family history of malignant neoplasm of digestive organs; R18.0 Malignant ascites; J91.0 Malignant pleural effusion; G89.3 Neoplasm related pain (acute) (chronic); D75.839 Thrombocytosis, unspecified; Z72.0 Tobacco use; E46 Unspecified protein-calorie malnutrition; R10.2 Pelvic and perineal pain; E87.1 Hypo-osmolality and hyponatremia
CPT/HCPCS: 36415; 80053; 85025

== ENCOUNTER → 2024-10-09 10:54 | Outpatient (REF) | payer OTHER, SELFPAY | LOC: PET 10:54 | PROVIDERS: ATTENDING PHYSICIAN Internal Medicine Hematology & Oncology | DX: C56.3 Malignant neoplasm of bilateral ovaries (principal) | CPT/HCPCS: 78815; A9552 ==

== ENCOUNTER → 2024-10-16 12:30 | Outpatient (REF) | payer OTHER, SELFPAY ==
[2024-10-16 13:47] LABS: % Basophils 0.2 % (0-2); % Eosinophils 0.2 % (0-6); % Immature Granulocytes 0.6 % (0-0.5); % Lymphocytes 15.8 % (20.5-51.1); % Neutrophils 79.2 % (42.2-75.2); Absolute Lymphocytes 0.8 10^3/uL (1.2-3.4); Absolute Monocytes 0.2 10^3/uL (0.1-0.6); Absolute Neutrophils 3.8 10^3/uL (1.4-6.5); Hematocrit 30.9 % (37.0-47.0); Hemoglobin 10.7 g/dL (12.0-16.0); Mean Corp Hgb Conc. 34.6 g/dL (33.0-37.0); Mean Corpuscular Hgb 33.9 pg (27.0-31.0); Mean Corpuscular Volume 97.8 fL (81.0-99.0); Mean Platelet Volume 9.7 fL (7.4-10.4); Nucleated Red Blood Cells % 0 %; Platelet Count 144 10^3/uL (130-400); Red Blood Cell Count 3.16 10^6/uL (4.20-5.40); Red Cell Dist. Width 14.5 % (11.5-14.5); White Blood Cell Count 4.8 10^3/uL (4.8-10.8)
[2024-10-16 13:51] LABS: ALT (SGPT) 22 U/L (0-35); AST (SGOT) 22 U/L (14-36); Albumin 4.3 g/dl (3.5-5.0); Alkaline Phosphatase 145 U/L (38-126); Blood Urea Nitrogen 18 mg/dl (7-17); Calcium 9.3 mg/dl (8.4-10.2); Carbon Dioxide 25 mmol/L (22-30); Chloride 96 mmol/L (98-107); Glucose 105 mg/dl (70-99); Potassium 4.7 mmol/L (3.5-5.1); Sodium 130 mmol/L (135-145); Total Bilirubin 0.6 mg/dl (0.2-1.3); Total Protein 6.6 g/dl (6.3-8.2); eGFR > 60.00
[2024-10-16 15:03] LABS: CA 125 4060 U/mL (0-35)
== END ==
LOC: REG 12:30
PROVIDERS: ATTENDING PHYSICIAN Internal Medicine Hematology & Oncology; FAMILY PHYSICIAN Nurse Practitioner Family; REFERRING PHYSICIAN Obstetrics & Gynecology Gynecologic Oncology
DX: C56.9 Malignant neoplasm of unspecified ovary (principal); Z80.3 Family history of malignant neoplasm of breast; Z80.0 Family history of malignant neoplasm of digestive organs; R18.0 Malignant ascites; J91.0 Malignant pleural effusion; G89.3 Neoplasm related pain (acute) (chronic); D75.839 Thrombocytosis, unspecified; Z72.0 Tobacco use; E46 Unspecified protein-calorie malnutrition; R10.2 Pelvic and perineal pain; C56.3 Malignant neoplasm of bilateral ovaries
CPT/HCPCS: 36415; 80053; 85025; 86304

== ENCOUNTER → 2024-10-22 12:11 | Outpatient (REF) | payer OTHER, SELFPAY ==
[2024-10-22 14:12] LABS: % Basophils 0.2 % (0-2); % Eosinophils 0.2 % (0-6); % Immature Granulocytes 0.5 % (0-0.5); % Lymphocytes 19.5 % (20.5-51.1); % Monocytes 6.8 % (1.7-9.3); % Neutrophils 72.8 % (42.2-75.2); Absolute Lymphocytes 0.9 10^3/uL (1.2-3.4); Absolute Monocytes 0.3 10^3/uL (0.1-0.6); Absolute Neutrophils 3.2 10^3/uL (1.4-6.5); Hematocrit 35.4 % (37.0-47.0); Hemoglobin 12.2 g/dL (12.0-16.0); Mean Corp Hgb Conc. 34.5 g/dL (33.0-37.0); Mean Corpuscular Hgb 33.8 pg (27.0-31.0); Mean Corpuscular Volume 98.1 fL (81.0-99.0); Nucleated Red Blood Cells % 0 %; Red Blood Cell Count 3.61 10^6/uL (4.20-5.40); Red Cell Dist. Width 15.4 % (11.5-14.5); White Blood Cell Count 4.4 10^3/uL (4.8-10.8)
[2024-10-22 14:30] LABS: Mean Platelet Volume 9.9 fL (7.4-10.4); Platelet Count 87 10^3/uL (130-400)
[2024-10-22 14:31] LABS: ALT (SGPT) 23 U/L (0-35); AST (SGOT) 22 U/L (14-36); Albumin 4.5 g/dl (3.5-5.0); Alkaline Phosphatase 122 U/L (38-126); Blood Urea Nitrogen 14 mg/dl (7-17); Calcium 9.5 mg/dl (8.4-10.2); Carbon Dioxide 26 mmol/L (22-30); Chloride 92 mmol/L (98-107); Glucose 108 mg/dl (70-99); Potassium 4.6 mmol/L (3.5-5.1); Sodium 127 mmol/L (135-145); Total Bilirubin 0.6 mg/dl (0.2-1.3); Total Protein 6.8 g/dl (6.3-8.2); eGFR > 60.00
== END ==
LOC: REG 12:11
PROVIDERS: ATTENDING PHYSICIAN Internal Medicine Hematology & Oncology; FAMILY PHYSICIAN Nurse Practitioner Family
DX: C56.9 Malignant neoplasm of unspecified ovary (principal); Z80.3 Family history of malignant neoplasm of breast; Z80.0 Family history of malignant neoplasm of digestive organs; R18.0 Malignant ascites; J91.0 Malignant pleural effusion; G89.3 Neoplasm related pain (acute) (chronic); D75.839 Thrombocytosis, unspecified; Z72.0 Tobacco use; E46 Unspecified protein-calorie malnutrition; R10.2 Pelvic and perineal pain
CPT/HCPCS: 36415; 80053; 85025

== ENCOUNTER → 2024-10-30 12:22 | Outpatient (REF) | payer OTHER, SELFPAY ==
[2024-10-30 13:50] LABS: % Basophils 0.3 % (0-2); % Eosinophils 0.3 % (0-6); % Immature Granulocytes 0.5 % (0-0.5); % Lymphocytes 27.9 % (20.5-51.1); % Monocytes 16.4 % (1.7-9.3); % Neutrophils 54.6 % (42.2-75.2); Absolute Lymphocytes 1.6 10^3/uL (1.2-3.4); Absolute Monocytes 0.9 10^3/uL (0.1-0.6); Absolute Neutrophils 3.1 10^3/uL (1.4-6.5); Hematocrit 35.4 % (37.0-47.0); Hemoglobin 11.8 g/dL (12.0-16.0); Mean Corp Hgb Conc. 33.3 g/dL (33.0-37.0); Mean Corpuscular Hgb 33.7 pg (27.0-31.0); Mean Corpuscular Volume 101.1 fL (81.0-99.0); Mean Platelet Volume 9.9 fL (7.4-10.4); Nucleated Red Blood Cells % 0 %; Platelet Count 148 10^3/uL (130-400); Red Cell Dist. Width 17.2 % (11.5-14.5); White Blood Cell Count 5.7 10^3/uL (4.8-10.8)
[2024-10-30 14:29] LABS: ALT (SGPT) 20 U/L (0-35); AST (SGOT) 22 U/L (14-36); Albumin 4.2 g/dl (3.5-5.0); Alkaline Phosphatase 108 U/L (38-126); Blood Urea Nitrogen 23 mg/dl (7-17); Calcium 9.4 mg/dl (8.4-10.2); Carbon Dioxide 25 mmol/L (22-30); Chloride 98 mmol/L (98-107); Glucose 104 mg/dl (70-99); Potassium 4.6 mmol/L (3.5-5.1); Sodium 130 mmol/L (135-145); Total Bilirubin 0.8 mg/dl (0.2-1.3); Total Protein 6.4 g/dl (6.3-8.2); eGFR 50.86
== END ==
LOC: REG 12:22
PROVIDERS: ATTENDING PHYSICIAN Internal Medicine Hematology & Oncology; FAMILY PHYSICIAN Nurse Practitioner Family
DX: C56.9 Malignant neoplasm of unspecified ovary (principal); Z80.3 Family history of malignant neoplasm of breast; Z80.0 Family history of malignant neoplasm of digestive organs; R18.0 Malignant ascites; J91.0 Malignant pleural effusion; G89.3 Neoplasm related pain (acute) (chronic); D75.839 Thrombocytosis, unspecified; Z72.0 Tobacco use; E46 Unspecified protein-calorie malnutrition; R10.2 Pelvic and perineal pain
CPT/HCPCS: 36415; 80053; 85025

== ENCOUNTER → 2024-11-07 13:15 | Outpatient (REF) | payer OTHER, SELFPAY ==
[2024-11-07 14:21] LABS: % Basophils 0.4 % (0-2); % Eosinophils 0.4 % (0-6); % Immature Granulocytes 0.7 % (0-0.5); % Monocytes 7.2 % (1.7-9.3); % Neutrophils 59.3 % (42.2-75.2); Absolute Lymphocytes 1.4 10^3/uL (1.2-3.4); Absolute Monocytes 0.3 10^3/uL (0.1-0.6); Absolute Neutrophils 2.7 10^3/uL (1.4-6.5); Hematocrit 29.5 % (37.0-47.0); Hemoglobin 10.1 g/dL (12.0-16.0); Mean Corp Hgb Conc. 34.2 g/dL (33.0-37.0); Mean Corpuscular Hgb 34.4 pg (27.0-31.0); Mean Corpuscular Volume 100.3 fL (81.0-99.0); Mean Platelet Volume 9.4 fL (7.4-10.4); Nucleated Red Blood Cells % 0 %; Platelet Count 188 10^3/uL (130-400); Red Blood Cell Count 2.94 10^6/uL (4.20-5.40); Red Cell Dist. Width 16.7 % (11.5-14.5); White Blood Cell Count 4.5 10^3/uL (4.8-10.8)
[2024-11-07 14:58] LABS: ALT (SGPT) 20 U/L (0-35); AST (SGOT) 23 U/L (14-36); Albumin 3.7 g/dl (3.5-5.0); Alkaline Phosphatase 152 U/L (38-126); Blood Urea Nitrogen 15 mg/dl (7-17); Carbon Dioxide 25 mmol/L (22-30); Chloride 100 mmol/L (98-107); Glucose 82 mg/dl (70-99); Potassium 4.8 mmol/L (3.5-5.1); Sodium 131 mmol/L (135-145); Total Bilirubin 0.3 mg/dl (0.2-1.3); Total Protein 6.1 g/dl (6.3-8.2); eGFR > 60.00
[2024-11-07 19:57] LABS: CA 125 2590 U/mL (0-35)
== END ==
LOC: REG 13:15
PROVIDERS: ATTENDING PHYSICIAN Internal Medicine Hematology & Oncology; FAMILY PHYSICIAN Nurse Practitioner Family
DX: C56.9 Malignant neoplasm of unspecified ovary (principal); Z80.3 Family history of malignant neoplasm of breast; Z80.0 Family history of malignant neoplasm of digestive organs; R18.0 Malignant ascites; J91.0 Malignant pleural effusion; G89.3 Neoplasm related pain (acute) (chronic); D75.839 Thrombocytosis, unspecified; Z72.0 Tobacco use; E46 Unspecified protein-calorie malnutrition; R10.2 Pelvic and perineal pain
CPT/HCPCS: 36415; 80053; 85025; 86304

== ENCOUNTER → 2024-11-21 09:55 | Outpatient (REF) | payer OTHER, SELFPAY ==
[2024-11-21 11:34] LABS: % Immature Granulocytes 0.3 % (0-0.5); % Lymphocytes 35.4 % (20.5-51.1); % Neutrophils 52.3 % (42.2-75.2); Absolute Lymphocytes 1.3 10^3/uL (1.2-3.4); Absolute Monocytes 0.4 10^3/uL (0.1-0.6); Absolute Neutrophils 1.9 10^3/uL (1.4-6.5); Hematocrit 27.3 % (37.0-47.0); Hemoglobin 9.4 g/dL (12.0-16.0); Mean Corp Hgb Conc. 34.4 g/dL (33.0-37.0); Mean Corpuscular Hgb 34.7 pg (27.0-31.0); Mean Corpuscular Volume 100.7 fL (81.0-99.0); Mean Platelet Volume 10.1 fL (7.4-10.4); Nucleated Red Blood Cells % 0 %; Platelet Count 34 10^3/uL (130-400); Red Blood Cell Count 2.71 10^6/uL (4.20-5.40); Red Cell Dist. Width 17.8 % (11.5-14.5); White Blood Cell Count 3.7 10^3/uL (4.8-10.8)
[2024-11-21 11:44] LABS: ALT (SGPT) 22 U/L (0-35); AST (SGOT) 24 U/L (14-36); Albumin 4.2 g/dl (3.5-5.0); Alkaline Phosphatase 131 U/L (38-126); Blood Urea Nitrogen 14 mg/dl (7-17); Calcium 9.4 mg/dl (8.4-10.2); Carbon Dioxide 23 mmol/L (22-30); Chloride 100 mmol/L (98-107); Glucose 102 mg/dl (70-99); Sodium 134 mmol/L (135-145); Total Bilirubin 0.5 mg/dl (0.2-1.3); Total Protein 6.4 g/dl (6.3-8.2); eGFR > 60.00
[2024-11-21 19:26] LABS: CA 125 2870 U/mL (0-35)
== END ==
LOC: REG 09:55
PROVIDERS: ATTENDING PHYSICIAN Internal Medicine Hematology & Oncology; FAMILY PHYSICIAN Nurse Practitioner Family
DX: C56.9 Malignant neoplasm of unspecified ovary (principal); Z80.3 Family history of malignant neoplasm of breast; Z80.0 Family history of malignant neoplasm of digestive organs; R18.0 Malignant ascites; G89.3 Neoplasm related pain (acute) (chronic); D75.839 Thrombocytosis, unspecified; Z72.0 Tobacco use; E46 Unspecified protein-calorie malnutrition; R10.2 Pelvic and perineal pain
CPT/HCPCS: 36415; 80053; 85025; 86304

== ENCOUNTER → 2024-11-26 12:04 | Outpatient (REF) | payer OTHER, SELFPAY ==
[2024-11-26 13:31] LABS: % Eosinophils 0.3 % (0-6); % Immature Granulocytes 0.3 % (0-0.5); % Lymphocytes 36.7 % (20.5-51.1); % Monocytes 9.2 % (1.7-9.3); % Neutrophils 53.5 % (42.2-75.2); Absolute Lymphocytes 1.3 10^3/uL (1.2-3.4); Absolute Monocytes 0.3 10^3/uL (0.1-0.6); Absolute Neutrophils 1.9 10^3/uL (1.4-6.5); Hemoglobin 9.1 g/dL (12.0-16.0); Mean Corpuscular Hgb 34.5 pg (27.0-31.0); Mean Corpuscular Volume 98.5 fL (81.0-99.0); Mean Platelet Volume 10.5 fL (7.4-10.4); Nucleated Red Blood Cells % 0 %; Platelet Count 35 10^3/uL (130-400); Red Blood Cell Count 2.64 10^6/uL (4.20-5.40); Red Cell Dist. Width 18.5 % (11.5-14.5); White Blood Cell Count 3.6 10^3/uL (4.8-10.8)
[2024-11-26 13:33] LABS: ALT (SGPT) 25 U/L (0-35); AST (SGOT) 25 U/L (14-36); Albumin 3.8 g/dl (3.5-5.0); Alkaline Phosphatase 148 U/L (38-126); Blood Urea Nitrogen 15 mg/dl (7-17); Calcium 9.1 mg/dl (8.4-10.2); Carbon Dioxide 28 mmol/L (22-30); Chloride 102 mmol/L (98-107); Glucose 110 mg/dl (70-99); Potassium 3.9 mmol/L (3.5-5.1); Sodium 135 mmol/L (135-145); Total Bilirubin 0.4 mg/dl (0.2-1.3); Total Protein 6.1 g/dl (6.3-8.2); eGFR > 60.00
[2024-11-26 15:12] LABS: CA 125 2920 U/mL (0-35)
== END ==
LOC: REG 12:04
PROVIDERS: ATTENDING PHYSICIAN Internal Medicine Hematology & Oncology; FAMILY PHYSICIAN Nurse Practitioner Family
DX: C56.9 Malignant neoplasm of unspecified ovary (principal); Z80.3 Family history of malignant neoplasm of breast; Z80.0 Family history of malignant neoplasm of digestive organs; R18.0 Malignant ascites; J91.0 Malignant pleural effusion; G89.3 Neoplasm related pain (acute) (chronic); D75.839 Thrombocytosis, unspecified; Z72.0 Tobacco use; E46 Unspecified protein-calorie malnutrition; R10.2 Pelvic and perineal pain
CPT/HCPCS: 36415; 80053; 85025; 86304

== ENCOUNTER → 2024-12-03 13:29 | Outpatient (REF) | payer OTHER, SELFPAY ==
[2024-12-03 14:57] LABS: % Eosinophils 0.3 % (0-6); % Immature Granulocytes 0.3 % (0-0.5); % Lymphocytes 35.2 % (20.5-51.1); % Monocytes 13.2 % (1.7-9.3); Absolute Monocytes 0.4 10^3/uL (0.1-0.6); Absolute Neutrophils 1.5 10^3/uL (1.4-6.5); Hematocrit 24.8 % (37.0-47.0); Hemoglobin 8.5 g/dL (12.0-16.0); Mean Corp Hgb Conc. 34.3 g/dL (33.0-37.0); Mean Corpuscular Volume 102.1 fL (81.0-99.0); Mean Platelet Volume 10.7 fL (7.4-10.4); Nucleated Red Blood Cells % 0 %; Platelet Count 92 10^3/uL (130-400); Red Blood Cell Count 2.43 10^6/uL (4.20-5.40); Red Cell Dist. Width 20.9 % (11.5-14.5); White Blood Cell Count 2.9 10^3/uL (4.8-10.8)
[2024-12-03 14:59] LABS: ALT (SGPT) 34 U/L (0-35); AST (SGOT) 33 U/L (14-36); Albumin 3.9 g/dl (3.5-5.0); Alkaline Phosphatase 201 U/L (38-126); Blood Urea Nitrogen 12 mg/dl (7-17); Calcium 8.9 mg/dl (8.4-10.2); Carbon Dioxide 24 mmol/L (22-30); Chloride 109 mmol/L (98-107); Glucose 104 mg/dl (70-99); Potassium 3.8 mmol/L (3.5-5.1); Sodium 141 mmol/L (135-145); Total Bilirubin 0.4 mg/dl (0.2-1.3); Total Protein 6.1 g/dl (6.3-8.2); eGFR > 60.00
[2024-12-03 16:17] LABS: CA 125 3450 U/mL (0-35)
== END ==
LOC: REG 13:29
PROVIDERS: ATTENDING PHYSICIAN Internal Medicine Hematology & Oncology; FAMILY PHYSICIAN Nurse Practitioner Family
DX: C56.9 Malignant neoplasm of unspecified ovary (principal); Z80.3 Family history of malignant neoplasm of breast; Z80.0 Family history of malignant neoplasm of digestive organs; R18.0 Malignant ascites; J91.0 Malignant pleural effusion; G89.3 Neoplasm related pain (acute) (chronic); D75.839 Thrombocytosis, unspecified; Z72.0 Tobacco use; E46 Unspecified protein-calorie malnutrition; R10.2 Pelvic and perineal pain
CPT/HCPCS: 36415; 80053; 85025; 86304

== ENCOUNTER → 2024-12-06 10:29 | Outpatient (REF) | payer OTHER, SELFPAY ==
[2024-12-06 10:51] VITALS: BP 136/68; BP_SYST 92
== END ==
LOC: RADI 10:29
PROVIDERS: ATTENDING PHYSICIAN Internal Medicine Hematology & Oncology; FAMILY PHYSICIAN Family Medicine
DX: C56.9 Malignant neoplasm of unspecified ovary (principal); R18.0 Malignant ascites; Z53.8 Procedure and treatment not carried out for other reasons
CPT/HCPCS: 76705

== ENCOUNTER → 2024-12-10 11:17 | Outpatient (REF) | payer OTHER, SELFPAY ==
[2024-12-10 13:18] LABS: % Basophils 0.3 % (0-2); % Eosinophils 0.5 % (0-6); % Immature Granulocytes 0.5 % (0-0.5); % Lymphocytes 29.7 % (20.5-51.1); % Monocytes 11.3 % (1.7-9.3); % Neutrophils 57.7 % (42.2-75.2); Absolute Lymphocytes 1.1 10^3/uL (1.2-3.4); Absolute Monocytes 0.4 10^3/uL (0.1-0.6); Absolute Neutrophils 2.2 10^3/uL (1.4-6.5); Hematocrit 26.6 % (37.0-47.0); Hemoglobin 9.1 g/dL (12.0-16.0); Mean Corp Hgb Conc. 34.2 g/dL (33.0-37.0); Mean Corpuscular Hgb 35.7 pg (27.0-31.0); Mean Corpuscular Volume 104.3 fL (81.0-99.0); Mean Platelet Volume 10.5 fL (7.4-10.4); Nucleated Red Blood Cells % 0 %; Platelet Count 142 10^3/uL (130-400); Red Blood Cell Count 2.55 10^6/uL (4.20-5.40); Red Cell Dist. Width 21.6 % (11.5-14.5); White Blood Cell Count 3.8 10^3/uL (4.8-10.8)
[2024-12-10 14:21] LABS: ALT (SGPT) 30 U/L (0-35); AST (SGOT) 35 U/L (14-36); Alkaline Phosphatase 181 U/L (38-126); Blood Urea Nitrogen 16 mg/dl (7-17); Calcium 9.6 mg/dl (8.4-10.2); Carbon Dioxide 27 mmol/L (22-30); Chloride 103 mmol/L (98-107); Glucose 109 mg/dl (70-99); Potassium 4.2 mmol/L (3.5-5.1); Sodium 138 mmol/L (135-145); Total Bilirubin 0.7 mg/dl (0.2-1.3); Total Protein 6.5 g/dl (6.3-8.2); eGFR > 60.00
[2024-12-10 14:59] LABS: CA 125 4640 U/mL (0-35)
== END ==
LOC: REG 11:17
PROVIDERS: ATTENDING PHYSICIAN Internal Medicine Hematology & Oncology
DX: C56.9 Malignant neoplasm of unspecified ovary (principal); Z80.3 Family history of malignant neoplasm of breast; Z80.0 Family history of malignant neoplasm of digestive organs; R18.0 Malignant ascites; J91.0 Malignant pleural effusion; G89.3 Neoplasm related pain (acute) (chronic); D75.839 Thrombocytosis, unspecified; Z72.0 Tobacco use; A00-B99 Certain infectious and parasitic diseases; R10.2 Pelvic and perineal pain
CPT/HCPCS: 36415; 80053; 85025; 86304

== ENCOUNTER → 2024-12-19 11:46 | Outpatient (REF) | payer OTHER, SELFPAY ==
[2024-12-19 13:03] LABS: % Basophils 0.3 % (0-2); % Eosinophils 0.3 % (0-6); % Immature Granulocytes 0.3 % (0-0.5); % Lymphocytes 38.2 % (20.5-51.1); % Monocytes 10.4 % (1.7-9.3); % Neutrophils 50.5 % (42.2-75.2); Absolute Lymphocytes 1.1 10^3/uL (1.2-3.4); Absolute Monocytes 0.3 10^3/uL (0.1-0.6); Absolute Neutrophils 1.5 10^3/uL (1.4-6.5); Hematocrit 21.3 % (37.0-47.0); Hemoglobin 7.5 g/dL (12.0-16.0); Mean Corp Hgb Conc. 35.2 g/dL (33.0-37.0); Mean Corpuscular Hgb 37.3 pg (27.0-31.0); Mean Platelet Volume 10.7 fL (7.4-10.4); Nucleated Red Blood Cells % 0 %; Platelet Count 60 10^3/uL (130-400); Red Blood Cell Count 2.01 10^6/uL (4.20-5.40); Red Cell Dist. Width 21.3 % (11.5-14.5); White Blood Cell Count 2.9 10^3/uL (4.8-10.8)
[2024-12-19 13:08] LABS: ALT (SGPT) 28 U/L (0-35); AST (SGOT) 32 U/L (14-36); Alkaline Phosphatase 248 U/L (38-126); Blood Urea Nitrogen 11 mg/dl (7-17); Carbon Dioxide 22 mmol/L (22-30); Chloride 105 mmol/L (98-107); Glucose 99 mg/dl (70-99); Potassium 3.9 mmol/L (3.5-5.1); Sodium 138 mmol/L (135-145); Total Bilirubin 0.5 mg/dl (0.2-1.3); Total Protein 6.2 g/dl (6.3-8.2); eGFR > 60.00
[2024-12-19 19:17] LABS: CA 125 5810 U/mL (0-35)
== END ==
LOC: REG 11:46
PROVIDERS: ATTENDING PHYSICIAN Internal Medicine Hematology & Oncology; FAMILY PHYSICIAN Nurse Practitioner Family
DX: C56.9 Malignant neoplasm of unspecified ovary (principal); Z80.3 Family history of malignant neoplasm of breast; Z80.0 Family history of malignant neoplasm of digestive organs; R18.0 Malignant ascites; J91.0 Malignant pleural effusion; G89.3 Neoplasm related pain (acute) (chronic); D75.839 Thrombocytosis, unspecified; Z72.0 Tobacco use; E46 Unspecified protein-calorie malnutrition; R10.2 Pelvic and perineal pain
CPT/HCPCS: 36415; 80053; 85025; 86304

== ENCOUNTER → 2024-12-24 12:03 | Outpatient (REF) | payer OTHER, SELFPAY ==
[2024-12-24 13:06] LABS: % Immature Granulocytes 0.4 % (0-0.5); % Monocytes 14.9 % (1.7-9.3); % Neutrophils 48.7 % (42.2-75.2); Absolute Monocytes 0.4 10^3/uL (0.1-0.6); Absolute Neutrophils 1.3 10^3/uL (1.4-6.5); Hematocrit 21.8 % (37.0-47.0); Hemoglobin 7.6 g/dL (12.0-16.0); Mean Corp Hgb Conc. 34.9 g/dL (33.0-37.0); Mean Corpuscular Hgb 37.8 pg (27.0-31.0); Mean Corpuscular Volume 108.5 fL (81.0-99.0); Nucleated Red Blood Cells % 0 %; Platelet Count 47 10^3/uL (130-400); Red Blood Cell Count 2.01 10^6/uL (4.20-5.40); Red Cell Dist. Width 21.7 % (11.5-14.5); White Blood Cell Count 2.8 10^3/uL (4.8-10.8)
[2024-12-24 13:29] LABS: ALT (SGPT) 27 U/L (0-35); AST (SGOT) 30 U/L (14-36); Albumin 4.3 g/dl (3.5-5.0); Alkaline Phosphatase 230 U/L (38-126); Blood Urea Nitrogen 12 mg/dl (7-17); Calcium 9.1 mg/dl (8.4-10.2); Carbon Dioxide 25 mmol/L (22-30); Chloride 104 mmol/L (98-107); Glucose 95 mg/dl (70-99); Iron 117 ug/dl (37-170); Potassium 4.2 mmol/L (3.5-5.1); Sodium 138 mmol/L (135-145); Total Bilirubin 0.5 mg/dl (0.2-1.3); Total Protein 6.4 g/dl (6.3-8.2); eGFR > 60.00
[2024-12-24 13:38] LABS: Percent Saturation 43 % (20-50); Total Iron Binding Capacity 266 ug/dl (265-497)
[2024-12-24 14:19] LABS: Folate 11.1 ng/ml (2.76-20); Vitamin B12 874 pg/ml (239-931)
[2024-12-24 14:31] LABS: CA 125 7860 U/mL (0-35)
== END ==
LOC: REG 12:03
PROVIDERS: ATTENDING PHYSICIAN Internal Medicine Hematology & Oncology; FAMILY PHYSICIAN Nurse Practitioner Family; REFERRING PHYSICIAN Nurse Practitioner Primary Care
DX: C56.9 Malignant neoplasm of unspecified ovary (principal); Z80.3 Family history of malignant neoplasm of breast; Z80.0 Family history of malignant neoplasm of digestive organs; R18.0 Malignant ascites; J91.0 Malignant pleural effusion; G89.3 Neoplasm related pain (acute) (chronic); D75.839 Thrombocytosis, unspecified; Z72.0 Tobacco use; E46 Unspecified protein-calorie malnutrition; R10.2 Pelvic and perineal pain
CPT/HCPCS: 36415; 80053; 82607; 82728; 82746; 83540; 83550; 83921; 85025; 86304; 86850; 86900; 86901; 86920

== ENCOUNTER → 2024-12-25 12:56 | Outpatient (REF) | payer OTHER, SELFPAY | LOC: RAD 12:56 | PROVIDERS: ATTENDING PHYSICIAN Obstetrics & Gynecology Gynecologic Oncology; FAMILY PHYSICIAN Nurse Practitioner Family | DX: R10.2 Pelvic and perineal pain (principal) | CPT/HCPCS: 71260; 74177; Q9967 ==

== ENCOUNTER 2024-12-27 10:45 | Outpatient (RCR) | payer OTHER, SELFPAY ==
[2024-12-27 10:50] VITALS: BP 95/61
[2024-12-27 11:11] VITALS: BP 95/61
[2024-12-27 11:28] VITALS: BP 115/78
[2024-12-27 13:38] VITALS: BP 123/80
== END 2025-01-01 23:59 | disposition home or self-care (01) ==
LOC: OID 10:45
PROVIDERS: ATTENDING PHYSICIAN Internal Medicine Hematology & Oncology; FAMILY PHYSICIAN Nurse Practitioner Family
DX: C56.9 Malignant neoplasm of unspecified ovary (principal)
CPT/HCPCS: 36415; 36430; 86850; 86900; 86901; 86920; P9016

== ENCOUNTER → 2024-12-30 12:17 | Outpatient (REF) | payer OTHER, SELFPAY ==
[2024-12-30 13:18] LABS: % Basophils 0.2 % (0-2); % Eosinophils 0.5 % (0-6); % Immature Granulocytes 0.2 % (0-0.5); % Lymphocytes 28.6 % (20.5-51.1); % Monocytes 14.8 % (1.7-9.3); % Neutrophils 55.7 % (42.2-75.2); Absolute Lymphocytes 1.2 10^3/uL (1.2-3.4); Absolute Monocytes 0.6 10^3/uL (0.1-0.6); Absolute Neutrophils 2.3 10^3/uL (1.4-6.5); Hematocrit 28.9 % (37.0-47.0); Mean Corp Hgb Conc. 34.6 g/dL (33.0-37.0); Mean Corpuscular Hgb 35.3 pg (27.0-31.0); Mean Corpuscular Volume 102.1 fL (81.0-99.0); Nucleated Red Blood Cells % 0 %; Platelet Count 32 10^3/uL (130-400); Red Blood Cell Count 2.83 10^6/uL (4.20-5.40); Red Cell Dist. Width 22.3 % (11.5-14.5); White Blood Cell Count 4.1 10^3/uL (4.8-10.8)
[2024-12-30 13:27] LABS: ALT (SGPT) 28 U/L (0-35); AST (SGOT) 33 U/L (14-36); Albumin 4.1 g/dl (3.5-5.0); Alkaline Phosphatase 255 U/L (38-126); Blood Urea Nitrogen 16 mg/dl (7-17); Calcium 9.2 mg/dl (8.4-10.2); Carbon Dioxide 25 mmol/L (22-30); Chloride 101 mmol/L (98-107); Glucose 91 mg/dl (70-99); Potassium 3.8 mmol/L (3.5-5.1); Sodium 138 mmol/L (135-145); Total Bilirubin 0.9 mg/dl (0.2-1.3); Total Protein 6.5 g/dl (6.3-8.2); eGFR 50.86
[2024-12-30 15:12] LABS: Anisocytosis 1+; Macrocytosis 1+; Normal RBC Morphology No
[2024-12-30 15:13] LABS: Hypochromasia 1+
[2024-12-30 19:34] LABS: CA 125 10600 U/mL (0-35)
== END ==
LOC: REG 12:17
PROVIDERS: ATTENDING PHYSICIAN Internal Medicine Hematology & Oncology; FAMILY PHYSICIAN Nurse Practitioner Family
DX: C56.9 Malignant neoplasm of unspecified ovary (principal); Z80.3 Family history of malignant neoplasm of breast; Z80.0 Family history of malignant neoplasm of digestive organs; R18.0 Malignant ascites; J91.0 Malignant pleural effusion; G89.3 Neoplasm related pain (acute) (chronic); D75.839 Thrombocytosis, unspecified; Z72.0 Tobacco use; E46 Unspecified protein-calorie malnutrition; R10.2 Pelvic and perineal pain
CPT/HCPCS: 36415; 80053; 85025; 86304

== ENCOUNTER → 2025-01-08 11:55 | Outpatient (REF) | payer OTHER, SELFPAY ==
[2025-01-08 12:58] LABS: % Basophils 0.2 % (0-2); % Eosinophils 0.7 % (0-6); % Immature Granulocytes 0.2 % (0-0.5); % Lymphocytes 23.8 % (20.5-51.1); % Monocytes 11.5 % (1.7-9.3); % Neutrophils 63.6 % (42.2-75.2); Absolute Monocytes 0.5 10^3/uL (0.1-0.6); Absolute Neutrophils 2.7 10^3/uL (1.4-6.5); Hematocrit 28.7 % (37.0-47.0); Hemoglobin 9.8 g/dL (12.0-16.0); Mean Corp Hgb Conc. 34.1 g/dL (33.0-37.0); Mean Corpuscular Hgb 35.6 pg (27.0-31.0); Mean Corpuscular Volume 104.4 fL (81.0-99.0); Mean Platelet Volume 11.7 fL (7.4-10.4); Nucleated Red Blood Cells % 0 %; Platelet Count 67 10^3/uL (130-400); Red Blood Cell Count 2.75 10^6/uL (4.20-5.40); Red Cell Dist. Width 20.8 % (11.5-14.5); White Blood Cell Count 4.3 10^3/uL (4.8-10.8)
[2025-01-08 15:37] LABS: ALT (SGPT) 37 U/L (0-35); AST (SGOT) 47 U/L (14-36); Albumin 3.9 g/dl (3.5-5.0); Alkaline Phosphatase 485 U/L (38-126); Blood Urea Nitrogen 13 mg/dl (7-17); Calcium 9.5 mg/dl (8.4-10.2); Carbon Dioxide 25 mmol/L (22-30); Chloride 103 mmol/L (98-107); Glucose 120 mg/dl (70-99); Sodium 138 mmol/L (135-145); Total Bilirubin 0.8 mg/dl (0.2-1.3); Total Protein 6.6 g/dl (6.3-8.2); eGFR > 60.00
[2025-01-09 20:29] LABS: CA 125 16300 U/mL (0-35)
== END ==
LOC: REG 11:55
PROVIDERS: ATTENDING PHYSICIAN Internal Medicine Hematology & Oncology; FAMILY PHYSICIAN Nurse Practitioner Family
DX: C56.9 Malignant neoplasm of unspecified ovary (principal); Z80.3 Family history of malignant neoplasm of breast; Z80.0 Family history of malignant neoplasm of digestive organs; R18.0 Malignant ascites; J91.0 Malignant pleural effusion; G89.3 Neoplasm related pain (acute) (chronic); D75.839 Thrombocytosis, unspecified; Z72.0 Tobacco use; A00-B99 Certain infectious and parasitic diseases; R10.2 Pelvic and perineal pain
CPT/HCPCS: 36415; 80053; 85025; 86304

== ENCOUNTER → 2025-01-15 11:23 | Outpatient (REF) | payer OTHER, SELFPAY ==
[2025-01-15 13:43] LABS: % Basophils 0.2 % (0-2); % Eosinophils 0.8 % (0-6); % Immature Granulocytes 0.4 % (0-0.5); % Lymphocytes 21.7 % (20.5-51.1); % Monocytes 15.1 % (1.7-9.3); % Neutrophils 61.8 % (42.2-75.2); Absolute Lymphocytes 1.1 10^3/uL (1.2-3.4); Absolute Monocytes 0.7 10^3/uL (0.1-0.6); Hematocrit 27.8 % (37.0-47.0); Hemoglobin 9.2 g/dL (12.0-16.0); Mean Corp Hgb Conc. 33.1 g/dL (33.0-37.0); Mean Corpuscular Hgb 35.9 pg (27.0-31.0); Mean Corpuscular Volume 108.6 fL (81.0-99.0); Mean Platelet Volume 10.6 fL (7.4-10.4); Nucleated Red Blood Cells % 0 %; Platelet Count 126 10^3/uL (130-400); Red Blood Cell Count 2.56 10^6/uL (4.20-5.40); Red Cell Dist. Width 20.8 % (11.5-14.5); White Blood Cell Count 4.9 10^3/uL (4.8-10.8)
[2025-01-15 14:09] LABS: ALT (SGPT) 38 U/L (0-35); AST (SGOT) 39 U/L (14-36); Albumin 4.1 g/dl (3.5-5.0); Alkaline Phosphatase 661 U/L (38-126); Blood Urea Nitrogen 12 mg/dl (7-17); Calcium 9.2 mg/dl (8.4-10.2); Carbon Dioxide 24 mmol/L (22-30); Chloride 106 mmol/L (98-107); Glucose 116 mg/dl (70-99); Potassium 3.9 mmol/L (3.5-5.1); Sodium 137 mmol/L (135-145); Total Bilirubin 0.7 mg/dl (0.2-1.3); Total Protein 6.5 g/dl (6.3-8.2); eGFR > 60.00
[2025-01-15 16:01] LABS: CA 125 18100 U/mL (0-35)
== END ==
LOC: REG 11:23
PROVIDERS: ATTENDING PHYSICIAN Internal Medicine Hematology & Oncology; FAMILY PHYSICIAN Nurse Practitioner Family
DX: C56.9 Malignant neoplasm of unspecified ovary (principal); Z80.3 Family history of malignant neoplasm of breast; Z80.0 Family history of malignant neoplasm of digestive organs; R18.0 Malignant ascites; J81.0 Acute pulmonary edema; G89.3 Neoplasm related pain (acute) (chronic); D75.839 Thrombocytosis, unspecified; Z72.0 Tobacco use; E46 Unspecified protein-calorie malnutrition; R10.2 Pelvic and perineal pain
CPT/HCPCS: 36415; 80053; 85025; 86304

== ENCOUNTER → 2025-01-23 12:36 | Outpatient (REF) | payer OTHER, SELFPAY ==
[2025-01-23 13:24] LABS: % Basophils 0.2 % (0-2); % Eosinophils 0.5 % (0-6); % Immature Granulocytes 0.5 % (0-0.5); % Lymphocytes 16.4 % (20.5-51.1); % Monocytes 14.5 % (1.7-9.3); % Neutrophils 67.9 % (42.2-75.2); Absolute Lymphocytes 1.1 10^3/uL (1.2-3.4); Absolute Monocytes 0.9 10^3/uL (0.1-0.6); Absolute Neutrophils 4.4 10^3/uL (1.4-6.5); Hematocrit 27.6 % (37.0-47.0); Hemoglobin 9.2 g/dL (12.0-16.0); Mean Corp Hgb Conc. 33.3 g/dL (33.0-37.0); Mean Corpuscular Hgb 35.4 pg (27.0-31.0); Mean Corpuscular Volume 106.2 fL (81.0-99.0); Mean Platelet Volume 10.6 fL (7.4-10.4); Nucleated Red Blood Cells % 0 %; Platelet Count 122 10^3/uL (130-400); Red Cell Dist. Width 19.9 % (11.5-14.5); White Blood Cell Count 6.4 10^3/uL (4.8-10.8)
[2025-01-23 14:32] LABS: ALT (SGPT) 42 U/L (0-35); AST (SGOT) 61 U/L (14-36); Alkaline Phosphatase 686 U/L (38-126); Blood Urea Nitrogen 18 mg/dl (7-17); Calcium 9.2 mg/dl (8.4-10.2); Carbon Dioxide 25 mmol/L (22-30); Chloride 104 mmol/L (98-107); Glucose 124 mg/dl (70-99); Potassium 3.9 mmol/L (3.5-5.1); Sodium 137 mmol/L (135-145); Total Bilirubin 0.5 mg/dl (0.2-1.3); Total Protein 6.8 g/dl (6.3-8.2); eGFR 50.86
[2025-01-23 19:39] LABS: CA 125 > 20000 U/mL (0-35)
== END ==
LOC: REG 12:36
PROVIDERS: ATTENDING PHYSICIAN Internal Medicine Hematology & Oncology; FAMILY PHYSICIAN Nurse Practitioner Family
DX: C56.9 Malignant neoplasm of unspecified ovary (principal); Z80.3 Family history of malignant neoplasm of breast; Z80.0 Family history of malignant neoplasm of digestive organs; R18.0 Malignant ascites; G89.3 Neoplasm related pain (acute) (chronic); D75.839 Thrombocytosis, unspecified; Z72.0 Tobacco use; E46 Unspecified protein-calorie malnutrition; R10.2 Pelvic and perineal pain
CPT/HCPCS: 36415; 80053; 85025; 86304

== ENCOUNTER → 2025-01-29 13:00 | Outpatient (REF) | payer OTHER, SELFPAY ==
[2025-01-30 15:40] LABS: Blood Urea Nitrogen 8 mg/dl (7-17); Glucose 104 mg/dl (70-99); Sodium 139 mmol/L (135-145); eGFR > 60.00
[2025-01-30 15:41] LABS: ALT (SGPT) 30 U/L (0-35); AST (SGOT) 41 U/L (14-36); Albumin 3.8 g/dl (3.5-5.0); Alkaline Phosphatase 567 U/L (38-126); Calcium 9.2 mg/dl (8.4-10.2); Carbon Dioxide 26 mmol/L (22-30); Chloride 106 mmol/L (98-107); Potassium 3.9 mmol/L (3.5-5.1); Total Bilirubin 0.3 mg/dl (0.2-1.3); Total Protein 6.6 g/dl (6.3-8.2)
[2025-01-30 19:15] LABS: CA 125 9300 U/mL (0-35)
== END ==
LOC: REG 13:00
PROVIDERS: ATTENDING PHYSICIAN Internal Medicine Hematology & Oncology
DX: C56.9 Malignant neoplasm of unspecified ovary (principal); Z80.3 Family history of malignant neoplasm of breast; R18.0 Malignant ascites; D75.839 Thrombocytosis, unspecified; E46 Unspecified protein-calorie malnutrition; R10.2 Pelvic and perineal pain; Z80.0 Family history of malignant neoplasm of digestive organs
CPT/HCPCS: 80053; 86304

== ENCOUNTER → 2025-02-05 12:11 | Outpatient (REF) | payer OTHER, SELFPAY ==
[2025-02-05 13:09] LABS: % Basophils 0.4 % (0-2); % Immature Granulocytes 0.3 % (0-0.5); % Lymphocytes 19.2 % (20.5-51.1); % Monocytes 8.7 % (1.7-9.3); % Neutrophils 70.4 % (42.2-75.2); Absolute Eosinophils 0.1 10^3/uL (0-0.7); Absolute Lymphocytes 1.3 10^3/uL (1.2-3.4); Absolute Monocytes 0.6 10^3/uL (0.1-0.6); Absolute Neutrophils 4.9 10^3/uL (1.4-6.5); Hematocrit 31.5 % (37.0-47.0); Hemoglobin 10.3 g/dL (12.0-16.0); Mean Corp Hgb Conc. 32.7 g/dL (33.0-37.0); Mean Corpuscular Hgb 36.7 pg (27.0-31.0); Mean Corpuscular Volume 112.1 fL (81.0-99.0); Mean Platelet Volume 10.6 fL (7.4-10.4); Nucleated Red Blood Cells % 0 %; Platelet Count 151 10^3/uL (130-400); Red Blood Cell Count 2.81 10^6/uL (4.20-5.40); Red Cell Dist. Width 20.8 % (11.5-14.5); White Blood Cell Count 6.9 10^3/uL (4.8-10.8)
[2025-02-05 14:24] LABS: ALT (SGPT) 19 U/L (0-35); AST (SGOT) 29 U/L (14-36); Albumin 4.2 g/dl (3.5-5.0); Alkaline Phosphatase 372 U/L (38-126); Blood Urea Nitrogen 10 mg/dl (7-17); Calcium 9.1 mg/dl (8.4-10.2); Carbon Dioxide 25 mmol/L (22-30); Chloride 107 mmol/L (98-107); Glucose 94 mg/dl (70-99); Potassium 4.2 mmol/L (3.5-5.1); Sodium 140 mmol/L (135-145); Total Bilirubin 0.5 mg/dl (0.2-1.3); Total Protein 6.9 g/dl (6.3-8.2); eGFR > 60.00
[2025-02-06 20:16] LABS: CA 125 3060 U/mL (0-35)
== END ==
LOC: REG 12:11
PROVIDERS: ATTENDING PHYSICIAN Internal Medicine Hematology & Oncology; FAMILY PHYSICIAN Nurse Practitioner Family
DX: C56.9 Malignant neoplasm of unspecified ovary (principal); Z83.3 Family history of diabetes mellitus; Z80.0 Family history of malignant neoplasm of digestive organs; R18.0 Malignant ascites; G89.3 Neoplasm related pain (acute) (chronic); D75.839 Thrombocytosis, unspecified; Z72.0 Tobacco use; R10.2 Pelvic and perineal pain; E46 Unspecified protein-calorie malnutrition
CPT/HCPCS: 36415; 80053; 85025; 86304

== ENCOUNTER → 2025-02-12 12:29 | Outpatient (REF) | payer OTHER, SELFPAY ==
[2025-02-12 14:21] LABS: % Basophils 0.4 % (0-2); % Eosinophils 2.5 % (0-6); % Immature Granulocytes 0.9 % (0-0.5); % Lymphocytes 20.3 % (20.5-51.1); % Monocytes 11.5 % (1.7-9.3); % Neutrophils 64.4 % (42.2-75.2); Absolute Eosinophils 0.2 10^3/uL (0-0.7); Absolute Immature Granulocytes 0.1 10^3/uL (0-0.05); Absolute Lymphocytes 1.6 10^3/uL (1.2-3.4); Absolute Monocytes 0.9 10^3/uL (0.1-0.6); Absolute Neutrophils 5.1 10^3/uL (1.4-6.5); Hematocrit 34.2 % (37.0-47.0); Hemoglobin 11.8 g/dL (12.0-16.0); Mean Corp Hgb Conc. 34.5 g/dL (33.0-37.0); Mean Corpuscular Hgb 37.1 pg (27.0-31.0); Mean Corpuscular Volume 107.5 fL (81.0-99.0); Mean Platelet Volume 11.4 fL (7.4-10.4); Nucleated Red Blood Cells % 0 %; Platelet Count 94 10^3/uL (130-400); Red Blood Cell Count 3.18 10^6/uL (4.20-5.40); Red Cell Dist. Width 18.6 % (11.5-14.5)
[2025-02-12 15:51] LABS: ALT (SGPT) 30 U/L (0-35); AST (SGOT) 39 U/L (14-36); Alkaline Phosphatase 377 U/L (38-126); Blood Urea Nitrogen 11 mg/dl (7-17); Calcium 9.2 mg/dl (8.4-10.2); Carbon Dioxide 22 mmol/L (22-30); Chloride 100 mmol/L (98-107); Glucose 106 mg/dl (70-99); Potassium 4.2 mmol/L (3.5-5.1); Sodium 129 mmol/L (135-145); Total Bilirubin 0.5 mg/dl (0.2-1.3); Total Protein 6.7 g/dl (6.3-8.2); eGFR > 60.00
[2025-02-14 20:49] LABS: CA 125 1610 U/mL (0-35)
== END ==
LOC: REG 12:29
PROVIDERS: ATTENDING PHYSICIAN Internal Medicine Hematology & Oncology; FAMILY PHYSICIAN Nurse Practitioner Family
DX: C56.9 Malignant neoplasm of unspecified ovary (principal); C56.3 Malignant neoplasm of bilateral ovaries; Z80.3 Family history of malignant neoplasm of breast; Z80.0 Family history of malignant neoplasm of digestive organs; R18.0 Malignant ascites; J91.0 Malignant pleural effusion; G89.3 Neoplasm related pain (acute) (chronic); D75.839 Thrombocytosis, unspecified; Z72.0 Tobacco use; E46 Unspecified protein-calorie malnutrition; R10.2 Pelvic and perineal pain
CPT/HCPCS: 36415; 80053; 85025; 86304

== ENCOUNTER → 2025-02-19 11:10 | Outpatient (REF) | payer OTHER, SELFPAY ==
[2025-02-19 12:09] LABS: % Basophils 0.7 % (0-2); % Eosinophils 2.3 % (0-6); % Immature Granulocytes 0.3 % (0-0.5); % Lymphocytes 23.9 % (20.5-51.1); % Monocytes 10.2 % (1.7-9.3); % Neutrophils 62.6 % (42.2-75.2); Absolute Eosinophils 0.1 10^3/uL (0-0.7); Absolute Lymphocytes 1.4 10^3/uL (1.2-3.4); Absolute Monocytes 0.6 10^3/uL (0.1-0.6); Absolute Neutrophils 3.7 10^3/uL (1.4-6.5); Hematocrit 34.6 % (37.0-47.0); Hemoglobin 11.5 g/dL (12.0-16.0); Mean Corp Hgb Conc. 33.2 g/dL (33.0-37.0); Mean Corpuscular Hgb 35.6 pg (27.0-31.0); Mean Corpuscular Volume 107.1 fL (81.0-99.0); Mean Platelet Volume 9.6 fL (7.4-10.4); Nucleated Red Blood Cells % 0 %; Platelet Count 110 10^3/uL (130-400); Red Blood Cell Count 3.23 10^6/uL (4.20-5.40); Red Cell Dist. Width 17.6 % (11.5-14.5)
[2025-02-19 12:44] LABS: ALT (SGPT) 25 U/L (0-35); AST (SGOT) 35 U/L (14-36); Albumin 4.1 g/dl (3.5-5.0); Alkaline Phosphatase 339 U/L (38-126); Blood Urea Nitrogen 11 mg/dl (7-17); Calcium 9.6 mg/dl (8.4-10.2); Carbon Dioxide 27 mmol/L (22-30); Chloride 100 mmol/L (98-107); Glucose 89 mg/dl (70-99); Potassium 4.1 mmol/L (3.5-5.1); Sodium 133 mmol/L (135-145); Total Bilirubin 0.6 mg/dl (0.2-1.3); Total Protein 6.9 g/dl (6.3-8.2); eGFR > 60.00
[2025-02-21 13:27] LABS: CA 125 762 U/mL (0-35)
== END ==
LOC: REG 11:10
PROVIDERS: ATTENDING PHYSICIAN Internal Medicine Hematology & Oncology; FAMILY PHYSICIAN Nurse Practitioner Family
DX: C56.9 Malignant neoplasm of unspecified ovary (principal); C56.3 Malignant neoplasm of bilateral ovaries; Z80.3 Family history of malignant neoplasm of breast; Z80.0 Family history of malignant neoplasm of digestive organs; R18.0 Malignant ascites; J91.0 Malignant pleural effusion; G89.3 Neoplasm related pain (acute) (chronic); D75.839 Thrombocytosis, unspecified; Z72.0 Tobacco use; E46 Unspecified protein-calorie malnutrition; R10.2 Pelvic and perineal pain
CPT/HCPCS: 36415; 80053; 85025; 86304

== ENCOUNTER → 2025-02-21 12:57 | Outpatient (REF) | payer OTHER, SELFPAY | LOC: REG 12:57 | PROVIDERS: ATTENDING PHYSICIAN Internal Medicine Hematology & Oncology; FAMILY PHYSICIAN Nurse Practitioner Family | DX: C56.9 Malignant neoplasm of unspecified ovary (principal); C56.3 Malignant neoplasm of bilateral ovaries; Z80.3 Family history of malignant neoplasm of breast; Z80.0 Family history of malignant neoplasm of digestive organs; R18.0 Malignant ascites; J91.0 Malignant pleural effusion; G89.3 Neoplasm related pain (acute) (chronic); D75.839 Thrombocytosis, unspecified; Z72.0 Tobacco use; E46 Unspecified protein-calorie malnutrition; R10.2 Pelvic and perineal pain | CPT/HCPCS: 36415; 86618 ==

== ENCOUNTER → 2025-02-27 10:11 | Outpatient (REF) | payer OTHER, SELFPAY ==
[2025-02-27 11:03] LABS: % Basophils 0.7 % (0-2); % Eosinophils 2.9 % (0-6); % Immature Granulocytes 0.2 % (0-0.5); % Lymphocytes 27.1 % (20.5-51.1); % Monocytes 8.7 % (1.7-9.3); % Neutrophils 60.4 % (42.2-75.2); Absolute Eosinophils 0.2 10^3/uL (0-0.7); Absolute Lymphocytes 1.5 10^3/uL (1.2-3.4); Absolute Monocytes 0.5 10^3/uL (0.1-0.6); Absolute Neutrophils 3.3 10^3/uL (1.4-6.5); Hematocrit 33.6 % (37.0-47.0); Hemoglobin 11.5 g/dL (12.0-16.0); Mean Corp Hgb Conc. 34.2 g/dL (33.0-37.0); Mean Corpuscular Hgb 36.2 pg (27.0-31.0); Mean Corpuscular Volume 105.7 fL (81.0-99.0); Mean Platelet Volume 10.8 fL (7.4-10.4); Nucleated Red Blood Cells % 0 %; Platelet Count 104 10^3/uL (130-400); Red Blood Cell Count 3.18 10^6/uL (4.20-5.40); Red Cell Dist. Width 16.6 % (11.5-14.5); White Blood Cell Count 5.5 10^3/uL (4.8-10.8)
[2025-02-27 11:44] LABS: ALT (SGPT) 29 U/L (0-35); AST (SGOT) 35 U/L (14-36); Albumin 4.2 g/dl (3.5-5.0); Alkaline Phosphatase 389 U/L (38-126); Blood Urea Nitrogen 15 mg/dl (7-17); Calcium 9.5 mg/dl (8.4-10.2); Carbon Dioxide 24 mmol/L (22-30); Chloride 103 mmol/L (98-107); Glucose 91 mg/dl (70-99); Potassium 4.3 mmol/L (3.5-5.1); Sodium 132 mmol/L (135-145); Total Bilirubin 0.4 mg/dl (0.2-1.3); eGFR > 60.00
[2025-02-27 19:28] LABS: CA 125 618 U/mL (0-35)
== END ==
LOC: RADI 10:11
PROVIDERS: ATTENDING PHYSICIAN Internal Medicine Hematology & Oncology; FAMILY PHYSICIAN Nurse Practitioner Family
DX: C56.3 Malignant neoplasm of bilateral ovaries (principal); R18.0 Malignant ascites; Z53.8 Procedure and treatment not carried out for other reasons
CPT/HCPCS: 36415; 76705; 80053; 85025; 86304

== ENCOUNTER → 2025-03-05 10:25 | Outpatient (REF) | payer OTHER, SELFPAY ==
[2025-03-05 11:36] LABS: Hematocrit 36.2 % (37.0-47.0); Hemoglobin 12.1 g/dL (12.0-16.0); Mean Corp Hgb Conc. 33.4 g/dL (33.0-37.0); Mean Corpuscular Volume 106.2 fL (81.0-99.0); Nucleated Red Blood Cells % 0 %; Platelet Count 89 10^3/uL (130-400); Red Cell Dist. Width 16.4 % (11.5-14.5)
[2025-03-05 12:00] LABS: ALT (SGPT) 46 U/L (0-35); AST (SGOT) 46 U/L (14-36); Albumin 4.1 g/dl (3.5-5.0); Alkaline Phosphatase 461 U/L (38-126); Blood Urea Nitrogen 19 mg/dl (7-17); Calcium 9.5 mg/dl (8.4-10.2); Carbon Dioxide 25 mmol/L (22-30); Chloride 104 mmol/L (98-107); Glucose 111 mg/dl (70-99); Potassium 3.9 mmol/L (3.5-5.1); Sodium 136 mmol/L (135-145); Total Protein 7.0 g/dl (6.3-8.2); eGFR > 60.00
[2025-03-06 12:50] LABS: CA 125 825 U/mL (0-35)
== END ==
LOC: REG 10:25
PROVIDERS: ATTENDING PHYSICIAN Internal Medicine Hematology & Oncology; FAMILY PHYSICIAN Nurse Practitioner Family
DX: C56.9 Malignant neoplasm of unspecified ovary (principal); C56.3 Malignant neoplasm of bilateral ovaries; Z80.3 Family history of malignant neoplasm of breast; Z80.0 Family history of malignant neoplasm of digestive organs; R18.0 Malignant ascites; J91.0 Malignant pleural effusion; G89.3 Neoplasm related pain (acute) (chronic); D75.839 Thrombocytosis, unspecified; Z72.0 Tobacco use; E46 Unspecified protein-calorie malnutrition; R10.2 Pelvic and perineal pain
CPT/HCPCS: 36415; 80053; 85025; 86304

== ENCOUNTER → 2025-03-12 11:28 | Outpatient (REF) | payer OTHER, SELFPAY ==
[2025-03-12 12:43] LABS: Hematocrit 34.8 % (37.0-47.0); Hemoglobin 11.7 g/dL (12.0-16.0); Mean Corp Hgb Conc. 33.6 g/dL (33.0-37.0); Mean Corpuscular Volume 105.8 fL (81.0-99.0); Nucleated Red Blood Cells % 0 %; Platelet Count 90 10^3/uL (130-400); Red Cell Dist. Width 15.7 % (11.5-14.5)
[2025-03-12 13:11] LABS: ALT (SGPT) 55 U/L (0-35); AST (SGOT) 66 U/L (14-36); Albumin 4.1 g/dl (3.5-5.0); Alkaline Phosphatase 413 U/L (38-126); Blood Urea Nitrogen 18 mg/dl (7-17); Calcium 9.3 mg/dl (8.4-10.2); Carbon Dioxide 24 mmol/L (22-30); Chloride 102 mmol/L (98-107); Glucose 93 mg/dl (70-99); Potassium 4.3 mmol/L (3.5-5.1); Sodium 133 mmol/L (135-145); Total Protein 6.7 g/dl (6.3-8.2); eGFR > 60.00
[2025-03-13 19:26] LABS: CA 125 778 U/mL (0-35)
== END ==
LOC: REG 11:28
PROVIDERS: ATTENDING PHYSICIAN Internal Medicine Hematology & Oncology; FAMILY PHYSICIAN Nurse Practitioner Family
DX: C56.9 Malignant neoplasm of unspecified ovary (principal); C56.3 Malignant neoplasm of bilateral ovaries; Z80.3 Family history of malignant neoplasm of breast; Z80.0 Family history of malignant neoplasm of digestive organs; R18.0 Malignant ascites; J91.0 Malignant pleural effusion; G89.3 Neoplasm related pain (acute) (chronic); D75.839 Thrombocytosis, unspecified; Z72.0 Tobacco use; E46 Unspecified protein-calorie malnutrition; R10.2 Pelvic and perineal pain
CPT/HCPCS: 36415; 80053; 85025; 86304

== ENCOUNTER → 2025-03-19 11:37 | Outpatient (REF) | payer OTHER, SELFPAY ==
[2025-03-19 12:46] LABS: Hematocrit 33.9 % (37.0-47.0); Hemoglobin 11.3 g/dL (12.0-16.0); Mean Corp Hgb Conc. 33.3 g/dL (33.0-37.0); Mean Corpuscular Volume 107.3 fL (81.0-99.0); Nucleated Red Blood Cells % 0 %; Platelet Count 123 10^3/uL (130-400); Red Cell Dist. Width 15.1 % (11.5-14.5)
[2025-03-19 13:45] LABS: ALT (SGPT) 54 U/L (0-35); AST (SGOT) 57 U/L (14-36); Albumin 4.0 g/dl (3.5-5.0); Alkaline Phosphatase 408 U/L (38-126); Blood Urea Nitrogen 20 mg/dl (7-17); Calcium 9.2 mg/dl (8.4-10.2); Carbon Dioxide 23 mmol/L (22-30); Chloride 107 mmol/L (98-107); Glucose 107 mg/dl (70-99); HDL Cholesterol 60 mg/dl; LDL Cholesterol, Calculated 79 mg/dl; Potassium 3.8 mmol/L (3.5-5.1); Sodium 134 mmol/L (135-145); Total Protein 6.7 g/dl (6.3-8.2); Very Low Density Lipoprotein 23 mg/dl (0-30); eGFR > 60.00
[2025-03-20 20:08] LABS: CA 125 1370 U/mL (0-35)
== END ==
LOC: REG 11:37
PROVIDERS: ATTENDING PHYSICIAN Nurse Practitioner Family; FAMILY PHYSICIAN Internal Medicine Hematology & Oncology
DX: C56.9 Malignant neoplasm of unspecified ovary (principal); C56.3 Malignant neoplasm of bilateral ovaries; Z80.3 Family history of malignant neoplasm of breast; Z80.0 Family history of malignant neoplasm of digestive organs; R18.0 Malignant ascites; J91.0 Malignant pleural effusion; G89.3 Neoplasm related pain (acute) (chronic); D75.839 Thrombocytosis, unspecified; Z72.0 Tobacco use; E46 Unspecified protein-calorie malnutrition; R10.2 Pelvic and perineal pain; Z13.220 Encounter for screening for lipoid disorders
CPT/HCPCS: 36415; 80053; 80061; 85025; 86304

== ENCOUNTER → 2025-03-25 13:01 | Outpatient (REF) | payer OTHER, SELFPAY ==
[2025-03-25 13:50] LABS: Hematocrit 36.3 % (37.0-47.0); Hemoglobin 12.1 g/dL (12.0-16.0); Mean Corp Hgb Conc. 33.3 g/dL (33.0-37.0); Mean Corpuscular Volume 105.2 fL (81.0-99.0); Nucleated Red Blood Cells % 0 %; Platelet Count 103 10^3/uL (130-400); Red Cell Dist. Width 15.1 % (11.5-14.5)
[2025-03-25 14:06] LABS: ALT (SGPT) 88 U/L (0-35); AST (SGOT) 80 U/L (14-36); Albumin 3.9 g/dl (3.5-5.0); Blood Urea Nitrogen 17 mg/dl (7-17); Calcium 9.0 mg/dl (8.4-10.2); Carbon Dioxide 27 mmol/L (22-30); Chloride 102 mmol/L (98-107); Glucose 122 mg/dl (70-99); Potassium 4.1 mmol/L (3.5-5.1); Sodium 133 mmol/L (135-145); Total Protein 6.7 g/dl (6.3-8.2); eGFR > 60.00
[2025-03-25 14:15] LABS: Alkaline Phosphatase 601 U/L (38-126)
[2025-03-25 15:34] LABS: CA 125 2990 U/mL (0-35)
== END ==
LOC: REG 13:01
PROVIDERS: ATTENDING PHYSICIAN Internal Medicine Hematology & Oncology; FAMILY PHYSICIAN Nurse Practitioner Family
DX: C56.9 Malignant neoplasm of unspecified ovary (principal); C56.3 Malignant neoplasm of bilateral ovaries; Z80.3 Family history of malignant neoplasm of breast; Z80.0 Family history of malignant neoplasm of digestive organs; R18.0 Malignant ascites; J91.0 Malignant pleural effusion; G89.3 Neoplasm related pain (acute) (chronic); D75.839 Thrombocytosis, unspecified; Z72.0 Tobacco use; E46 Unspecified protein-calorie malnutrition; R10.2 Pelvic and perineal pain
CPT/HCPCS: 36415; 80053; 85025; 86304

== ENCOUNTER → 2025-03-27 09:36 | Outpatient (REF) | payer OTHER, SELFPAY | LOC: RAD 09:36 | PROVIDERS: ATTENDING PHYSICIAN Internal Medicine Hematology & Oncology; FAMILY PHYSICIAN Nurse Practitioner Family; REFERRING PHYSICIAN Obstetrics & Gynecology Gynecologic Oncology | DX: R10.2 Pelvic and perineal pain (principal); C56.9 Malignant neoplasm of unspecified ovary; C56.3 Malignant neoplasm of bilateral ovaries; Z80.3 Family history of malignant neoplasm of breast; Z80.0 Family history of malignant neoplasm of digestive organs; R18.0 Malignant ascites; J91.0 Malignant pleural effusion; G89.3 Neoplasm related pain (acute) (chronic); D75.839 Thrombocytosis, unspecified; Z72.0 Tobacco use; E46 Unspecified protein-calorie malnutrition | CPT/HCPCS: 71260; 74177; Q9967 ==

== ENCOUNTER → 2025-04-04 15:09 | Outpatient (REF) | payer OTHER, SELFPAY ==
[2025-04-04 16:11] LABS: Hematocrit 35.1 % (37.0-47.0); Hemoglobin 12.0 g/dL (12.0-16.0); Mean Corp Hgb Conc. 34.2 g/dL (33.0-37.0); Mean Corpuscular Volume 103.2 fL (81.0-99.0); Nucleated Red Blood Cells % 0 %; Platelet Count 129 10^3/uL (130-400); Red Cell Dist. Width 15.0 % (11.5-14.5)
[2025-04-04 16:53] LABS: ALT (SGPT) 68 U/L (0-35); AST (SGOT) 65 U/L (14-36); Albumin 4.2 g/dl (3.5-5.0); Alkaline Phosphatase 715 U/L (38-126); Blood Urea Nitrogen 12 mg/dl (7-17); Calcium 8.9 mg/dl (8.4-10.2); Carbon Dioxide 25 mmol/L (22-30); Chloride 102 mmol/L (98-107); Glucose 94 mg/dl (70-99); Potassium 4.1 mmol/L (3.5-5.1); Sodium 132 mmol/L (135-145); Total Protein 7.2 g/dl (6.3-8.2); eGFR > 60.00
[2025-04-04 18:19] LABS: CA 125 2750 U/mL (0-35)
== END ==
LOC: REG 15:09
PROVIDERS: ATTENDING PHYSICIAN Internal Medicine Hematology & Oncology; FAMILY PHYSICIAN Nurse Practitioner Family
DX: C56.9 Malignant neoplasm of unspecified ovary (principal); C56.3 Malignant neoplasm of bilateral ovaries; Z80.3 Family history of malignant neoplasm of breast; Z80.0 Family history of malignant neoplasm of digestive organs; R18.0 Malignant ascites
CPT/HCPCS: 36415; 80053; 85025; 86304

== ENCOUNTER → 2025-04-09 12:15 | Outpatient (REF) | payer OTHER, SELFPAY ==
[2025-04-09 13:27] LABS: Hematocrit 31.7 % (37.0-47.0); Hemoglobin 11.0 g/dL (12.0-16.0); Mean Corp Hgb Conc. 34.7 g/dL (33.0-37.0); Mean Corpuscular Volume 103.3 fL (81.0-99.0); Nucleated Red Blood Cells % 0 %; Platelet Count 153 10^3/uL (130-400); Red Cell Dist. Width 14.8 % (11.5-14.5)
[2025-04-09 14:29] LABS: ALT (SGPT) 54 U/L (0-35); AST (SGOT) 58 U/L (14-36); Albumin 3.9 g/dl (3.5-5.0); Alkaline Phosphatase 644 U/L (38-126); Blood Urea Nitrogen 15 mg/dl (7-17); Calcium 8.8 mg/dl (8.4-10.2); Carbon Dioxide 22 mmol/L (22-30); Chloride 99 mmol/L (98-107); Glucose 118 mg/dl (70-99); Potassium 4.2 mmol/L (3.5-5.1); Sodium 128 mmol/L (135-145); Total Protein 6.6 g/dl (6.3-8.2); eGFR > 60.00
[2025-04-10 20:12] LABS: CA 125 4010 U/mL (0-35)
== END ==
LOC: REG 12:15
PROVIDERS: ATTENDING PHYSICIAN Internal Medicine Hematology & Oncology; FAMILY PHYSICIAN Nurse Practitioner Family
DX: C56.9 Malignant neoplasm of unspecified ovary (principal); C56.3 Malignant neoplasm of bilateral ovaries; Z80.3 Family history of malignant neoplasm of breast; Z80.0 Family history of malignant neoplasm of digestive organs; R18.0 Malignant ascites; J91.0 Malignant pleural effusion; G89.3 Neoplasm related pain (acute) (chronic); D75.839 Thrombocytosis, unspecified; Z72.0 Tobacco use; E46 Unspecified protein-calorie malnutrition; R10.2 Pelvic and perineal pain
CPT/HCPCS: 36415; 80053; 85025; 86304

== ENCOUNTER → 2025-04-17 10:09 | Outpatient (REF) | payer OTHER, SELFPAY ==
[2025-04-17 10:46] LABS: Hematocrit 34.9 % (37.0-47.0); Hemoglobin 12.1 g/dL (12.0-16.0); Mean Corp Hgb Conc. 34.7 g/dL (33.0-37.0); Mean Corpuscular Volume 102.3 fL (81.0-99.0); Nucleated Red Blood Cells % 0 %; Platelet Count 155 10^3/uL (130-400); Red Cell Dist. Width 14.4 % (11.5-14.5)
[2025-04-17 11:10] LABS: ALT (SGPT) 62 U/L (0-35); AST (SGOT) 57 U/L (14-36); Albumin 4.0 g/dl (3.5-5.0); Alkaline Phosphatase 633 U/L (38-126); Blood Urea Nitrogen 15 mg/dl (7-17); Calcium 9.4 mg/dl (8.4-10.2); Carbon Dioxide 25 mmol/L (22-30); Chloride 102 mmol/L (98-107); Glucose 93 mg/dl (70-99); Potassium 4.5 mmol/L (3.5-5.1); Sodium 132 mmol/L (135-145); Total Protein 6.9 g/dl (6.3-8.2); eGFR > 60.00
[2025-04-17 19:48] LABS: CA 125 8440 U/mL (0-35)
== END ==
LOC: REG 10:09
PROVIDERS: ATTENDING PHYSICIAN Internal Medicine Hematology & Oncology; FAMILY PHYSICIAN Nurse Practitioner Family
DX: C56.9 Malignant neoplasm of unspecified ovary (principal); C56.3 Malignant neoplasm of bilateral ovaries; Z80.3 Family history of malignant neoplasm of breast; Z80.0 Family history of malignant neoplasm of digestive organs; R18.0 Malignant ascites; J91.0 Malignant pleural effusion; G89.3 Neoplasm related pain (acute) (chronic); D75.839 Thrombocytosis, unspecified; Z72.0 Tobacco use; E46 Unspecified protein-calorie malnutrition; R10.2 Pelvic and perineal pain
CPT/HCPCS: 36415; 80053; 85025; 86304

== ENCOUNTER → 2025-04-23 12:23 | Outpatient (REF) | payer OTHER, SELFPAY ==
[2025-04-23 14:16] LABS: Hematocrit 29.3 % (37.0-47.0); Hemoglobin 10.0 g/dL (12.0-16.0); Mean Corp Hgb Conc. 34.1 g/dL (33.0-37.0); Mean Corpuscular Volume 101.4 fL (81.0-99.0); Nucleated Red Blood Cells % 0 %; Red Cell Dist. Width 13.7 % (11.5-14.5)
[2025-04-23 14:18] LABS: ALT (SGPT) 74 U/L (0-35); AST (SGOT) 61 U/L (14-36); Albumin 3.7 g/dl (3.5-5.0); Alkaline Phosphatase 808 U/L (38-126); Blood Urea Nitrogen 11 mg/dl (7-17); Calcium 8.1 mg/dl (8.4-10.2); Carbon Dioxide 19 mmol/L (22-30); Chloride 108 mmol/L (98-107); Glucose 83 mg/dl (70-99); Potassium 4.7 mmol/L (3.5-5.1); Sodium 130 mmol/L (135-145); Total Protein 6.6 g/dl (6.3-8.2); eGFR > 60.00
[2025-04-23 14:33] LABS: Platelet Count 92 10^3/uL (130-400)
== END ==
LOC: REG 12:23
PROVIDERS: ATTENDING PHYSICIAN Internal Medicine Hematology & Oncology; FAMILY PHYSICIAN Nurse Practitioner Family
DX: C56.3 Malignant neoplasm of bilateral ovaries (principal); C56.9 Malignant neoplasm of unspecified ovary; Z80.3 Family history of malignant neoplasm of breast; Z80.0 Family history of malignant neoplasm of digestive organs; R18.0 Malignant ascites; J91.0 Malignant pleural effusion; G89.3 Neoplasm related pain (acute) (chronic); D75.839 Thrombocytosis, unspecified; Z72.0 Tobacco use; E46 Unspecified protein-calorie malnutrition; R10.2 Pelvic and perineal pain; C79.51 Secondary malignant neoplasm of bone
CPT/HCPCS: 36415; 80053; 85025

== ENCOUNTER → 2025-05-01 13:26 | Outpatient (REF) | payer OTHER, SELFPAY ==
[2025-05-01 14:54] LABS: Hematocrit 27.8 % (37.0-47.0); Hemoglobin 9.5 g/dL (12.0-16.0); Mean Corp Hgb Conc. 34.2 g/dL (33.0-37.0); Mean Corpuscular Volume 100.0 fL (81.0-99.0); Red Cell Dist. Width 13.3 % (11.5-14.5)
[2025-05-01 15:08] LABS: AST (SGOT) 115 U/L (14-36); Blood Urea Nitrogen 15 mg/dl (7-17); Carbon Dioxide 21 mmol/L (22-30); Glucose 114 mg/dl (70-99); eGFR > 60.00
[2025-05-01 15:34] LABS: Nucleated Red Blood Cells % 0 %
[2025-05-01 15:35] LABS: Platelet Count 17 10^3/uL (130-400)
[2025-05-01 16:09] LABS: ALT (SGPT) 158 U/L (0-35); Albumin 4.2 g/dl (3.5-5.0); Alkaline Phosphatase 729 U/L (38-126); Calcium 8.9 mg/dl (8.4-10.2); Chloride 102 mmol/L (98-107); Potassium 5.1 mmol/L (3.5-5.1); Sodium 128 mmol/L (135-145); Total Protein 6.8 g/dl (6.3-8.2)
== END ==
LOC: REG 13:26
PROVIDERS: ATTENDING PHYSICIAN Internal Medicine Hematology & Oncology; FAMILY PHYSICIAN Nurse Practitioner Family
DX: C56.9 Malignant neoplasm of unspecified ovary (principal); C56.3 Malignant neoplasm of bilateral ovaries; Z80.3 Family history of malignant neoplasm of breast; Z80.0 Family history of malignant neoplasm of digestive organs; R18.0 Malignant ascites; J91.0 Malignant pleural effusion; G89.3 Neoplasm related pain (acute) (chronic); D75.839 Thrombocytosis, unspecified; Z72.0 Tobacco use; E46 Unspecified protein-calorie malnutrition; R10.2 Pelvic and perineal pain; C79.51 Secondary malignant neoplasm of bone
CPT/HCPCS: 36415; 80053; 85025

== ENCOUNTER → 2025-05-07 09:07 | Outpatient (REF) | payer OTHER, SELFPAY ==
[2025-05-07 10:59] LABS: Hematocrit 28.4 % (37.0-47.0); Hemoglobin 9.7 g/dL (12.0-16.0); Mean Corp Hgb Conc. 34.2 g/dL (33.0-37.0); Mean Corpuscular Volume 102.9 fL (81.0-99.0); Nucleated Red Blood Cells % 0 %; Platelet Count 56 10^3/uL (130-400); Red Cell Dist. Width 14.9 % (11.5-14.5)
[2025-05-07 11:23] LABS: ALT (SGPT) 100 U/L (0-35); AST (SGOT) 58 U/L (14-36); Albumin 4.3 g/dl (3.5-5.0); Alkaline Phosphatase 595 U/L (38-126); Blood Urea Nitrogen 14 mg/dl (7-17); Calcium 8.7 mg/dl (8.4-10.2); Carbon Dioxide 23 mmol/L (22-30); Chloride 104 mmol/L (98-107); Glucose 96 mg/dl (70-99); Potassium 4.5 mmol/L (3.5-5.1); Sodium 131 mmol/L (135-145); Total Protein 7.0 g/dl (6.3-8.2); eGFR > 60.00
== END ==
LOC: REG 09:07
PROVIDERS: ATTENDING PHYSICIAN Internal Medicine Hematology & Oncology; FAMILY PHYSICIAN Nurse Practitioner Family
DX: C56.9 Malignant neoplasm of unspecified ovary (principal); C56.3 Malignant neoplasm of bilateral ovaries; Z80.3 Family history of malignant neoplasm of breast; Z80.0 Family history of malignant neoplasm of digestive organs; R18.0 Malignant ascites; J91.0 Malignant pleural effusion; G89.3 Neoplasm related pain (acute) (chronic); D75.839 Thrombocytosis, unspecified; Z72.0 Tobacco use; E46 Unspecified protein-calorie malnutrition; R10.2 Pelvic and perineal pain; C79.51 Secondary malignant neoplasm of bone
CPT/HCPCS: 36415; 80053; 85025

== ENCOUNTER → 2025-05-14 12:49 | Outpatient (REF) | payer OTHER, SELFPAY ==
[2025-05-14 14:07] LABS: Hematocrit 29.2 % (37.0-47.0); Hemoglobin 10.5 g/dL (12.0-16.0); Mean Corp Hgb Conc. 36.0 g/dL (33.0-37.0); Mean Corpuscular Volume 103.9 fL (81.0-99.0); Nucleated Red Blood Cells % 0 %; Platelet Count 226 10^3/uL (130-400); Red Cell Dist. Width 16.8 % (11.5-14.5)
[2025-05-14 14:40] LABS: ALT (SGPT) 44 U/L (0-35); AST (SGOT) 37 U/L (14-36); Albumin 3.9 g/dl (3.5-5.0); Alkaline Phosphatase 441 U/L (38-126); Blood Urea Nitrogen 11 mg/dl (7-17); Calcium 8.4 mg/dl (8.4-10.2); Carbon Dioxide 23 mmol/L (22-30); Chloride 99 mmol/L (98-107); Glucose 99 mg/dl (70-99); Potassium 4.6 mmol/L (3.5-5.1); Sodium 127 mmol/L (135-145); Total Protein 6.5 g/dl (6.3-8.2); eGFR > 60.00
== END ==
LOC: REG 12:49
PROVIDERS: ATTENDING PHYSICIAN Internal Medicine Hematology & Oncology; FAMILY PHYSICIAN Nurse Practitioner Family
DX: C56.9 Malignant neoplasm of unspecified ovary (principal); C56.3 Malignant neoplasm of bilateral ovaries; Z80.3 Family history of malignant neoplasm of breast; Z80.0 Family history of malignant neoplasm of digestive organs; R18.0 Malignant ascites; J91.0 Malignant pleural effusion; G89.3 Neoplasm related pain (acute) (chronic); D75.839 Thrombocytosis, unspecified; Z72.0 Tobacco use; E46 Unspecified protein-calorie malnutrition; R10.2 Pelvic and perineal pain; C79.51 Secondary malignant neoplasm of bone
CPT/HCPCS: 36415; 80053; 85025

== ENCOUNTER → 2025-05-23 13:17 | Outpatient (REF) | payer OTHER, SELFPAY ==
[2025-05-23 14:05] LABS: Hematocrit 27.8 % (37.0-47.0); Hemoglobin 9.7 g/dL (12.0-16.0); Mean Corp Hgb Conc. 34.9 g/dL (33.0-37.0); Mean Corpuscular Volume 103.0 fL (81.0-99.0); Platelet Count 128 10^3/uL (130-400); Red Cell Dist. Width 15.9 % (11.5-14.5)
[2025-05-23 14:43] LABS: Nucleated Red Blood Cells % 0 %
[2025-05-23 17:04] LABS: ALT (SGPT) 70 U/L (0-35); AST (SGOT) 52 U/L (14-36); Albumin 4.0 g/dl (3.5-5.0); Alkaline Phosphatase 438 U/L (38-126); Blood Urea Nitrogen 17 mg/dl (7-17); Calcium 8.7 mg/dl (8.4-10.2); Carbon Dioxide 21 mmol/L (22-30); Chloride 104 mmol/L (98-107); Glucose 124 mg/dl (70-99); Potassium 4.6 mmol/L (3.5-5.1); Sodium 130 mmol/L (135-145); Total Protein 6.5 g/dl (6.3-8.2); eGFR > 60.00
== END ==
LOC: REG 13:17
PROVIDERS: ATTENDING PHYSICIAN Internal Medicine Hematology & Oncology; FAMILY PHYSICIAN Nurse Practitioner Family
DX: C56.9 Malignant neoplasm of unspecified ovary (principal); C56.3 Malignant neoplasm of bilateral ovaries; Z80.3 Family history of malignant neoplasm of breast; Z80.0 Family history of malignant neoplasm of digestive organs; R18.0 Malignant ascites; J91.0 Malignant pleural effusion; G89.3 Neoplasm related pain (acute) (chronic); D75.839 Thrombocytosis, unspecified; Z72.0 Tobacco use; E46 Unspecified protein-calorie malnutrition; R10.2 Pelvic and perineal pain
CPT/HCPCS: 36415; 80053; 85025

== ENCOUNTER → 2025-05-28 12:49 | Outpatient (REF) | payer OTHER, SELFPAY ==
[2025-05-28 13:54] LABS: Hematocrit 27.9 % (37.0-47.0); Hemoglobin 9.7 g/dL (12.0-16.0); Mean Corp Hgb Conc. 34.8 g/dL (33.0-37.0); Mean Corpuscular Volume 104.5 fL (81.0-99.0); Nucleated Red Blood Cells % 0 %; Red Cell Dist. Width 17.1 % (11.5-14.5)
[2025-05-28 14:40] LABS: Platelet Count 93 10^3/uL (130-400)
[2025-05-28 16:00] LABS: ALT (SGPT) 61 U/L (0-35); AST (SGOT) 47 U/L (14-36); Albumin 4.1 g/dl (3.5-5.0); Alkaline Phosphatase 377 U/L (38-126); Blood Urea Nitrogen 12 mg/dl (7-17); Calcium 8.8 mg/dl (8.4-10.2); Carbon Dioxide 21 mmol/L (22-30); Chloride 99 mmol/L (98-107); Glucose 118 mg/dl (70-99); Potassium 4.6 mmol/L (3.5-5.1); Sodium 125 mmol/L (135-145); Total Protein 6.8 g/dl (6.3-8.2); eGFR > 60.00
== END ==
LOC: REG 12:49
PROVIDERS: ATTENDING PHYSICIAN Internal Medicine Hematology & Oncology; FAMILY PHYSICIAN Nurse Practitioner Family
DX: C56.9 Malignant neoplasm of unspecified ovary (principal); D56.3 Thalassemia minor; Z80.3 Family history of malignant neoplasm of breast; Z80.0 Family history of malignant neoplasm of digestive organs; R18.0 Malignant ascites; J91.0 Malignant pleural effusion; G89.3 Neoplasm related pain (acute) (chronic); D75.839 Thrombocytosis, unspecified; Z72.0 Tobacco use; E46 Unspecified protein-calorie malnutrition; R10.2 Pelvic and perineal pain; C79.51 Secondary malignant neoplasm of bone
CPT/HCPCS: 36415; 80053; 85025

== ENCOUNTER → 2025-06-03 12:48 | Outpatient (REF) | payer OTHER, SELFPAY ==
[2025-06-03 14:16] LABS: Hematocrit 29.5 % (37.0-47.0); Hemoglobin 10.1 g/dL (12.0-16.0); Mean Corp Hgb Conc. 34.2 g/dL (33.0-37.0); Mean Corpuscular Volume 104.2 fL (81.0-99.0); Nucleated Red Blood Cells % 0 %; Platelet Count 234 10^3/uL (130-400); Red Cell Dist. Width 17.5 % (11.5-14.5)
[2025-06-03 14:31] LABS: ALT (SGPT) 40 U/L (0-35); AST (SGOT) 36 U/L (14-36); Albumin 4.1 g/dl (3.5-5.0); Alkaline Phosphatase 363 U/L (38-126); Blood Urea Nitrogen 13 mg/dl (7-17); Calcium 8.7 mg/dl (8.4-10.2); Carbon Dioxide 22 mmol/L (22-30); Chloride 100 mmol/L (98-107); Glucose 94 mg/dl (70-99); Potassium 5.0 mmol/L (3.5-5.1); Sodium 127 mmol/L (135-145); Total Protein 6.7 g/dl (6.3-8.2); eGFR > 60.00
== END ==
LOC: REG 12:48
PROVIDERS: ATTENDING PHYSICIAN Internal Medicine Hematology & Oncology; FAMILY PHYSICIAN Nurse Practitioner Family
DX: C56.9 Malignant neoplasm of unspecified ovary (principal); C56.3 Malignant neoplasm of bilateral ovaries; Z80.3 Family history of malignant neoplasm of breast; Z80.0 Family history of malignant neoplasm of digestive organs; R18.0 Malignant ascites; J91.0 Malignant pleural effusion; G89.3 Neoplasm related pain (acute) (chronic); D75.839 Thrombocytosis, unspecified; Z72.0 Tobacco use; E46 Unspecified protein-calorie malnutrition; R10.2 Pelvic and perineal pain; C79.51 Secondary malignant neoplasm of bone
CPT/HCPCS: 36415; 80053; 85025

== ENCOUNTER → 2025-06-12 09:32 | Outpatient (REF) | payer OTHER, SELFPAY ==
[2025-06-12 10:33] LABS: Hematocrit 31.6 % (37.0-47.0); Hemoglobin 11.2 g/dL (12.0-16.0); Mean Corp Hgb Conc. 35.4 g/dL (33.0-37.0); Mean Corpuscular Volume 103.3 fL (81.0-99.0); Nucleated Red Blood Cells % 0 %; Platelet Count 190 10^3/uL (130-400); Red Cell Dist. Width 15.9 % (11.5-14.5)
[2025-06-12 11:17] LABS: ALT (SGPT) 31 U/L (0-35); AST (SGOT) 38 U/L (14-36); Albumin 4.4 g/dl (3.5-5.0); Alkaline Phosphatase 385 U/L (38-126); Blood Urea Nitrogen 15 mg/dl (7-17); Calcium 9.0 mg/dl (8.4-10.2); Carbon Dioxide 20 mmol/L (22-30); Chloride 97 mmol/L (98-107); Glucose 95 mg/dl (70-99); Potassium 5.2 mmol/L (3.5-5.1); Sodium 124 mmol/L (135-145); Total Protein 7.0 g/dl (6.3-8.2); eGFR > 60.00
== END ==
LOC: REG 09:32
PROVIDERS: ATTENDING PHYSICIAN Internal Medicine Hematology & Oncology; FAMILY PHYSICIAN Nurse Practitioner Family
DX: C56.9 Malignant neoplasm of unspecified ovary (principal); C56.3 Malignant neoplasm of bilateral ovaries; Z80.3 Family history of malignant neoplasm of breast; Z80.0 Family history of malignant neoplasm of digestive organs; R18.0 Malignant ascites; J91.0 Malignant pleural effusion; G89.3 Neoplasm related pain (acute) (chronic); D75.839 Thrombocytosis, unspecified; Z72.0 Tobacco use; E46 Unspecified protein-calorie malnutrition; C79.51 Secondary malignant neoplasm of bone; R10.20 Pelvic and perineal pain unspecified side
CPT/HCPCS: 36415; 80053; 85025

== ENCOUNTER → 2025-06-18 11:52 | Outpatient (REF) | payer OTHER, SELFPAY ==
[2025-06-18 13:02] LABS: Hematocrit 30.1 % (37.0-47.0); Hemoglobin 10.1 g/dL (12.0-16.0); Mean Corp Hgb Conc. 33.6 g/dL (33.0-37.0); Mean Corpuscular Volume 107.1 fL (81.0-99.0); Nucleated Red Blood Cells % 0 %; Platelet Count 122 10^3/uL (130-400); Red Cell Dist. Width 15.2 % (11.5-14.5)
[2025-06-18 13:30] LABS: ALT (SGPT) 35 U/L (0-35); AST (SGOT) 32 U/L (14-36); Albumin 4.2 g/dl (3.5-5.0); Alkaline Phosphatase 335 U/L (38-126); Blood Urea Nitrogen 20 mg/dl (7-17); Calcium 8.7 mg/dl (8.4-10.2); Carbon Dioxide 22 mmol/L (22-30); Chloride 102 mmol/L (98-107); Glucose 120 mg/dl (70-99); Potassium 4.7 mmol/L (3.5-5.1); Sodium 129 mmol/L (135-145); Total Protein 6.7 g/dl (6.3-8.2); eGFR > 60.00
== END ==
LOC: REG 11:52
PROVIDERS: ATTENDING PHYSICIAN Internal Medicine Hematology & Oncology; FAMILY PHYSICIAN Nurse Practitioner Family
DX: C56.9 Malignant neoplasm of unspecified ovary (principal); C56.3 Malignant neoplasm of bilateral ovaries; Z80.3 Family history of malignant neoplasm of breast; Z80.0 Family history of malignant neoplasm of digestive organs; R18.0 Malignant ascites; J91.0 Malignant pleural effusion; G89.3 Neoplasm related pain (acute) (chronic); D75.839 Thrombocytosis, unspecified; Z72.0 Tobacco use; E46 Unspecified protein-calorie malnutrition; R10.2 Pelvic and perineal pain; C79.51 Secondary malignant neoplasm of bone
CPT/HCPCS: 36415; 80053; 85025

== ENCOUNTER → 2025-06-25 12:33 | Outpatient (REF) | payer OTHER, SELFPAY ==
[2025-06-25 14:13] LABS: Hematocrit 30.7 % (37.0-47.0); Hemoglobin 10.7 g/dL (12.0-16.0); Mean Corp Hgb Conc. 34.9 g/dL (33.0-37.0); Mean Corpuscular Volume 103.0 fL (81.0-99.0); Nucleated Red Blood Cells % 0 %; Platelet Count 105 10^3/uL (130-400); Red Cell Dist. Width 15.4 % (11.5-14.5)
[2025-06-25 15:46] LABS: ALT (SGPT) 40 U/L (0-35); AST (SGOT) 32 U/L (14-36); Albumin 4.3 g/dl (3.5-5.0); Alkaline Phosphatase 339 U/L (38-126); Blood Urea Nitrogen 14 mg/dl (7-17); Calcium 8.6 mg/dl (8.4-10.2); Carbon Dioxide 23 mmol/L (22-30); Chloride 98 mmol/L (98-107); Glucose 119 mg/dl (70-99); Potassium 3.8 mmol/L (3.5-5.1); Sodium 125 mmol/L (135-145); Total Protein 6.9 g/dl (6.3-8.2); eGFR > 60.00
== END ==
LOC: REG 12:33
PROVIDERS: ATTENDING PHYSICIAN Internal Medicine Hematology & Oncology; FAMILY PHYSICIAN Nurse Practitioner Family
DX: C56.9 Malignant neoplasm of unspecified ovary (principal); C56.3 Malignant neoplasm of bilateral ovaries; Z80.3 Family history of malignant neoplasm of breast; Z80.0 Family history of malignant neoplasm of digestive organs; R18.0 Malignant ascites; J91.0 Malignant pleural effusion; G89.3 Neoplasm related pain (acute) (chronic); D75.839 Thrombocytosis, unspecified; Z72.0 Tobacco use; E46 Unspecified protein-calorie malnutrition; R10.20 Pelvic and perineal pain unspecified side; C79.51 Secondary malignant neoplasm of bone
CPT/HCPCS: 36415; 80053; 85025

== ENCOUNTER → 2025-06-27 12:56 | Outpatient (REF) | payer OTHER, SELFPAY | LOC: RAD 12:56 | PROVIDERS: ATTENDING PHYSICIAN Nurse Practitioner Family | DX: J18.9 Pneumonia, unspecified organism (principal) | CPT/HCPCS: 71046 ==

== ENCOUNTER → 2025-07-04 13:10 | Outpatient (REF) | payer OTHER, SELFPAY ==
[2025-07-04 14:00] LABS: Hematocrit 33.2 % (37.0-47.0); Hemoglobin 11.7 g/dL (12.0-16.0); Mean Corp Hgb Conc. 35.2 g/dL (33.0-37.0); Mean Corpuscular Volume 103.4 fL (81.0-99.0); Nucleated Red Blood Cells % 0 %; Platelet Count 281 10^3/uL (130-400); Red Cell Dist. Width 14.8 % (11.5-14.5)
[2025-07-04 15:00] LABS: ALT (SGPT) 42 U/L (0-35); AST (SGOT) 42 U/L (14-36); Albumin 4.4 g/dl (3.5-5.0); Alkaline Phosphatase 367 U/L (38-126); Blood Urea Nitrogen 14 mg/dl (7-17); Calcium 9.4 mg/dl (8.4-10.2); Carbon Dioxide 22 mmol/L (22-30); Chloride 102 mmol/L (98-107); Glucose 99 mg/dl (70-99); Potassium 4.6 mmol/L (3.5-5.1); Sodium 134 mmol/L (135-145); Total Protein 7.1 g/dl (6.3-8.2); eGFR > 60.00
== END ==
LOC: REG 13:10
PROVIDERS: ATTENDING PHYSICIAN Internal Medicine Hematology & Oncology; FAMILY PHYSICIAN Nurse Practitioner Family
DX: C56.9 Malignant neoplasm of unspecified ovary (principal); C56.3 Malignant neoplasm of bilateral ovaries; Z80.3 Family history of malignant neoplasm of breast; Z80.0 Family history of malignant neoplasm of digestive organs; R18.0 Malignant ascites; J91.0 Malignant pleural effusion; G89.3 Neoplasm related pain (acute) (chronic); D75.839 Thrombocytosis, unspecified; Z72.0 Tobacco use; E46 Unspecified protein-calorie malnutrition; R10.20 Pelvic and perineal pain unspecified side
CPT/HCPCS: 36415; 80053; 85025

== ENCOUNTER → 2025-07-09 11:53 | Outpatient (REF) | payer OTHER, SELFPAY ==
[2025-07-09 13:03] LABS: Hematocrit 31.3 % (37.0-47.0); Hemoglobin 10.9 g/dL (12.0-16.0); Mean Corp Hgb Conc. 34.8 g/dL (33.0-37.0); Mean Corpuscular Volume 105.0 fL (81.0-99.0); Nucleated Red Blood Cells % 0 %; Platelet Count 187 10^3/uL (130-400); Red Cell Dist. Width 14.6 % (11.5-14.5)
[2025-07-09 16:39] LABS: ALT (SGPT) 45 U/L (0-35); AST (SGOT) 40 U/L (14-36); Albumin 4.3 g/dl (3.5-5.0); Alkaline Phosphatase 322 U/L (38-126); Blood Urea Nitrogen 18 mg/dl (7-17); Calcium 9.1 mg/dl (8.4-10.2); Carbon Dioxide 24 mmol/L (22-30); Chloride 103 mmol/L (98-107); Glucose 96 mg/dl (70-99); Potassium 4.1 mmol/L (3.5-5.1); Sodium 132 mmol/L (135-145); Total Protein 7.1 g/dl (6.3-8.2); eGFR > 60.00
== END ==
LOC: REG 11:53
PROVIDERS: ATTENDING PHYSICIAN Internal Medicine Hematology & Oncology; FAMILY PHYSICIAN Nurse Practitioner Family
DX: C56.9 Malignant neoplasm of unspecified ovary (principal); C56.3 Malignant neoplasm of bilateral ovaries; Z80.3 Family history of malignant neoplasm of breast; Z80.0 Family history of malignant neoplasm of digestive organs; R18.0 Malignant ascites; J91.0 Malignant pleural effusion; G89.3 Neoplasm related pain (acute) (chronic); D75.839 Thrombocytosis, unspecified; Z72.0 Tobacco use; E46 Unspecified protein-calorie malnutrition; R10.20 Pelvic and perineal pain unspecified side; C79.51 Secondary malignant neoplasm of bone
CPT/HCPCS: 36415; 80053; 85025

== ENCOUNTER → 2025-07-18 09:01 | Outpatient (REF) | payer OTHER, SELFPAY ==
[2025-07-18 10:24] LABS: Hematocrit 29.2 % (37.0-47.0); Hemoglobin 10.3 g/dL (12.0-16.0); Mean Corp Hgb Conc. 35.3 g/dL (33.0-37.0); Mean Corpuscular Volume 102.8 fL (81.0-99.0); Nucleated Red Blood Cells % 0 %; Platelet Count 93 10^3/uL (130-400); Red Cell Dist. Width 13.3 % (11.5-14.5)
[2025-07-18 11:11] LABS: ALT (SGPT) 71 U/L (0-35); AST (SGOT) 49 U/L (14-36); Albumin 4.0 g/dl (3.5-5.0); Alkaline Phosphatase 336 U/L (38-126); Blood Urea Nitrogen 13 mg/dl (7-17); Calcium 8.7 mg/dl (8.4-10.2); Carbon Dioxide 25 mmol/L (22-30); Chloride 100 mmol/L (98-107); Glucose 97 mg/dl (70-99); Potassium 4.8 mmol/L (3.5-5.1); Sodium 126 mmol/L (135-145); Total Protein 6.8 g/dl (6.3-8.2); eGFR > 60.00
== END ==
LOC: REG 09:01
PROVIDERS: ATTENDING PHYSICIAN Internal Medicine Hematology & Oncology
DX: C56.9 Malignant neoplasm of unspecified ovary (principal); C56.3 Malignant neoplasm of bilateral ovaries; Z80.3 Family history of malignant neoplasm of breast; Z80.0 Family history of malignant neoplasm of digestive organs; R18.0 Malignant ascites; J91.0 Malignant pleural effusion; G89.3 Neoplasm related pain (acute) (chronic); D75.839 Thrombocytosis, unspecified; Z72.0 Tobacco use; E46 Unspecified protein-calorie malnutrition; R10.0 Acute abdomen; C79.51 Secondary malignant neoplasm of bone
CPT/HCPCS: 36415; 80053; 85025

== ENCOUNTER → 2025-07-23 11:15 | Outpatient (REF) | payer OTHER, SELFPAY ==
[2025-07-23 12:23] LABS: Hematocrit 32.0 % (37.0-47.0); Hemoglobin 11.1 g/dL (12.0-16.0); Mean Corp Hgb Conc. 34.7 g/dL (33.0-37.0); Mean Corpuscular Volume 100.9 fL (81.0-99.0); Nucleated Red Blood Cells % 0 %; Platelet Count 141 10^3/uL (130-400); Red Cell Dist. Width 14.2 % (11.5-14.5)
[2025-07-23 13:29] LABS: ALT (SGPT) 85 U/L (0-35); AST (SGOT) 53 U/L (14-36); Albumin 4.3 g/dl (3.5-5.0); Alkaline Phosphatase 325 U/L (38-126); Blood Urea Nitrogen 13 mg/dl (7-17); Calcium 8.9 mg/dl (8.4-10.2); Carbon Dioxide 25 mmol/L (22-30); Chloride 97 mmol/L (98-107); Glucose 115 mg/dl (70-99); Potassium 4.4 mmol/L (3.5-5.1); Sodium 125 mmol/L (135-145); Total Protein 7.1 g/dl (6.3-8.2); eGFR > 60.00
== END ==
LOC: REG 11:15
PROVIDERS: ATTENDING PHYSICIAN Internal Medicine Hematology & Oncology
DX: C56.9 Malignant neoplasm of unspecified ovary (principal); C56.3 Malignant neoplasm of bilateral ovaries; Z80.3 Family history of malignant neoplasm of breast; Z80.0 Family history of malignant neoplasm of digestive organs; R18.0 Malignant ascites; J91.0 Malignant pleural effusion; G89.3 Neoplasm related pain (acute) (chronic); D75.839 Thrombocytosis, unspecified; Z72.0 Tobacco use; E46 Unspecified protein-calorie malnutrition; R10.20 Pelvic and perineal pain unspecified side; C79.51 Secondary malignant neoplasm of bone
CPT/HCPCS: 36415; 80053; 85025

== ENCOUNTER → 2025-07-29 14:05 | Outpatient (REF) | payer OTHER, SELFPAY ==
[2025-07-29 14:33] LABS: Hematocrit 30.4 % (37.0-47.0); Hemoglobin 10.4 g/dL (12.0-16.0); Mean Corp Hgb Conc. 34.2 g/dL (33.0-37.0); Mean Corpuscular Volume 105.2 fL (81.0-99.0); Nucleated Red Blood Cells % 0 %; Platelet Count 186 10^3/uL (130-400); Red Cell Dist. Width 13.5 % (11.5-14.5)
[2025-07-29 15:29] LABS: ALT (SGPT) 72 U/L (0-35); AST (SGOT) 58 U/L (14-36); Albumin 4.0 g/dl (3.5-5.0); Alkaline Phosphatase 300 U/L (38-126); Blood Urea Nitrogen 17 mg/dl (7-17); Calcium 8.3 mg/dl (8.4-10.2); Carbon Dioxide 24 mmol/L (22-30); Chloride 101 mmol/L (98-107); Glucose 118 mg/dl (70-99); Potassium 4.2 mmol/L (3.5-5.1); Sodium 129 mmol/L (135-145); Total Protein 6.6 g/dl (6.3-8.2); eGFR > 60.00
== END ==
LOC: REG 14:05
PROVIDERS: ATTENDING PHYSICIAN Internal Medicine Hematology & Oncology
DX: C56.9 Malignant neoplasm of unspecified ovary (principal); C56.3 Malignant neoplasm of bilateral ovaries; Z80.3 Family history of malignant neoplasm of breast; R18.0 Malignant ascites; J91.0 Malignant pleural effusion; G89.3 Neoplasm related pain (acute) (chronic); D75.839 Thrombocytosis, unspecified; Z72.0 Tobacco use; E46 Unspecified protein-calorie malnutrition; R10.20 Pelvic and perineal pain unspecified side; C79.51 Secondary malignant neoplasm of bone
CPT/HCPCS: 36415; 80053; 85025

== ENCOUNTER → 2025-08-06 13:22 | Outpatient (REF) | payer OTHER, SELFPAY ==
[2025-08-06 14:45] LABS: Hematocrit 28.6 % (37.0-47.0); Hemoglobin 9.6 g/dL (12.0-16.0); Mean Corp Hgb Conc. 33.6 g/dL (33.0-37.0); Mean Corpuscular Volume 104.0 fL (81.0-99.0); Nucleated Red Blood Cells % 0 %; Platelet Count 75 10^3/uL (130-400); Red Cell Dist. Width 13.4 % (11.5-14.5)
[2025-08-06 15:21] LABS: ALT (SGPT) 128 U/L (0-35); AST (SGOT) 62 U/L (14-36); Albumin 3.8 g/dl (3.5-5.0); Alkaline Phosphatase 276 U/L (38-126); Blood Urea Nitrogen 18 mg/dl (7-17); Calcium 8.3 mg/dl (8.4-10.2); Carbon Dioxide 26 mmol/L (22-30); Chloride 103 mmol/L (98-107); Glucose 74 mg/dl (70-99); Potassium 4.9 mmol/L (3.5-5.1); Sodium 130 mmol/L (135-145); Total Protein 6.5 g/dl (6.3-8.2); eGFR 45.92
== END ==
LOC: REG 13:22
PROVIDERS: ATTENDING PHYSICIAN Internal Medicine Hematology & Oncology; FAMILY PHYSICIAN Nurse Practitioner Family
DX: C56.9 Malignant neoplasm of unspecified ovary (principal); C56.3 Malignant neoplasm of bilateral ovaries; Z80.3 Family history of malignant neoplasm of breast; Z80.0 Family history of malignant neoplasm of digestive organs; R18.0 Malignant ascites; J91.0 Malignant pleural effusion; G89.3 Neoplasm related pain (acute) (chronic); D75.839 Thrombocytosis, unspecified; Z82.0 Family history of epilepsy and other diseases of the nervous system; E46 Unspecified protein-calorie malnutrition; R10.20 Pelvic and perineal pain unspecified side; C79.51 Secondary malignant neoplasm of bone
CPT/HCPCS: 36415; 80053; 85025

== ENCOUNTER → 2025-08-12 13:22 | Outpatient (REF) | payer OTHER, SELFPAY ==
[2025-08-12 14:19] LABS: Hematocrit 26.2 % (37.0-47.0); Hemoglobin 9.2 g/dL (12.0-16.0); Mean Corp Hgb Conc. 35.1 g/dL (33.0-37.0); Mean Corpuscular Volume 101.6 fL (81.0-99.0); Platelet Count 41 10^3/uL (130-400); Red Cell Dist. Width 13.5 % (11.5-14.5)
[2025-08-12 14:21] LABS: Nucleated Red Blood Cells % 0 %
[2025-08-12 14:55] LABS: ALT (SGPT) 88 U/L (0-35); AST (SGOT) 48 U/L (14-36); Albumin 3.9 g/dl (3.5-5.0); Alkaline Phosphatase 321 U/L (38-126); Blood Urea Nitrogen 14 mg/dl (7-17); Calcium 9.3 mg/dl (8.4-10.2); Carbon Dioxide 27 mmol/L (22-30); Chloride 103 mmol/L (98-107); Glucose 107 mg/dl (70-99); Potassium 4.1 mmol/L (3.5-5.1); Sodium 133 mmol/L (135-145); Total Protein 6.5 g/dl (6.3-8.2); eGFR > 60.00
== END ==
LOC: REG 13:22
PROVIDERS: ATTENDING PHYSICIAN Internal Medicine Hematology & Oncology; FAMILY PHYSICIAN Nurse Practitioner Family
DX: D56.9 Thalassemia, unspecified (principal); C56.3 Malignant neoplasm of bilateral ovaries; Z80.3 Family history of malignant neoplasm of breast; Z80.0 Family history of malignant neoplasm of digestive organs; R18.0 Malignant ascites; J91.0 Malignant pleural effusion; G89.3 Neoplasm related pain (acute) (chronic); D75.839 Thrombocytosis, unspecified; Z72.0 Tobacco use; E46 Unspecified protein-calorie malnutrition; R10.20 Pelvic and perineal pain unspecified side; C79.51 Secondary malignant neoplasm of bone
CPT/HCPCS: 36415; 80053; 85025

== ENCOUNTER → 2025-08-20 10:32 | Outpatient (REF) | payer OTHER, SELFPAY ==
[2025-08-20 11:40] LABS: Hematocrit 30.6 % (37.0-47.0); Hemoglobin 10.4 g/dL (12.0-16.0); Mean Corp Hgb Conc. 34.0 g/dL (33.0-37.0); Mean Corpuscular Volume 103.0 fL (81.0-99.0); Platelet Count 306 10^3/uL (130-400); Red Cell Dist. Width 16.2 % (11.5-14.5)
[2025-08-20 11:55] LABS: Absolute Neutrophils -Man Diff 1.6 10^3/uL (1.4-6.5); Platelets Checked Yes
[2025-08-20 11:56] LABS: Normal RBC Morphology Yes; Total Cells Counted 100
[2025-08-20 15:45] LABS: ALT (SGPT) 29 U/L (0-35); AST (SGOT) 31 U/L (14-36); Albumin 4.2 g/dl (3.5-5.0); Alkaline Phosphatase 372 U/L (38-126); Blood Urea Nitrogen 16 mg/dl (7-17); Calcium 8.9 mg/dl (8.4-10.2); Carbon Dioxide 24 mmol/L (22-30); Chloride 103 mmol/L (98-107); Glucose 85 mg/dl (70-99); Potassium 4.5 mmol/L (3.5-5.1); Sodium 133 mmol/L (135-145); Total Protein 6.6 g/dl (6.3-8.2); eGFR 56.11
== END ==
LOC: REG 10:32
PROVIDERS: ATTENDING PHYSICIAN Internal Medicine Hematology & Oncology; FAMILY PHYSICIAN Nurse Practitioner Family
DX: C56.9 Malignant neoplasm of unspecified ovary (principal); C56.3 Malignant neoplasm of bilateral ovaries; Z80.3 Family history of malignant neoplasm of breast; Z80.0 Family history of malignant neoplasm of digestive organs; R18.0 Malignant ascites; J91.0 Malignant pleural effusion; G89.3 Neoplasm related pain (acute) (chronic); D75.839 Thrombocytosis, unspecified; Z72.0 Tobacco use; E46 Unspecified protein-calorie malnutrition; R10.20 Pelvic and perineal pain unspecified side; C79.51 Secondary malignant neoplasm of bone
CPT/HCPCS: 36415; 80053; 85025